=== PATIENT | female | born 1940 | race Caucasian/White ===

== ENCOUNTER 2017-03-09 09:26 | Emergency (ER) | payer OTHER ==
[2017-03-09 09:37] VITALS: BP 131/60; BMI 26.9
--- NOTE | 2017-03-09 09:41 | DR.GENAD ---
HPI - PCP Primary Care Physician: KOREY - Complaint/Symptoms Chief Complaint Doctors Comments: Patient fell on last night, this morning c/o left inner thigh pain. She denies pain at this time. Chief Complaint:: PT C/O LT GROIN PAIN S/P FALL LAST NIGHT. PT'S DAUGHTER STATES SHE FEEL LAST NIGHT AND HAS NOT BEEN ABLE TO WALK VERY WELL WITHOUT PAIN. PT STATES THE PAIN STARTS IN HER LT HIP AND RADIATES TO HER RT GROIN - Source History Provided: Patient - Mode of Arrival Mode of Arrival: Wheelchair - Timing Onset of Chief Complaint: 03/09/17 PMH - PMH Past Medical History: Yes Past Medical History: Diabetes, [place] Past Surgical History: Yes Surgical History: CABG/Valve Surgery - Family History History of Family Medical Conditions: No - Social History Does any household member use tobacco: No Alcohol Use: None Do you use any recreational Drugs:: No Lives With: Family Lives Where: Home - infectious screening In the last 2 months have you had wt loss of >10#?: NO Have you had fever, night sweats or hemotysis?: No Have you traveled outside the country in the last 6 months?: No Isolation: Standard ROS - Review of Systems Eyes: No Symptoms Reported ENTM: No Symptoms Reported Respiratoy: No Symptoms Reported Cardiovascular: No Symptoms Reported Gastrointestinal/Abdominal: No Symptoms Reported Genitourinary: No Symptoms Reported Neurological: No Symptoms Reported Musculoskeletal: No Symptoms Reported Integumentary: No Symptoms Reported Hematologic/Lymphatic: No Symptoms Reported Endocrine: No Symptoms Reported Psychiatric: No Symptoms Reported All Other Systems: Reviewed and Negative PE - Vital Signs Vitals: Temperature 98.2 F Pulse Rate 74 Respiratory Rate 18 Blood Pressure 131/60 O2 Sat by Pulse Oximetry 97 - General General Appearance: Alert - Head Head Exam: Normal Inspection, Atraumatic - Eyes Eye exam: Normal Appearance, PERRL - ENT ENT Exam: Normal Exam External Ear Exam: Normal External Inspection TM/Canal Exam: Bilateral Normal Nose Exam: Normal Nose Exam Mouth Exam: Normal Inspection Throat Exam: Normal Inspection - Neck Neck Exam: Normal Inspection - Chest Chest Inspection: Normal Inspection - Respiratory Respiratory Exam: Normal Lung Sounds Bilat Respiratory Exam: Bilateral Clear to Auscultation - Cardiovascular Cardiovascular Exam: Regular Rate, Normal Rhythm - Abdominal Exam Abdominal Exam: Normal Bowel Sounds Abdominal Tenderness: negative: RUQ, RLQ, LUQ, LLQ, Epigastrium, Suprapubic, Diffuse, Mild, Moderate, Severe, Other - Extremities Extremities Exam: Normal Inspection, Full ROM, Normal Capillary Refill - Back Back Exam: Normal Inspection, Full ROM - Neurologic Neurological Exam: Alert, Oriented X3, CN II-XII Intact - Psychiatric Psychiatric Exam: Normal Affect - Skin Skin Exam: Warm, Dry, Intact ROR - XRAY XRAY Interpreted by: Radiologist (Left Hip: There is no eficence for fracture, dislocation or bone destruction. Joint space narrowing with subchondral cystic changes are present. There is bony proliferation at the acetabular callie, deepining the acetabulum. Extensive vascular calcification is present. Impression: Lef hip osteoarthritis. No acute freatures demonstrated.) - Diagnosis Discharge Problem: Osteoarthritis of left hip Qualifiers: Osteoarthritis type: unspecified Qualified Code(s): M16.12 - Unilateral primary osteoarthritis, left hip - Discharge Plan Condition: Stable - Follow ups/Referrals Follow ups/Referrals: Malcolm Santana [Primary Care Provider] - 3 days - Instructions
--- NOTE | 2017-03-09 10:09 | RAD ---
Examination: Left hip, three views History: Groin pain Findings: There is no evidence for fracture, dislocation or bone destruction. Joint space narrowing w ith subchondral cystic changes are present. There is bony proliferation at the acetabular margin, carlos pening the acetabulum. Extensive vascular calcification is present. Impression: Left hip osteoarthritis. No acute features demonstrated. Reported By:
== END 2017-03-09 10:43 | disposition home or self-care (01) ==
LOC: ER 09:40
DX: M16.12 Unilateral primary osteoarthritis, left hip (principal); W19.XXXA Unspecified fall, initial encounter; Y92.9 Unspecified place or not applicable
CPT/HCPCS: 73501; 99282

== ENCOUNTER 2017-04-13 18:05 | Inpatient (IN) | payer OTHER ==
--- NOTE | 2017-04-13 18:48 | RAD ---
HISTORY: 76-year-old female vomiting and week. Patient feels she has something stuck in her throat. Study: Frontal and lateral views of the soft tissues of the neck Comparison: None. Status post median sternotomy with multiple surgical clips overlying the left hemithorax. The prevertebral soft tissues are unremarkable in their appearance. No evidence for foreign body can be identified. The hypopharynx and distal airway appear unremarkable. The bony cervical spine is g rossly unremarkable. IMPRESSION: 1. No radiographic evidence of foreign body within the imaged airway, oropharynx or nasopharynx. Reported By:
[2017-04-13] MEDS ORDERED: NS 1000 ML 1,000 ML IV ONE (18:49)
--- NOTE | 2017-04-13 18:54 | DR.GENAD ---
HPI - PCP Primary Care Physician: dwayne - Complaint/Symptoms Chief Complaint Doctors Comments: Patient reports that she thinks that she has something in her throat. She has been coughing with nausea. Denies fever. Chief Complaint:: patints family stated she has been vomiting today and very weak. patient states she thinks she has something in her throat. - Source History Provided: Patient - Mode of Arrival Mode of Arrival: Ambulatory - Timing Onset of Chief Complaint: 04/13/17 PMH - PMH Past Medical History: Yes Past Medical History: Diabetes, [place] Past Surgical History: Yes Surgical History: CABG/Valve Surgery - Family History History of Family Medical Conditions: No - Social History Does patient currently use any type of tobacco product: No Have you used tobacco products in the last 12 months: No Type of Tobacco Use: None Does any household member use tobacco: No Alcohol Use: None Do you use any recreational Drugs:: No Lives With: Family Lives Where: Home - infectious screening In the last 2 months have you had wt loss of >10#?: NO Have you had fever, night sweats or hemotysis?: No Have you traveled outside the country in the last 6 months?: No Isolation: Standard ROS - Review of Systems Eyes: No Symptoms Reported ENTM: No Symptoms Reported Respiratoy: Non-Productive Cough Cardiovascular: No Symptoms Reported Gastrointestinal/Abdominal: No Symptoms Reported Genitourinary: No Symptoms Reported Neurological: No Symptoms Reported Musculoskeletal: No Symptoms Reported Integumentary: No Symptoms Reported Hematologic/Lymphatic: No Symptoms Reported Endocrine: No Symptoms Reported Psychiatric: No Symptoms Reported All Other Systems: Reviewed and Negative PE - Vital Signs Vitals: Temperature 97.9 F Pulse Rate 93 Respiratory Rate 16 Blood Pressure 138/80 O2 Sat by Pulse Oximetry 98 - General Limitations: No Limitations General Appearance: Alert, In No Apparent Distress - Head Head Exam: Normal Inspection, Atraumatic - Eyes Eye exam: Normal Appearance, PERRL, EOMI - ENT ENT Exam: Normal Exam External Ear Exam: Normal External Inspection TM/Canal Exam: Bilateral Normal Nose Exam: Normal Nose Exam Mouth Exam: Normal Inspection Throat Exam: Normal Inspection - Neck Neck Exam: Normal Inspection - Chest Chest Inspection: Normal Inspection - Respiratory Respiratory Exam: Normal Lung Sounds Bilat Respiratory Exam: Bilateral Clear to Auscultation - Cardiovascular Cardiovascular Exam: Regular Rate - Abdominal Exam Abdominal Exam: Normal Inspection Abdominal Tenderness: negative: RUQ, RLQ, LUQ, LLQ, Epigastrium, Suprapubic, Diffuse, Mild, Moderate, Severe, Other - Extremities Extremities Exam: Normal Inspection, Full ROM - Back Back Exam: Normal Inspection, Full ROM - Neurologic Neurological Exam: Alert, Oriented X3, CN II-XII Intact - Psychiatric Psychiatric Exam: Normal Affect, Normal Mood - Skin Skin Exam: Warm, Dry Course - Consultation Called: 21:15 (Dr Santana agreet to admit for further management) ROR - Labs Reviewed Result Diagrams: 04/13/17 18:55 04/13/17 18:55 Laboratory: WBC 36.0 X10^3/uL (3.6-10.0) H* 04/13/17 18:55 RBC 3.84 X10^6/uL (3.5-5.4) 04/13/17 18:55 Hgb 11.4 g/dL (12.0-16.0) L 04/13/17 18:55 Hct 35.6 % (36.0-47.0) L 04/13/17 18:55 MCV 92.7 fL (80.0-100.0) 04/13/17 18:55 MCH 29.8 pg (27.0-34.0) 04/13/17 18:55 MCHC 32.1 g/dL (33.0-35.0) L 04/13/17 18:55 RDW 16.3 % (11.6-16.5) 04/13/17 18:55 Plt Count 153 X10^3/uL (150.0-450.0) 04/13/17 18:55 Plt Count Comment Adequate (ADEQUATE) 04/13/17 18:55 MPV 8.7 fL (7.4-11.0) 04/13/17 18:55 Neut % 20.3 % (42.0-75.0) L 04/13/17 18:55 Lymph % 0.2 % (21.0-51.0) L 04/13/17 18:55 [place] % 79.3 % (0.0-13.0) H 04/13/17 18:55 Eos % 0.1 % (0.9-2.9) L 04/13/17 18:55 Baso % 0.1 % (0.2-1.0) L 04/13/17 18:55 Neut # 7.3 x10^3/uL (2.2-4.8) H 04/13/17 18:55 Lymph # 0.1 X10^3/uL (1.3-2.9) L 04/13/17 18:55 [place] # 28.5 x10^3/uL (0.3-0.8) H 04/13/17 18:55 Eos # 0.0 x10^3/uL (0.0-0.2) 04/13/17 18:55 Baso # 0.0 X10^3/uL (0.0-0.1) 04/13/17 18:55 Absolute Nucleated RBC 0.3 /100WBC 04/13/17 18:55 Total Counted 100 04/13/17 18:55 Neutrophils % (Manual) 16 % (39-76) L 04/13/17 18:55 Lymphocytes % (Manual) 35 % (13-43) 04/13/17 18:55 Monocytes % (Manual) 2 % (4-9) L 04/13/17 18:55 Eosinophils % (Manual) 1 % (0-6) 04/13/17 18:55 Atypical Lymphocytes 46 04/13/17 18:55 Plt Morphology Comment Normal (NORMAL) 04/13/17 18:55 RBC Morphology Normal (NORMAL) 04/13/17 18:55 Sodium 139 mmol/L (136-145) 04/13/17 18:55 Corrected Sodium TNP 04/13/17 18:55 Potassium 3.8 mmol/L (3.5-5.1) 04/13/17 18:55 Chloride 104 mmol/L (98-107) 04/13/17 18:55 Carbon Dioxide 26.3 mmol/L (21-32) 04/13/17 18:55 BUN 13 mg/dL (7-18) 04/13/17 18:55 Creatinine 1.07 mg/dL (0.55-1.02) H 04/13/17 18:55 Est GFR (MDRD) Af Amer > 60 (>60) 04/13/17 18:55 Est GFR (MDRD) Non-Af 53 (>60) L 04/13/17 18:55 Glucose 74 mg/dL (65-99) 04/13/17 18:55 Calcium 8.5 mg/dL (8.5-10.1) 04/13/17 18:55 Corrected Calcium Cancelled 04/13/17 18:55 Total Bilirubin Cancelled 04/13/17 18:55 AST Cancelled 04/13/17 18:55 ALT Cancelled 04/13/17 18:55 Alkaline Phosphatase Cancelled 04/13/17 18:55 C-Reactive Protein 15.80 mg/L (0-3.0) H 04/13/17 18:55 Total Protein Cancelled 04/13/17 18:55 Albumin Cancelled 04/13/17 18:55 Globulin Cancelled 04/13/17 18:55 Albumin/Globulin Ratio Cancelled 04/13/17 18:55 - XRAY XRAY Interpreted by: Self (Chest: Left lower lobe infiltrate c/w with pneumonia) - Diagnosis Discharge Problem: LLL pneumonia Qualifiers: Pneumonia type: due to unspecified organism Qualified Code(s): J18.1 - Lobar pneumonia, unspecified organism - Discharge Plan Condition: Stable - Follow ups/Referrals Follow ups/Referrals: Malcolm Santana [Primary Care Provider] - 3 days - Instructions
[2017-04-13 19:10] LABS: BLOOD UREA NITROGEN 13 mg/dL (7-18); CALCIUM 8.5 mg/dL (8.5-10.1); CARBON DIOXIDE 26.3 mmol/L (21-32); CHLORIDE 104 mmol/L (98-107); CREATININE 1.07 mg/dL (0.55-1.02); SODIUM 139 mmol/L (136-145); eGFR BLACK RACES > 60 (>60); eGFR NON BLACK RACES 53 (>60)
[2017-04-13] MEDS ORDERED: NS 1000 ML 1,000 ML ONE (19:11)
[2017-04-13 19:13] LABS: BASOPHILS % (AUTO) 0.1 % (0.2-1.0); EOSINOPHILS % (AUTO) 0.1 % (0.9-2.9); HEMATOCRIT 35.6 % (36.0-47.0); HEMOGLOBIN 11.4 g/dL (12.0-16.0); LYMPHOCYTES # (AUTO) 0.1 X10^3/uL (1.3-2.9); LYMPHOCYTES % (AUTO) 0.2 % (21.0-51.0); MEAN CORPUSCULAR HEMOGLOBIN 29.8 pg (27.0-34.0); MEAN CORPUSCULAR HGB CONC 32.1 g/dL (33.0-35.0); MEAN CORPUSCULAR VOLUME 92.7 fL (80.0-100.0); MEAN PLATELET VOLUME 8.7 fL (7.4-11.0); MONOCYTES # (AUTO) 28.5 x10^3/uL (0.3-0.8); MONOCYTES % (AUTO) 79.3 % (0.0-13.0); NEUTROPHILS # (AUTO) 7.3 x10^3/uL (2.2-4.8); NEUTROPHILS % (AUTO) 20.3 % (42.0-75.0); PLATELET COUNT 153 X10^3/uL (150.0-450.0); RED BLOOD COUNT 3.84 X10^6/uL (3.5-5.4); RED CELL DISTRIBUTION WIDTH 16.3 % (11.6-16.5)
[2017-04-13 19:51] LABS: PLATELET MORPHOLOGY COMMENT NORMAL (NORMAL)
[2017-04-13] MEDS ORDERED: ZOFRAN INJ 4 MG VIAL IVP ONE (19:57)
[2017-04-13] MEDS ORDERED: ZOFRAN INJ 4 MG VIAL ONE (20:05)
[2017-04-13] MEDS ORDERED: TUSSIONEX PENNKINETIC SUSP PO PRN (21:23)
--- NOTE | 2017-04-13 21:30 | RAD ---
HISTORY: 76-year-old female vomiting with shortness of breath and weakness. Study: Frontal view of the chest. Comparison: None. Findings: Status post CABG with multiple surgical clips overlying the left taye thorax. The trachea is midline. The cardiac silhouette is enlarged with moderate pulmonary edema, small bila teral effusions and patchy airspace opacities in the lung bases. Prominent perihilar lung markings. No pneumothorax. Soft tissues are unremarkable. Osseous structures are unremarkable. IMPRESSION: 1. Cardiomegaly with moderate pulmonary edema and small effusions. 2. Patchy airspace opacities in the lung bases, atelectasis versus infection, correlate clinically. Reported By:
[2017-04-13] MEDS: NS IV SCH (21:35)
[2017-04-13] MEDS: ROCEPHIN IV SCH (21:35)
[2017-04-13] MEDS: NS 1/2 1000 ML IV 1,000 ML IV SCH (21:35)
[2017-04-13] MEDS ORDERED: ATIVAN INJ 2 MG VIAL IVP ONE (21:50)
[2017-04-13] MEDS ORDERED: ATIVAN INJ 2 MG VIAL ONE (21:52)
[2017-04-13] MEDS ORDERED: NS 1/2 1000 ML IV 1,000 ML IV SCH (22:00)
[2017-04-13 23:02] VITALS: BMI 20.9
[2017-04-14] MEDS: DUONEB 0.5 MG/3 MG NEB SCH ×5 (06:00→21:39)
[2017-04-14 06:18] LABS: BASOPHILS % (AUTO) 0 % (0.2-1.0); EOSINOPHILS % (AUTO) 0.1 % (0.9-2.9); HEMOGLOBIN 9.7 g/dL (12.0-16.0)
[2017-04-14 06:22] LABS: ALANINE AMINOTRANSFERASE 16 Units/L (12-78); ALBUMIN 2.3 g/dL (3.4-5.0); ALKALINE PHOSPHATASE 143 Units/L (46-116); ASPARTATE AMINO TRANSFERASE 45 Units/L (15-37); BLOOD UREA NITROGEN 12 mg/dL (7-18); CALCIUM 7.9 mg/dL (8.5-10.1); CARBON DIOXIDE 27.9 mmol/L (21-32); CHLORIDE 106 mmol/L (98-107); COR CA(FOR HYPOALB) 9.3 mg/dL (8.5-10.1); CREATININE 1.06 mg/dL (0.55-1.02); SODIUM 141 mmol/L (136-145); TOTAL PROTEIN 5.6 g/dL (6.4-8.2); eGFR BLACK RACES > 60 (>60); eGFR NON BLACK RACES 53 (>60)
[2017-04-14 06:27] LABS: BILIRUBIN,URINE NEGATIVE (NEGATIVE); BLOOD/HEMOGLOBIN,URINE 2+ (NEGATIVE); GLUCOSE, URINE NEGATIVE (NEGATIVE); KETONES,URINE NEGATIVE (NEGATIVE); LEUKOCYTE ESTERASE ,URINE 3+ (NEGATIVE); NITRITES,URINE NEGATIVE (NEGATIVE); PROTEIN,URINE 2+ (NEGATIVE); UROBILINOGEN,URINE NORMAL (NORMAL)
[2017-04-14 06:30] LABS: HEMATOCRIT 30.2 % (36.0-47.0); LYMPHOCYTES # (AUTO) 0.1 X10^3/uL (1.3-2.9); LYMPHOCYTES % (AUTO) 0.2 % (21.0-51.0); MEAN CORPUSCULAR HEMOGLOBIN 29.5 pg (27.0-34.0); MEAN CORPUSCULAR HGB CONC 32.1 g/dL (33.0-35.0); MEAN CORPUSCULAR VOLUME 91.8 fL (80.0-100.0); MEAN PLATELET VOLUME 8.9 fL (7.4-11.0); MONOCYTES # (AUTO) 31.6 x10^3/uL (0.3-0.8); MONOCYTES % (AUTO) 82.1 % (0.0-13.0); NEUTROPHILS # (AUTO) 6.8 x10^3/uL (2.2-4.8); NEUTROPHILS % (AUTO) 17.6 % (42.0-75.0); PLATELET COUNT 145 X10^3/uL (150.0-450.0); RED BLOOD COUNT 3.29 X10^6/uL (3.5-5.4)
[2017-04-14 06:33] LABS: APPEARANCE,URINE SLIGHTLY HAZY (CLEAR); COLOR,URINE YELLOW (YELLOW); SQUAMOUS EPITHELIAL CELL,UR RARE /HPF (NEGATIVE)
[2017-04-14 06:34] LABS: AMORPHOUS SEDIMENT,UR 1+ /HPF (NEGATIVE); BACTERIA,URINE TRACE /HPF (NEGATIVE)
[2017-04-14 06:46] LABS: WHITE BLOOD COUNT 38.5 X10^3/uL (3.6-10.0)
[2017-04-14 06:47] LABS: PLATELET MORPHOLOGY COMMENT NORMAL (NORMAL)
[2017-04-14] MEDS ORDERED: VIBRAMYCIN 100 MG in NS 100 ML IV + SPIKE MINIBAG* 100 ML IV SCH (09:00)
[2017-04-14] MEDS: NS IV SCH (09:22)
[2017-04-14] MEDS: ROCEPHIN IV SCH (09:22)
[2017-04-14] MEDS: ROBITUSSIN DM PO SCH ×4 (09:22→21:41)
[2017-04-14] MEDS ORDERED: NEURONTIN CAP 100 MG PO PRN (09:53)
[2017-04-14] MEDS ORDERED: VITAMIN D (1.25MG) PO SCH (10:00)
[2017-04-14] MEDS ORDERED: PATIENT'S HOME MEDICATION (Ferrous Sulfate [Ferrous Sulfate] 325 MG) PO SCH (10:00)
[2017-04-14] MEDS ORDERED: DOCUSATE SODIUM 250 MG PO SCH (10:00)
[2017-04-14] MEDS: MEGACE PO SCH ×2 (10:54→21:41)
[2017-04-14] MEDS: LOPRESSOR TAB 25 MG PO SCH ×2 (10:54→21:41)
[2017-04-14] MEDS: ASPIRIN EC 81 MG PO SCH (10:54)
[2017-04-14] MEDS: FOLIC ACID TAB 1 MG PO SCH (10:54)
[2017-04-14] MEDS: PROzac PO SCH (10:54)
[2017-04-14] MEDS: SYNTHROID 25 mcg TAB PO SCH (10:54)
[2017-04-14] MEDS ORDERED: NS 1/2 1000 ML IV 1,000 ML IV ONE (10:57)
--- NOTE | 2017-04-14 11:26 | DR.H&P ---
H&P - History & Physical for Day of: H&P Date: 04/13/17 - Chief Complaint Chief Complaint: weakness, N/V, cough - Allergies Allergies/Adverse Reactions: Allergies Allergy/AdvReac Type Severity Reaction Status Date / Time No Known Drug Allergies Allergy Verified 04/13/17 18:06 - History of Present Illness History of Present Illness: is a 76 year old patient of ours who presented to the emergency room with family with complaints of weakness, nausea , and vomiting. Patient reports that she feels like she has something stuck in her throat. Symptoms reportedly started early today and have progressively gotten worse. Pertinent medical history includes CAD, [place], hyperlipidemia, hypertension, CABG, pneumonia, constipation, urinary tract infections, muscle weakness, arthritis, diabetes, hypothyroidism, anemia, skin cancer, anxiety, depression, and CABG/valve surgery. On examination, patient is noted with an intermittent, non-productive cough. Heart is regular in rate and rhythm. Diminished lung sounds are noted bilaterally throughout. Abdomen is round, soft , and non-tender with normal bowel sounds noted in all quadrants. Bilateral lower extremities are noted with 3+ pitting edema. On arrival to the emergency room, vitals were 97.8, 100, 28, 95%RA, 160/87. Labs were obtained. Abnormal Lab values include: WBC 36.0, Hgb 11.4, Hct 35.6, MCHC 32.1, Creatinine 1.07, GFR(non) 53, CRP 15.80. Urinalysis reported WBC TNTC, RBC 10-12, Bacteria Trace , Leukocytes 3+, Protein 2+. A urine culture and sputum culture are pending. Chest xray reported: Cardiomegaly with moderate pulmonary edema and small effusions. Patchy airspace opacities in the lung bases, atelectasis versus infection, correlate clinically. A soft tissue neck CT was obtained to rule out foreign body. It reported Soft tissue neck CT: No radiographic evidence of foreign body within the imaged airway, oropharynx, or nasopharynx. She was given a normal saline bolus in the ER. We admitted patient for further treatment and evaluation for LLL pneumonia and urinary tract infection. She was started on the pneumonia protocol with Rocephin 1500mg IV daily. We plan to follow up with AM labs and chest xray and continue to monitor patient. - Past Medical History Past Medical History: Diabetes, [place] - Past Surgical History Surgical History: CABG/Valve Surgery - Family History Family Medical History: Diabetes Mellitus, Cancer, Coronary Artery Disease, Hypertension - Social History Does patient currently use any type of tobacco product: No Have you used tobacco products in the last 12 months: No Type of Tobacco Use: None Does any household member use tobacco: No Alcohol Use: None Drug Use: None - Medications Home Medications: Alprazolam [Alprazolam] 0.5 mg PO BID 04/13/17 [History Confirmed 04/13/17] Aspirin EC [ASPIRIN EC 81 MG *] 81 mg PO DAILY 04/13/17 [History Confirmed 04/13] Atorvastatin Calcium 40 mg PO DAILYHS 04/13/17 [History Confirmed 04/13/17] Docusate Sodium [Col-Rite] 250 mg PO DAILY 04/13/17 [History Confirmed 04/13/17] Ergocalciferol [Vitamin D (1.25MG)] 50,000 unit PO WEEKLY 04/13/17 [History Confirmed 04/13/17] Ferrous Sulfate 325 mg PO DAILY 04/13/17 [History Confirmed 04/13/17] Fluoxetine HCl [FLUOXETINE 20 MG *] 20 mg PO DAILY 04/13/17 [History Confirmed 04/13/17] Folic Acid [Folic Acid Tab 1 mg] 1 mg PO DAILY 04/13/17 [History Confirmed 04/13] Gabapentin [Gabapentin] 100 mg PO BID PRN 04/13/17 [History Confirmed 04/13/17] Levothyroxine Sodium 25 mcg PO DAILY 04/13/17 [History Confirmed 04/13/17] Megestrol Acetate [Megace] 40 mg PO BID 04/13/17 [History Confirmed 04/13/17] Meloxicam [Meloxicam] 15 mg PO DAILY 04/13/17 [History Confirmed 04/13/17] Metoprolol Tartrate 25 mg PO BID 04/13/17 [History Confirmed 04/13/17] - Review of Systems Constitutional: Weakness Eyes: No Symptoms Reported. denies: See HPI, Pain, Vision Change, Conjunctivae Inflammation, Eyelid Inflammation, Redness, Other ENT: No Symptoms Reported. denies: See HPI, Ear Pain, Ear Discharge, Nose Pain , Nose Discharge, Nose Congestion, Mouth Pain, Mouth Swelling, Throat Pain, Throat Swelling, Other Respiratory: Cough, Shortness of Breath Cardiovascular: No Symptoms Reported, Edema Gastrointestinal: Nausea, Vomiting. denies: Abdominal Pain, Diarrhea, Constipation, Hematochezia Genitourinary: denies: No Symptoms Reported, See HPI, Dysuria, Frequency, Incontinence, Hematuria, Retention, Other Musculoskeletal: No Symptoms Reported. denies: See HPI, Shoulder Pain, Arm Pain , Back Pain, Hand Pain, Leg Pain, Foot Pain, Neck Pain, Other Skin: No Symptoms Reported. denies: See HPI, Rash, Lesions, Jaundice, Bruising , Wound, Ecchymosis, Other Neurological: Weakness - Physical Exam Vital Signs: Temperature 98.6 F Pulse Rate [Left Radial] 107 Pulse Rate 100 Respiratory Rate 20 Blood Pressure [Right Arm] 184/78 Blood Pressure 138/80 O2 Sat by Pulse Oximetry 95 Oriented: Normal Eyes: Normal. negative: Blurred Vision, Diplopia, Discharge, Pain, Redness, Photophobia, Other Ear: Normal. negative: Right, Left, Swelling, Ecchymosis, Hemotypanum, Abrasion , Laceration Nose: Normal. negative: Injected, Discharge, Blood, Other Throat: Normal. negative: Tonsillar Hypertrophy, Red, Exudate, Dry, Other Respiratory: Diminished Throughout Cardiovascular: Edema (3+ pitting edema to bilateral lower extremities ) : Normal. negative: Dysuria, Hematuria, Frequency, Discharge, Testicular Pain , Bleeding, , Other Auscultation: Bowel Sounds: Normal. negative: Bruit, Absent, Increased, Decreased, High Pitched, Other Palpation: Normal. negative: Spleen Enlarged, Liver Enlarged, Mass Pulsatile, Other Tenderness: Normal. negative: Diffuse, RUQ, RLQ, LUQ, LLQ, Epigastric, Periumbilical, Suprapubic, Mild, Moderate, Severe, Rebound, Guarding, Rigidity, Other Skin: Normal. negative: Decreased Turgur, Rash, Papular, Macular, Maculopapular , Vesicular, Pustular, Petechial, Red, Tender, Hot, Diaphoresis, Wound, Bruising , Ecchymosis, Other Musculoskeletal: Normal. negative: Right, Left, Shoulder, Clavicle, Arm, Elbow , Forearm, Wrist, Hand, Hip, Thigh, Knee, Leg, Ankle, Foot, Back:Thoracic, Back: Lumbar, Back:Midline, Back:Paraspinous, Pelvis, Swelling, Tender, Deformity, Pulse Deficit, Motor Deficit, Sensory Deficit, Instability, Crepitance Psychiatric: Normal Mood Description: Calm Affect: Normal Speech Pattern: Clear - Assessment/Plan (1) LLL pneumonia Qualifiers: Pneumonia type: due to unspecified organism Qualified Code(s): J18.1 - Lobar pneumonia, unspecified organism Status: Acute Plan: pneumonia protocol, rocephin 1500mg iv daily, supplemental oxygen, duonebs , continue to monitor (2) Urinary tract infection Qualifiers: Urinary tract infection type: acute cystitis Hematuria presence: with hematuria Qualified Code(s): N30.01 - Acute cystitis with hematuria Status: Acute Plan: rocephin 1500mg iv daily, continue to monitor
[2017-04-14] MEDS: NS 1/2 1000 ML IV 1,000 ML IV SCH (11:43)
[2017-04-14] MEDS: SNACK - Diabetic Appropriate PO SCH ×2 (15:29→22:30)
[2017-04-14] MEDS: LEVAQUIN PREMIX IV 750 MG 750 MG/150 ML BAG IV SCH (15:57)
[2017-04-14] MEDS: ALBUMIN HUMAN 25%- 100ML 100 ML IV SCH (15:57)
[2017-04-14] MEDS: XANAX PO SCH ×2 (16:00→22:31)
[2017-04-14] MEDS: FORTAZ or TAZICEF INJ 1 GM in NS 50 ML IV 50 ML IV SCH ×2 (16:00→22:31)
[2017-04-14] MEDS ORDERED: PHARMACY CONSULT - TPN XX SCH (16:00)
[2017-04-14] MEDS: CLINIMIX 4.25 %/10 % 1,000 ML with MVI INJ (ADULT) 10 ML, TRACE ELEMENTS INJ 10 ML, DRU... IV SCH ×4 (16:01)
[2017-04-14] MEDS: LIPITOR TAB 40 MG PO SCH (21:41)
[2017-04-14] MEDS: COLACE CAP 100 MG PO SCH (21:41)
[2017-04-15] MEDS: DUONEB 0.5 MG/3 MG NEB SCH ×6 (01:47→22:46)
[2017-04-15] MEDS ORDERED: HumuLIN R SUBCUT PRN (03:34)
[2017-04-15] MEDS: NS 1/2 1000 ML IV 1,000 ML IV SCH (05:34)
[2017-04-15] MEDS: FORTAZ or TAZICEF INJ 1 GM in NS 50 ML IV 50 ML IV SCH ×3 (05:34→21:26)
[2017-04-15] MEDS: CLINIMIX 4.25 %/10 % 1,000 ML with MVI INJ (ADULT) 10 ML, TRACE ELEMENTS INJ 10 ML, DRU... IV SCH ×8 (05:34→21:18)
[2017-04-15 06:10] LABS: BASOPHILS % (AUTO) 0 % (0.2-1.0); EOSINOPHILS # (AUTO) 0.1 x10^3/uL (0.0-0.2); EOSINOPHILS % (AUTO) 0.3 % (0.9-2.9); HEMATOCRIT 29.5 % (36.0-47.0); HEMOGLOBIN 9.6 g/dL (12.0-16.0); LYMPHOCYTES # (AUTO) 0 X10^3/uL (1.3-2.9); LYMPHOCYTES % (AUTO) 0 % (21.0-51.0); MEAN CORPUSCULAR HEMOGLOBIN 30.1 pg (27.0-34.0); MEAN CORPUSCULAR HGB CONC 32.5 g/dL (33.0-35.0); MEAN CORPUSCULAR VOLUME 92.6 fL (80.0-100.0); MEAN PLATELET VOLUME 9.1 fL (7.4-11.0); MONOCYTES % (AUTO) 80.6 % (0.0-13.0); NEUTROPHILS # (AUTO) 6.4 x10^3/uL (2.2-4.8); NEUTROPHILS % (AUTO) 19.1 % (42.0-75.0); PLATELET COUNT 133 X10^3/uL (150.0-450.0); RED BLOOD COUNT 3.19 X10^6/uL (3.5-5.4); RED CELL DISTRIBUTION WIDTH 16.3 % (11.6-16.5)
[2017-04-15 06:15] LABS: WHITE BLOOD COUNT 33.6 X10^3/uL (3.6-10.0)
[2017-04-15 06:18] LABS: ALBUMIN 2.4 g/dL (3.4-5.0); COR CA(FOR HYPOALB) 9.3 mg/dL (8.5-10.1); CREATININE 1.19 mg/dL (0.55-1.02); TOTAL PROTEIN 5.2 g/dL (6.4-8.2)
[2017-04-15 07:30] LABS: PLATELET MORPHOLOGY COMMENT NORMAL (NORMAL)
--- NOTE | 2017-04-15 07:46 | RAD ---
HISTORY: Follow-up left lower lobe pneumonia Study: Single-view chest Comparison: April 13, 2017 Findings: Prior sternotomy and aortic atherosclerosis are noted. The trachea is midline. The cardiac silhouett e is enlarged with central vascular congestion and diffuse interstitial thickening some of which is l ikely chronic but with superimposed interstitial edema likely perhaps in the setting of congestive fa ilure. There is overall improved aeration of the left lung base with trace residual fluid and consol idation noted but with interval progressive fluid and consolidation in the right lung base which agai n could reflect edema or pneumonia. There is no pneumothorax. The bony thorax is grossly unremarkab le. IMPRESSION: Radiographic findings favored to represent a background of interstitial edema likely in the setting o f congestive failure with overall improved aeration of the left lower lung but with progressive fluid and consolidation in the right lower lobe for which superimposed pneumonia is not excluded. Reported By:
[2017-04-15] MEDS: ALBUMIN HUMAN 25%- 100ML 100 ML IV SCH (09:20)
[2017-04-15] MEDS: XANAX PO SCH ×2 (09:23→21:31)
[2017-04-15] MEDS: HEMOCYTE-PLUS PO SCH (09:23)
[2017-04-15] MEDS: LOPRESSOR TAB 25 MG PO SCH ×2 (09:23→21:30)
[2017-04-15] MEDS: MEGACE PO SCH ×2 (09:23→21:30)
[2017-04-15] MEDS: FOLIC ACID TAB 1 MG PO SCH (09:23)
[2017-04-15] MEDS: SYNTHROID 25 mcg TAB PO SCH (09:23)
[2017-04-15] MEDS: ASPIRIN EC 81 MG PO SCH (09:23)
[2017-04-15] MEDS: ROBITUSSIN DM PO SCH ×4 (09:23→21:34)
[2017-04-15] MEDS: PROzac PO SCH (09:23)
[2017-04-15] MEDS: LEVAQUIN PREMIX IV 750 MG 750 MG/150 ML BAG IV SCH (09:55)
[2017-04-15] MEDS ORDERED: ZOFRAN INJ 4 MG VIAL IVP PRN (12:25)
[2017-04-15] MEDS: LIPITOR TAB 40 MG PO SCH (21:29)
[2017-04-15] MEDS: COLACE CAP 100 MG PO SCH (21:29)
[2017-04-16] MEDS: DUONEB 0.5 MG/3 MG NEB SCH ×6 (01:20→21:08)
[2017-04-16 05:48] LABS: ALANINE AMINOTRANSFERASE 13 Units/L (12-78); ALBUMIN 2.4 g/dL (3.4-5.0); ALKALINE PHOSPHATASE 106 Units/L (46-116); ASPARTATE AMINO TRANSFERASE 30 Units/L (15-37); BLOOD UREA NITROGEN 17 mg/dL (7-18); CALCIUM 8.2 mg/dL (8.5-10.1); CARBON DIOXIDE 27.6 mmol/L (21-32); CHLORIDE 103 mmol/L (98-107); COR CA(FOR HYPOALB) 9.5 mg/dL (8.5-10.1); COR NA(FOR HYPERGLY) 140 mmol/L (136-145); CREATININE 1.09 mg/dL (0.55-1.02); SODIUM 139 mmol/L (136-145); TOTAL PROTEIN 5.3 g/dL (6.4-8.2); eGFR BLACK RACES > 60 (>60); eGFR NON BLACK RACES 52 (>60)
[2017-04-16] MEDS: FORTAZ or TAZICEF INJ 1 GM in NS 50 ML IV 50 ML IV SCH ×3 (06:00→21:36)
[2017-04-16 06:12] LABS: BASOPHILS % (AUTO) 0 % (0.2-1.0); EOSINOPHILS # (AUTO) 0.2 x10^3/uL (0.0-0.2); EOSINOPHILS % (AUTO) 0.5 % (0.9-2.9); HEMATOCRIT 27.9 % (36.0-47.0); HEMOGLOBIN 9.1 g/dL (12.0-16.0); LYMPHOCYTES # (AUTO) 0.7 X10^3/uL (1.3-2.9); LYMPHOCYTES % (AUTO) 2.1 % (21.0-51.0); MEAN CORPUSCULAR HEMOGLOBIN 29.6 pg (27.0-34.0); MEAN CORPUSCULAR HGB CONC 32.6 g/dL (33.0-35.0); MEAN CORPUSCULAR VOLUME 90.9 fL (80.0-100.0); MEAN PLATELET VOLUME 9.4 fL (7.4-11.0); MONOCYTES # (AUTO) 26.1 x10^3/uL (0.3-0.8); MONOCYTES % (AUTO) 77.4 % (0.0-13.0); NEUTROPHILS # (AUTO) 6.7 x10^3/uL (2.2-4.8); PLATELET COUNT 123 X10^3/uL (150.0-450.0); RED BLOOD COUNT 3.07 X10^6/uL (3.5-5.4); RED CELL DISTRIBUTION WIDTH 16.5 % (11.6-16.5)
[2017-04-16 06:29] LABS: WHITE BLOOD COUNT 33.7 X10^3/uL (3.6-10.0)
[2017-04-16 06:41] LABS: PLATELET MORPHOLOGY COMMENT NORMAL (NORMAL)
--- NOTE | 2017-04-16 08:02 | RAD ---
Findings: Examination: Portable AP chest History: Pneumonia Comparison 04/15/2017 Findings: Continued cardiac enlargement with pulmonary vascular distention and bibasal densities cons istent with airspace disease/edema, and pleural fluid. No complicating pneumothorax is seen. The uppe r lobes remain relatively clear. Impression: No definite change since 1 day earlier. Stable cardiac enlargement and CHF with suspect b maig pneumonia and pleural fluid. Reported By:
[2017-04-16] MEDS: ALBUMIN HUMAN 25%- 100ML 100 ML IV SCH (09:13)
[2017-04-16] MEDS: LEVAQUIN PREMIX IV 750 MG 750 MG/150 ML BAG IV SCH (09:13)
[2017-04-16] MEDS: FOLIC ACID TAB 1 MG PO SCH (09:13)
[2017-04-16] MEDS: SYNTHROID 25 mcg TAB PO SCH (09:13)
[2017-04-16] MEDS: HEMOCYTE-PLUS PO SCH (09:14)
[2017-04-16] MEDS: MEGACE PO SCH ×2 (09:14→21:35)
[2017-04-16] MEDS: PROzac PO SCH (09:14)
[2017-04-16] MEDS: XANAX PO SCH ×2 (09:14→21:36)
[2017-04-16] MEDS: LOPRESSOR TAB 25 MG PO SCH ×2 (09:14→21:34)
[2017-04-16] MEDS: ROBITUSSIN DM PO SCH ×4 (09:15→21:35)
[2017-04-16] MEDS: CLINIMIX 4.25 %/10 % 1,000 ML with MVI INJ (ADULT) 10 ML, TRACE ELEMENTS INJ 10 ML, DRU... IV SCH ×4 (09:15)
[2017-04-16] MEDS: ASPIRIN EC 81 MG PO SCH (09:15)
[2017-04-16] MEDS: COLACE CAP 100 MG PO SCH (21:33)
[2017-04-16] MEDS: LIPITOR TAB 40 MG PO SCH (21:34)
--- NOTE | 2017-04-16 21:57 | PCM.PROG ---
Progress Note - Progress Note for Day of Date: 04/14/17 - Subjective Subjective: WAS ADMITTED FOR LLL PNEUMONIA. TODAY, SHE IS ALERT AND ORIENTED, SITTING UP IN BED ON MORNING ROUNDS. TODAY, SHE CONTINUES WITH COMPLAINTS OF WEAKNESS, PERSISTENT, PRODUCTIVE COUGH, AND SHORTNESS OF BREATH. SHE REPORTS THAT NAUSEA AND VOMITING HAS IMPROVED SINCE ADMISSION. ON EXAMINATION, HEART IS REGULAR IN RATE AND RHYTHM. SHE IS NOTED WITH COURSE WHEEZING AND RHONCHI THROUGOUT. SHE IS CURRENTLY UTILIZING OXYGEN VIA NASAL CANNULA AT 2L/MIN. ABDOMEN IS ROUND, SOFT, AND NOTED WITH DIFFUSE TENDERNESS ON PALPATION. PATIENT REPORTS DARK STOOLS. BILATERAL LOWER EXTREMITIES CONTINUE WITH 1+ PITTING EDEMA. THERE IS NORMAL RANGE OF MOTION NOTED TO ALL EXTREMITIES. HER VITALS THIS MORNING ARE 98.6-107-20-95%-184/78. LABS WERE OBTAINED THIS MORNING. ABNORMAL LAB VALUES INCLUDE THE FOLLOWING: WBC INCREASED FROM 36.0 TO 38.5, RBC 3.29, HGB 9.7, HCT 30.2, PLT COUNT 145, CREATININE 1.06, GLUCOSE 44, CALCIUM 7.9, AST 45, ALK PHOS 143, TOTAL PROTEIN 5.6, ALBUMIN 2.3. WE OBTAINED A URINALYSIS THIS MORNING. IT REPORTED WBC TNTC, RBC 10-12, LEUKOCYTES 3+, BACTERIA TRACE, PROTEIN 2+, OCCULT BLOOD 2+. URINE CULTURE AND SPUTUM CULTURES ARE PENDING. A PERIPHERAL SMEAR IS ALSO PENDING. TODAY, WE WILL DISCONTINUE ROCEPHIN AND START FORTAZ 1GM IV Q8H AND LEVAQUIN 750MG IV DAILY. WE WILL ALSO START ALBUMIN 25% IV DAILY AND TPN AT 50ML/HR. WE WILL HEMOCCULT STOOLS. OTHERWISE, WE WILL CONTINUE CURRENT PLAN OF CARE. WE PLAN TO FOLLOW UP WITH AM LABS AND CHEST XRAY AND CONTINUE TO MONITOR PATIENT. - Past Medical Family Social History Past Med/Fam/Surg Hx: No changes since H&P Allergies: Allergies No Known Drug Allergies Allergy (Verified 04/13/17 18:06) - Review of Systems ROS: No change since H&P - Vital Signs and I&O's Vital Signs: Temperature 99.2 F Pulse Rate [Left Radial] 89 Pulse Rate 94 Respiratory Rate 20 Blood Pressure [Right Arm] 147/76 Blood Pressure 138/80 O2 Sat by Pulse Oximetry 94 Intake and Output: Intake & Output 0104/15/17 04/16/17 04/17/17 11:59 11:59 11:59 11:59 Intake Total 605 2810 800 1410 Output Total 200 600 500 Balance 605 2610 200 910 - Physical Exam Oriented: Normal Eyes: Normal. negative: Blurred Vision, Diplopia, Discharge, Pain, Redness, Photophobia, Other Ear: Normal. negative: Right, Left, Swelling, Ecchymosis, Hemotypanum, Abrasion , Laceration Nose: Normal. negative: Injected, Discharge, Blood, Other Throat: Normal. negative: Tonsillar Hypertrophy, Red, Exudate, Dry, Other Respiratory: Right, Left, Generalized, Wheezes, Rhonchi Cardiovascular: Edema (3+ pitting edema to bilateral lower extremities ) : Normal. negative: Dysuria, Hematuria, Frequency, Discharge, Testicular Pain , Bleeding, , Other Auscultation: Bowel Sounds: Normal. negative: Bruit, Absent, Increased, Decreased, High Pitched, Other Palpation: Normal Tenderness: Normal. negative: Diffuse, RUQ, RLQ, LUQ, LLQ, Epigastric, Periumbilical, Suprapubic, Mild, Moderate, Severe, Rebound, Guarding, Rigidity, Other Skin: Normal. negative: Decreased Turgur, Rash, Papular, Macular, Maculopapular , Vesicular, Pustular, Petechial, Red, Tender, Hot, Diaphoresis, Wound, Bruising , Ecchymosis, Other Musculoskeletal: Normal. negative: Right, Left, Shoulder, Clavicle, Arm, Elbow , Forearm, Wrist, Hand, Hip, Thigh, Knee, Leg, Ankle, Foot, Back:Thoracic, Back: Lumbar, Back:Midline, Back:Paraspinous, Pelvis, Swelling, Tender, Deformity, Pulse Deficit, Motor Deficit, Sensory Deficit, Instability, Crepitance Psychiatric: Normal Mood Description: Calm Affect: Normal Speech Pattern: Clear, Appropriate - Laboratory and Diagnostics Result Diagrams: 04/16/17 04:50 04/16/17 04:50 Labs: 04/14/17 05:33 Urine,Catheterized Urine Culture - Final 04/13/17 23:49 Sputum - Expectorated Sputum Sputum Culture - Final 04/13/17 23:49 Sputum - Expectorated Sputum - Final Laboratory WBC 33.7 X10^3/uL (3.6-10.0) H* 04/16/17 04:50 RBC 3.07 X10^6/uL (3.5-5.4) L 04/16/17 04:50 Hgb 9.1 g/dL (12.0-16.0) L 04/16/17 04:50 Hct 27.9 % (36.0-47.0) L 04/16/17 04:50 MCV 90.9 fL (80.0-100.0) 04/16/17 04:50 MCH 29.6 pg (27.0-34.0) 04/16/17 04:50 MCHC 32.6 g/dL (33.0-35.0) L 04/16/17 04:50 RDW 16.5 % (11.6-16.5) 04/16/17 04:50 Plt Count 123 X10^3/uL (150.0-450.0) L 04/16/17 04:50 Plt Count Comment Adequate (ADEQUATE) 04/16/17 04:50 MPV 9.4 fL (7.4-11.0) 04/16/17 04:50 Neut % 20.0 % (42.0-75.0) L 04/16/17 04:50 Lymph % 2.1 % (21.0-51.0) L 04/16/17 04:50 [place] % 77.4 % (0.0-13.0) H 04/16/17 04:50 Eos % 0.5 % (0.9-2.9) L 04/16/17 04:50 Baso % 0 % (0.2-1.0) L 04/16/17 04:50 Neut # 6.7 x10^3/uL (2.2-4.8) H 04/16/17 04:50 Lymph # 0.7 X10^3/uL (1.3-2.9) L 04/16/17 04:50 [place] # 26.1 x10^3/uL (0.3-0.8) H 04/16/17 04:50 Eos # 0.2 x10^3/uL (0.0-0.2) 04/16/17 04:50 Baso # 0.0 X10^3/uL (0.0-0.1) 04/16/17 04:50 Absolute Nucleated RBC 0.6 /100WBC 04/16/17 04:50 Total Counted 100 04/16/17 04:50 Neutrophils % (Manual) 19 % (39-76) L 04/16/17 04:50 Lymphocytes % (Manual) 23 % (13-43) 04/16/17 04:50 Monocytes % (Manual) 58 % (4-9) H 04/16/17 04:50 Eosinophils % (Manual) 1 % (0-6) 04/13/17 18:55 Atypical Lymphocytes 72 04/14/17 05:50 Plt Morphology Comment Normal (NORMAL) 04/16/17 04:50 RBC Morphology Normal (NORMAL) 04/16/17 04:50 Sodium 139 mmol/L (136-145) 04/16/17 04:50 Corrected Sodium 140 mmol/L (136-145) 04/16/17 04:50 Potassium 3.7 mmol/L (3.5-5.1) 04/16/17 04:50 Chloride 103 mmol/L (98-107) 04/16/17 04:50 Carbon Dioxide 27.6 mmol/L (21-32) 04/16/17 04:50 BUN 17 mg/dL (7-18) 04/16/17 04:50 Creatinine 1.09 mg/dL (0.55-1.02) H 04/16/17 04:50 Est GFR (MDRD) Af Amer > 60 (>60) 04/16/17 04:50 Est GFR (MDRD) Non-Af 52 (>60) L 04/16/17 04:50 Glucose 143 mg/dL (65-99) H 04/16/17 04:50 POC Glucose (mg/dL) 170 mg/dL (65-99) H 04/16/17 11:38 Calcium 8.2 mg/dL (8.5-10.1) L 04/16/17 04:50 Corrected Calcium 9.5 mg/dL (8.5-10.1) 04/16/17 04:50 Total Bilirubin 0.50 mg/dL (0.2-1.0) 04/16/17 04:50 AST 30 Units/L (15-37) 04/16/17 04:50 ALT 13 Units/L (12-78) 04/16/17 04:50 Alkaline Phosphatase 106 Units/L (46-116) 04/16/17 04:50 C-Reactive Protein 15.80 mg/L (0-3.0) H 04/13/17 18:55 Total Protein 5.3 g/dL (6.4-8.2) L 04/16/17 04:50 Albumin 2.4 g/dL (3.4-5.0) L 04/16/17 04:50 Globulin 2.9 g/dL (2.5-4.5) 04/16/17 04:50 Albumin/Globulin Ratio 0.8 Ratio (1.1-2.1) L 04/16/17 04:50 Prealbumin 11.0 mg/dL (18-35.7) L 04/14/17 05:50 Specimen Type Catherized urine 04/14/17 05:33 Urine Color Yellow (YELLOW) 04/14/17 05:33 Urine Appearance Slightly hazy (CLEAR) 04/14/17 05:33 Urine pH 5.0 (5.0 - 8.0) 04/14/17 05:33 Ur Specific [place] 1.020 (1.000-1.030) 04/14/17 05:33 Urine Protein 2+ (NEGATIVE) 04/14/17 05:33 Urine Glucose (UA) Negative (NEGATIVE) 04/14/17 05:33 Urine Ketones Negative (NEGATIVE) 04/14/17 05:33 Urine Occult Blood 2+ (NEGATIVE) 04/14/17 05:33 Urine Nitrite Negative (NEGATIVE) 04/14/17 05:33 Urine Bilirubin Negative (NEGATIVE) 04/14/17 05:33 Urine Urobilinogen Normal (NORMAL) 04/14/17 05:33 Ur Leukocyte Esterase 3+ (NEGATIVE) 04/14/17 05:33 Urine RBC 10-12 /HPF (NEGATIVE) 04/14/17 05:33 Urine WBC Tntc /HPF (NEGATIVE) 04/14/17 05:33 Ur Squamous Epith Cells Rare /HPF (NEGATIVE) 04/14/17 05:33 Amorphous Sediment 1+ /HPF (NEGATIVE) 04/14/17 05:33 Urine Bacteria Trace /HPF (NEGATIVE) 04/14/17 05:33 Ur Culture Indicated? Yes/culture set up 04/14/17 05:33 Stool Description <1g,unformed,green 04/14/17 18:50 Stl Occult Blood (IFOB) Negative (NEGATIVE) 04/14/17 18:50 - Plan (1) LLL pneumonia Status: Acute Qualifiers: Pneumonia type: due to unspecified organism Qualified Code(s): J18.1 - Lobar pneumonia, unspecified organism Plan: pneumonia protocol, fortaz 1gm iv q8h, levaquin 750mg iv daily, supplemental oxygen, duonebs, continue to monitor (2) Urinary tract infection Status: Acute Qualifiers: Urinary tract infection type: acute cystitis Hematuria presence: with hematuria Qualified Code(s): N30.01 - Acute cystitis with hematuria Plan: rocephin 1500mg iv daily, continue to monitor (3) Protein deficiency Status: Acute Plan: albumin 25% iv daily, tpn at 50ml/hr, megace 40mg po bid, continue to monitor
--- NOTE | 2017-04-16 23:34 | PCM.PROG ---
Progress Note - Progress Note for Day of Date: 04/15/17 - Subjective Subjective: WAS ADMITTED FOR LLL PNEUMONIA. TODAY, SHE IS ALERT AND ORIENTED, SITTING UP IN BED ON MORNING ROUNDS. TODAY, SHE CONTINUES WITH COMPLAINTS OF WEAKNESS, PERSISTENT, PRODUCTIVE COUGH, AND SHORTNESS OF BREATH. ON EXAMINATION, HEART IS REGULAR IN RATE AND RHYTHM. BILATERAL LUNGS ARE NOTED WITH COURSE WHEEZING AND RHONCHI THROUGOUT. SHE IS CURRENTLY UTILIZING OXYGEN VIA NASAL CANNULA AT 2L/MIN. ABDOMEN IS ROUND, SOFT, AND CONTINUES WITH DIFFUSE TENDERNESS ON PALPATION. BILATERAL LOWER EXTREMITIES CONTINUE WITH 1+ PITTING EDEMA. THERE IS NORMAL RANGE OF MOTION NOTED TO ALL EXTREMITIES. HER VITALS THIS MORNING ARE 98.0-100-20-91%-186/86. LABS WERE OBTAINED THIS MORNING. ABNORMAL LAB VALUES INCLUDE THE FOLLOWING: WBC DECREASED FROM 38.5 TO 33.6, RBC 3.19, HGB 9.6, HCT 29.5, PLT COUNT 133, CREATININE 1.19, GFR 47, GLUCOSE 164, CALCIUM 8.0, ALK PHOS 117, TOTAL PROTEIN 5.2, ALBUMIN 2.4. WE OBTAINED A URINALYSIS THIS MORNING. IT REPORTED WBC TNTC, RBC 10-12, LEUKOCYTES 3+, BACTERIA TRACE, PROTEIN 2+, OCCULT BLOOD 2+. URINE CULTURE AND SPUTUM CULTURES ARE PENDING. A PERIPHERAL SMEAR IS ALSO PENDING. WE OBTAINED A CHEST XRAY TODAY. IT REPORTED RADIOGRAPHIC FINDINGS FAVORED TO REPRESENT A BACKGROUND OF INTERSTITIAL EDEMA LIKELY IN THE SETTING OF CONGESTIVE HEART FAILURE WITH OVERALL IMPROVED AERATION OF THE LEFT LOWER LUNG BUT WITH PROGRESSIVE FLUID AND CONSOLIDATION IN THE RIGHT LOWER LOBE FOR WHICH SUPERIMPOSED PNEUMONIA IS NOT EXCLUDED. TODAY, WE WILL CONTINUE CURRENT PLAN OF CARE. WE PLAN TO FOLLOW UP WITH AM LABS AND CHEST XRAY AND CONTINUE TO MONITOR PATIENT. - Past Medical Family Social History Past Med/Fam/Surg Hx: No changes since H&P Allergies: Allergies No Known Drug Allergies Allergy (Verified 04/13/17 18:06) - Review of Systems ROS: No change since H&P - Vital Signs and I&O's Vital Signs: Temperature 98.6 F Pulse Rate [Left Radial] 99 Pulse Rate 94 Respiratory Rate 24 Blood Pressure [Right Arm] 163/74 Blood Pressure 138/80 O2 Sat by Pulse Oximetry 94 Intake and Output: Intake & Output 04/14/17 04/15/17 04/16/17 04/17/17 11:59 11:59 11:59 11:59 Intake Total 605 2810 800 1410 Output Total 200 600 500 Balance 605 2610 200 910 - Physical Exam Oriented: Normal Eyes: Normal. negative: Blurred Vision, Diplopia, Discharge, Pain, Redness, Photophobia, Other Ear: Normal. negative: Right, Left, Swelling, Ecchymosis, Hemotypanum, Abrasion , Laceration Nose: Normal. negative: Injected, Discharge, Blood, Other Throat: Normal. negative: Tonsillar Hypertrophy, Red, Exudate, Dry, Other Respiratory: Right, Left, Generalized, Wheezes, Rhonchi Cardiovascular: Edema (3+ pitting edema to bilateral lower extremities ) : Normal. negative: Dysuria, Hematuria, Frequency, Discharge, Testicular Pain , Bleeding, , Other Auscultation: Bowel Sounds: Normal. negative: Bruit, Absent, Increased, Decreased, High Pitched, Other Palpation: Normal Tenderness: Normal. negative: Diffuse, RUQ, RLQ, LUQ, LLQ, Epigastric, Periumbilical, Suprapubic, Mild, Moderate, Severe, Rebound, Guarding, Rigidity, Other Skin: Normal. negative: Decreased Turgur, Rash, Papular, Macular, Maculopapular , Vesicular, Pustular, Petechial, Red, Tender, Hot, Diaphoresis, Wound, Bruising , Ecchymosis, Other Musculoskeletal: Normal. negative: Right, Left, Shoulder, Clavicle, Arm, Elbow , Forearm, Wrist, Hand, Hip, Thigh, Knee, Leg, Ankle, Foot, Back:Thoracic, Back: Lumbar, Back:Midline, Back:Paraspinous, Pelvis, Swelling, Tender, Deformity, Pulse Deficit, Motor Deficit, Sensory Deficit, Instability, Crepitance Psychiatric: Normal Mood Description: Calm Affect: Normal Speech Pattern: Clear, Appropriate - Laboratory and Diagnostics Result Diagrams: 04/16/17 04:50 04/16/17 04:50 Labs: 04/14/17 05:33 Urine,Catheterized Urine Culture - Final 04/13/17 23:49 Sputum - Expectorated Sputum Sputum Culture - Final 04/13/17 23:49 Sputum - Expectorated Sputum - Final Laboratory WBC 33.7 X10^3/uL (3.6-10.0) H* 04/16/17 04:50 RBC 3.07 X10^6/uL (3.5-5.4) L 04/16/17 04:50 Hgb 9.1 g/dL (12.0-16.0) L 04/16/17 04:50 Hct 27.9 % (36.0-47.0) L 04/16/17 04:50 MCV 90.9 fL (80.0-100.0) 04/16/17 04:50 MCH 29.6 pg (27.0-34.0) 04/16/17 04:50 MCHC 32.6 g/dL (33.0-35.0) L 04/16/17 04:50 RDW 16.5 % (11.6-16.5) 04/16/17 04:50 Plt Count 123 X10^3/uL (150.0-450.0) L 04/16/17 04:50 Plt Count Comment Adequate (ADEQUATE) 04/16/17 04:50 MPV 9.4 fL (7.4-11.0) 04/16/17 04:50 Neut % 20.0 % (42.0-75.0) L 04/16/17 04:50 Lymph % 2.1 % (21.0-51.0) L 04/16/17 04:50 [place] % 77.4 % (0.0-13.0) H 04/16/17 04:50 Eos % 0.5 % (0.9-2.9) L 04/16/17 04:50 Baso % 0 % (0.2-1.0) L 04/16/17 04:50 Neut # 6.7 x10^3/uL (2.2-4.8) H 04/16/17 04:50 Lymph # 0.7 X10^3/uL (1.3-2.9) L 04/16/17 04:50 [place] # 26.1 x10^3/uL (0.3-0.8) H 04/16/17 04:50 Eos # 0.2 x10^3/uL (0.0-0.2) 04/16/17 04:50 Baso # 0.0 X10^3/uL (0.0-0.1) 04/16/17 04:50 Absolute Nucleated RBC 0.6 /100WBC 04/16/17 04:50 Total Counted 100 04/16/17 04:50 Neutrophils % (Manual) 19 % (39-76) L 04/16/17 04:50 Lymphocytes % (Manual) 23 % (13-43) 04/16/17 04:50 Monocytes % (Manual) 58 % (4-9) H 04/16/17 04:50 Eosinophils % (Manual) 1 % (0-6) 04/13/17 18:55 Atypical Lymphocytes 72 04/14/17 05:50 Plt Morphology Comment Normal (NORMAL) 04/16/17 04:50 RBC Morphology Normal (NORMAL) 04/16/17 04:50 Sodium 139 mmol/L (136-145) 04/16/17 04:50 Corrected Sodium 140 mmol/L (136-145) 04/16/17 04:50 Potassium 3.7 mmol/L (3.5-5.1) 04/16/17 04:50 Chloride 103 mmol/L (98-107) 04/16/17 04:50 Carbon Dioxide 27.6 mmol/L (21-32) 04/16/17 04:50 BUN 17 mg/dL (7-18) 04/16/17 04:50 Creatinine 1.09 mg/dL (0.55-1.02) H 04/16/17 04:50 Est GFR (MDRD) Af Amer > 60 (>60) 04/16/17 04:50 Est GFR (MDRD) Non-Af 52 (>60) L 04/16/17 04:50 Glucose 143 mg/dL (65-99) H 04/16/17 04:50 POC Glucose (mg/dL) 175 mg/dL (65-99) H 04/16/17 21:31 Calcium 8.2 mg/dL (8.5-10.1) L 04/16/17 04:50 Corrected Calcium 9.5 mg/dL (8.5-10.1) 04/16/17 04:50 Total Bilirubin 0.50 mg/dL (0.2-1.0) 04/16/17 04:50 AST 30 Units/L (15-37) 04/16/17 04:50 ALT 13 Units/L (12-78) 04/16/17 04:50 Alkaline Phosphatase 106 Units/L (46-116) 04/16/17 04:50 C-Reactive Protein 15.80 mg/L (0-3.0) H 04/13/17 18:55 Total Protein 5.3 g/dL (6.4-8.2) L 04/16/17 04:50 Albumin 2.4 g/dL (3.4-5.0) L 04/16/17 04:50 Globulin 2.9 g/dL (2.5-4.5) 04/16/17 04:50 Albumin/Globulin Ratio 0.8 Ratio (1.1-2.1) L 04/16/17 04:50 Prealbumin 11.0 mg/dL (18-35.7) L 04/14/17 05:50 Specimen Type Catherized urine 04/14/17 05:33 Urine Color Yellow (YELLOW) 04/14/17 05:33 Urine Appearance Slightly hazy (CLEAR) 04/14/17 05:33 Urine pH 5.0 (5.0 - 8.0) 04/14/17 05:33 Ur Specific [place] 1.020 (1.000-1.030) 04/14/17 05:33 Urine Protein 2+ (NEGATIVE) 04/14/17 05:33 Urine Glucose (UA) Negative (NEGATIVE) 04/14/17 05:33 Urine Ketones Negative (NEGATIVE) 04/14/17 05:33 Urine Occult Blood 2+ (NEGATIVE) 04/14/17 05:33 Urine Nitrite Negative (NEGATIVE) 04/14/17 05:33 Urine Bilirubin Negative (NEGATIVE) 04/14/17 05:33 Urine Urobilinogen Normal (NORMAL) 04/14/17 05:33 Ur Leukocyte Esterase 3+ (NEGATIVE) 04/14/17 05:33 Urine RBC 10-12 /HPF (NEGATIVE) 04/14/17 05:33 Urine WBC Tntc /HPF (NEGATIVE) 04/14/17 05:33 Ur Squamous Epith Cells Rare /HPF (NEGATIVE) 04/14/17 05:33 Amorphous Sediment 1+ /HPF (NEGATIVE) 04/14/17 05:33 Urine Bacteria Trace /HPF (NEGATIVE) 04/14/17 05:33 Ur Culture Indicated? Yes/culture set up 04/14/17 05:33 Stool Description <1g,unformed,green 01/19/18 18:50 Stl Occult Blood (IFOB) Negative (NEGATIVE) 04/14/17 18:50 - Plan (1) LLL pneumonia Status: Acute Qualifiers: Pneumonia type: due to unspecified organism Qualified Code(s): J18.1 - Lobar pneumonia, unspecified organism Plan: pneumonia protocol, fortaz 1gm iv q8h, levaquin 750mg iv daily, supplemental oxygen, duonebs, continue to monitor (2) Urinary tract infection Status: Acute Qualifiers: Urinary tract infection type: acute cystitis Hematuria presence: with hematuria Qualified Code(s): N30.01 - Acute cystitis with hematuria Plan: rocephin 1500mg iv daily, continue to monitor (3) Protein deficiency Status: Acute Plan: albumin 25% iv daily, tpn at 50ml/hr, megace 40mg po bid, continue to monitor
[2017-04-17] MEDS: DUONEB 0.5 MG/3 MG NEB SCH ×3 (00:54→09:52)
[2017-04-17] MEDS: CLINIMIX 4.25 %/10 % 1,000 ML with MVI INJ (ADULT) 10 ML, TRACE ELEMENTS INJ 10 ML, DRU... IV SCH ×8 (05:18→09:53)
[2017-04-17] MEDS: FORTAZ or TAZICEF INJ 1 GM in NS 50 ML IV 50 ML IV SCH (06:16)
[2017-04-17 06:26] LABS: BASOPHILS # (AUTO) 0.3 X10^3/uL (0.0-0.1); EOSINOPHILS # (AUTO) 0.2 x10^3/uL (0.0-0.2); EOSINOPHILS % (AUTO) 0.7 % (0.9-2.9); HEMATOCRIT 28.6 % (36.0-47.0); HEMOGLOBIN 9.3 g/dL (12.0-16.0); LYMPHOCYTES % (AUTO) 54.7 % (21.0-51.0); MEAN CORPUSCULAR HEMOGLOBIN 29.5 pg (27.0-34.0); MEAN CORPUSCULAR HGB CONC 32.5 g/dL (33.0-35.0); MEAN CORPUSCULAR VOLUME 90.8 fL (80.0-100.0); MEAN PLATELET VOLUME 9.1 fL (7.4-11.0); MONOCYTES # (AUTO) 8.5 x10^3/uL (0.3-0.8); MONOCYTES % (AUTO) 23.3 % (0.0-13.0); NEUTROPHILS # (AUTO) 7.4 x10^3/uL (2.2-4.8); NEUTROPHILS % (AUTO) 20.3 % (42.0-75.0); PLATELET COUNT 120 X10^3/uL (150.0-450.0); RED BLOOD COUNT 3.15 X10^6/uL (3.5-5.4); RED CELL DISTRIBUTION WIDTH 16.7 % (11.6-16.5)
[2017-04-17 06:31] LABS: WHITE BLOOD COUNT 36.6 X10^3/uL (3.6-10.0)
[2017-04-17 06:32] LABS: ALANINE AMINOTRANSFERASE 13 Units/L (12-78); ALBUMIN 2.6 g/dL (3.4-5.0); ALKALINE PHOSPHATASE 112 Units/L (46-116); ASPARTATE AMINO TRANSFERASE 36 Units/L (15-37); BLOOD UREA NITROGEN 16 mg/dL (7-18); CALCIUM 8.4 mg/dL (8.5-10.1); CARBON DIOXIDE 26.1 mmol/L (21-32); CHLORIDE 103 mmol/L (98-107); COR CA(FOR HYPOALB) 9.5 mg/dL (8.5-10.1); COR NA(FOR HYPERGLY) 138 mmol/L (136-145); CREATININE 1.03 mg/dL (0.55-1.02); SODIUM 137 mmol/L (136-145); TOTAL PROTEIN 5.6 g/dL (6.4-8.2); eGFR BLACK RACES > 60 (>60); eGFR NON BLACK RACES 55 (>60)
--- NOTE | 2017-04-17 06:52 | RAD ---
HISTORY: Follow-up pneumonia Study: Chest AP portable Comparison: 04/15/2017, 04/16/2017 Findings: The patient is status post median sternotomy and CABG. The heart remains enlarged. Pulmonary venous c ongestion and interstitial prominence are unchanged suggestive of congestive heart failure. Bibasilar airspace disease is present consistent either with pneumonia or asymmetric alveolar edema. No defini te pleural effusions are identified. The bony thorax is unremarkable. IMPRESSION: Cardiomegaly with congestive heart failure unchanged Bibasilar densities representing either infiltrates or asymmetric edema, unchanged Reported By:
[2017-04-17 08:02] LABS: PLATELET MORPHOLOGY COMMENT NORMAL (NORMAL)
[2017-04-17 08:03] LABS: ANISOCYTOSIS SLIGHT; HYPOCHROMASIA SLIGHT
[2017-04-17] MEDS: ALBUMIN HUMAN 25%- 100ML 100 ML IV SCH (08:47)
[2017-04-17] MEDS: PROzac PO SCH (08:48)
[2017-04-17] MEDS: HEMOCYTE-PLUS PO SCH (08:48)
[2017-04-17] MEDS: XANAX PO SCH (08:48)
[2017-04-17] MEDS: LOPRESSOR TAB 25 MG PO SCH (08:48)
[2017-04-17] MEDS: FOLIC ACID TAB 1 MG PO SCH (08:48)
[2017-04-17] MEDS: ASPIRIN EC 81 MG PO SCH (08:48)
[2017-04-17] MEDS: MEGACE PO SCH (08:48)
[2017-04-17] MEDS: SYNTHROID 25 mcg TAB PO SCH (08:48)
[2017-04-17] MEDS: ROBITUSSIN DM PO SCH (08:49)
[2017-04-17] MEDS: LEVAQUIN PREMIX IV 750 MG 750 MG/150 ML BAG IV SCH (09:54)
[2017-04-17 13:01] VITALS: BP 182/79
== END 2017-04-17 13:05 | disposition home health service (06) | DRG 194 ==
LOC: ER 18:18 → MED/SURG 21:23
PROVIDERS: ADMIT Internal Medicine; ATTEND Internal Medicine
DX: J18.8 Other pneumonia, unspecified organism (principal); N30.01 Acute cystitis with hematuria; R53.1 Weakness; R11.2 Nausea with vomiting, unspecified; I25.10 Atherosclerotic heart disease of native coronary artery without angina pectoris; E78.2 Mixed hyperlipidemia; I10 Essential (primary) hypertension; E11.65 Type 2 diabetes mellitus with hyperglycemia; E03.8 Other specified hypothyroidism; F41.8 Other specified anxiety disorders; F32.89 Other specified depressive episodes; R06.02 Shortness of breath; E46 Unspecified protein-calorie malnutrition; R60.1 Generalized edema
CPT/HCPCS: 36415; 70360; 71045; 80048; 80053; 81001; 82270; 84134; 85025; 85060; 86140; 87070; 87086; 87205; 94640; 94760; 96365; 96374; 96375; 99283; 99284; A4222; B4189; P9047; S0179; J0696; J0713; J1815; J1956; J2060; J2405; J3490; J7620

== ENCOUNTER 2017-04-23 15:28 | Inpatient (IN) | payer OTHER ==
[2017-04-23] MEDS ORDERED: NS 1000 ML 1,000 ML ONE (15:43)
[2017-04-23] MEDS ORDERED: NS 1000 ML 1,000 ML IV ONE (15:57)
[2017-04-23 16:02] LABS: ABG BASE EXCESS 6.4 mmol/L (-2.0-2.0)
[2017-04-23 16:03] LABS: ABG HCO3 33.1 mmol/L (22-26)
[2017-04-23 16:04] LABS: ABG ALLEN TEST POS
[2017-04-23 16:10] LABS: BILIRUBIN,URINE NEGATIVE (NEGATIVE); BLOOD/HEMOGLOBIN,URINE 2+ (NEGATIVE); GLUCOSE, URINE NEGATIVE (NEGATIVE); KETONES,URINE NEGATIVE (NEGATIVE); LEUKOCYTE ESTERASE ,URINE 3+ (NEGATIVE); NITRITES,URINE NEGATIVE (NEGATIVE); PROTEIN,URINE 3+ (NEGATIVE); UROBILINOGEN,URINE NORMAL (NORMAL)
[2017-04-23 16:13] LABS: EOSINOPHILS # (AUTO) 0.1 x10^3/uL (0.0-0.2); EOSINOPHILS % (AUTO) 0.2 % (0.9-2.9); HEMOGLOBIN 9.8 g/dL (12.0-16.0); MEAN CORPUSCULAR VOLUME 93.8 fL (80.0-100.0); RED BLOOD COUNT 3.32 X10^6/uL (3.5-5.4)
[2017-04-23 16:19] LABS: APPEARANCE,URINE HAZY (CLEAR); BACTERIA,URINE 1+ /HPF (NEGATIVE); COLOR,URINE YELLOW (YELLOW); RBC,URINE 0-5 /HPF (NEGATIVE); SQUAMOUS EPITHELIAL CELL,UR NEGATIVE /HPF (NEGATIVE)
[2017-04-23 16:20] LABS: BASOPHILS % (AUTO) 0.1 % (0.2-1.0); HEMATOCRIT 31.1 % (36.0-47.0); LYMPHOCYTES # (AUTO) 1.1 X10^3/uL (1.3-2.9); LYMPHOCYTES % (AUTO) 1.7 % (21.0-51.0); MEAN CORPUSCULAR HEMOGLOBIN 29.5 pg (27.0-34.0); MEAN CORPUSCULAR HGB CONC 31.5 g/dL (33.0-35.0); MEAN PLATELET VOLUME 9.4 fL (7.4-11.0); MONOCYTES # (AUTO) 47.2 x10^3/uL (0.3-0.8); MONOCYTES % (AUTO) 76.4 % (0.0-13.0); NEUTROPHILS # (AUTO) 13.3 x10^3/uL (2.2-4.8); NEUTROPHILS % (AUTO) 21.6 % (42.0-75.0); PLATELET COUNT 185 X10^3/uL (150.0-450.0)
[2017-04-23 16:23] LABS: WHITE BLOOD COUNT 61.7 X10^3/uL (3.6-10.0)
[2017-04-23 16:28] LABS: BLOOD UREA NITROGEN 22 mg/dL (7-18); CALCIUM 9.1 mg/dL (8.5-10.1); CARBON DIOXIDE 33.7 mmol/L (21-32); CHLORIDE 102 mmol/L (98-107); COR NA(FOR HYPERGLY) 142 mmol/L (136-145); CREATININE 0.86 mg/dL (0.55-1.02); SODIUM 139 mmol/L (136-145); TROPONIN I 0.02 ng/mL (0-1.5); eGFR BLACK RACES > 60 (>60); eGFR NON BLACK RACES > 60 (>60)
[2017-04-23 16:32] LABS: ALANINE AMINOTRANSFERASE 21 Units/L (12-78); ALKALINE PHOSPHATASE 165 Units/L (46-116); ASPARTATE AMINO TRANSFERASE 43 Units/L (15-37); COR CA(FOR HYPOALB) 9.9 mg/dL (8.5-10.1); CREATINE KINASE 103 Units/L (26-192); CREATINE KINASE MB < 1.0 ng/mL (0-4.0); TOTAL PROTEIN 6.8 g/dL (6.4-8.2)
--- NOTE | 2017-04-23 16:34 | RAD ---
Examination: Portable AP chest History: SOB, unresponsive Comparison 04/17/2017 Findings: Continued normal heart size with postsurgical findings. Diffuse airspace disease in both lo wer lobes with probable pleural effusions. No pneumothorax seen. Impression: Bilateral lower lobe densities consistent with pneumonia or atelectasis, and pleural effu sions. Follow-up indicated. Reported By:
--- NOTE | 2017-04-23 16:38 | CT ---
HISTORY: Altered mental status Study: CT brain without contrast Comparison: None Technique: Multiple axial images of the brain were obtained from the skull base to the vertex without administra tion of IV contrast. Findings: No acute intraparenchymal hemorrhage or mass can be identified. No extra-axial fluid collections are seen. No alteration in the attenuation of the brain parenchyma can be identified to suggest acute o r subacute ischemic change. The ventricular system is symmetric and nondilated. There is chronic pe riventricular white matter disease observed and age-appropriate generalized atrophy. IMPRESSION: 1. No acute intracranial process can be identified. 2. 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 3. Age-appropriate atrophic changes are seen. Reported By:
[2017-04-23 17:12] LABS: PLATELET MORPHOLOGY COMMENT NORMAL (NORMAL)
[2017-04-23 17:18] LABS: ANISOCYTOSIS 1+; HYPOCHROMASIA SLIGHT; MICROCYTOSIS SLIGHT
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
[2017-04-23] MEDS: NS 1000 ML 1,000 ML IV SCH (19:30)
[2017-04-24 01:17] VITALS: BMI 24.9
[2017-04-24] MEDS: NS 1000 ML 1,000 ML IV SCH ×3 (05:20→21:02)
[2017-04-24 06:51] LABS: ALANINE AMINOTRANSFERASE 23 Units/L (12-78); ALBUMIN 2.5 g/dL (3.4-5.0); ALKALINE PHOSPHATASE 130 Units/L (46-116); ASPARTATE AMINO TRANSFERASE 74 Units/L (15-37); BLOOD UREA NITROGEN 24 mg/dL (7-18); CALCIUM 8.4 mg/dL (8.5-10.1); CHLORIDE 105 mmol/L (98-107); COR CA(FOR HYPOALB) 9.6 mg/dL (8.5-10.1); COR NA(FOR HYPERGLY) 142 mmol/L (136-145); CREATININE 0.88 mg/dL (0.55-1.02); SODIUM 141 mmol/L (136-145); TOTAL PROTEIN 5.7 g/dL (6.4-8.2); eGFR BLACK RACES > 60 (>60); eGFR NON BLACK RACES > 60 (>60)
[2017-04-24 07:08] LABS: BASOPHILS % (AUTO) 0 % (0.2-1.0); EOSINOPHILS # (AUTO) 0.1 x10^3/uL (0.0-0.2); EOSINOPHILS % (AUTO) 0.2 % (0.9-2.9); HEMATOCRIT 26.8 % (36.0-47.0); HEMOGLOBIN 8.5 g/dL (12.0-16.0); LYMPHOCYTES # (AUTO) 2.3 X10^3/uL (1.3-2.9); LYMPHOCYTES % (AUTO) 4.3 % (21.0-51.0); MEAN CORPUSCULAR HEMOGLOBIN 29.6 pg (27.0-34.0); MEAN CORPUSCULAR HGB CONC 31.8 g/dL (33.0-35.0); MEAN CORPUSCULAR VOLUME 93.1 fL (80.0-100.0); MEAN PLATELET VOLUME 9.3 fL (7.4-11.0); MONOCYTES # (AUTO) 41.1 x10^3/uL (0.3-0.8); MONOCYTES % (AUTO) 77.8 % (0.0-13.0); NEUTROPHILS # (AUTO) 9.3 x10^3/uL (2.2-4.8); NEUTROPHILS % (AUTO) 17.7 % (42.0-75.0); PLATELET COUNT 155 X10^3/uL (150.0-450.0); RED BLOOD COUNT 2.88 X10^6/uL (3.5-5.4); RED CELL DISTRIBUTION WIDTH 17.4 % (11.6-16.5)
[2017-04-24 07:31] LABS: BAND NEUTROPHILS % 2 % (0-10)
[2017-04-24 07:32] LABS: PLATELET MORPHOLOGY COMMENT NORMAL (NORMAL)
[2017-04-24 07:36] LABS: WHITE BLOOD COUNT 52.9 X10^3/uL (3.6-10.0)
[2017-04-24] MEDS: DUONEB 0.5 MG/3 MG NEB SCH ×4 (09:00→22:10)
--- NOTE | 2017-04-24 11:40 | RAD ---
HISTORY: Shortness of breath and altered mental status Study: Single view of the chest. Comparison: 04/23/2017 Findings: The cardiomediastinal silhouette is normal. Redemonstration of cardiomegaly and small left pleural ef fusion. Osseous structures demonstrate no acute abnormality. IMPRESSION: 1. Redemonstration of cardiomegaly and small left pleural effusion. Reported By:
[2017-04-24] MEDS: LEVAQUIN PREMIX IV 750 MG 750 MG/150 ML BAG IV SCH (11:58)
[2017-04-24] MEDS: ROBITUSSIN DM PO SCH ×4 (11:58→21:03)
[2017-04-24] MEDS ORDERED: SALINE 3% 15 ML NEB TX ONE (12:01)
[2017-04-24] MEDS: FORTAZ or TAZICEF INJ 1 GM in NS 100 ML IV + SPIKE MINIBAG* 100 ML IV SCH ×3 (13:30→20:59)
[2017-04-24] MEDS ORDERED: DOCUSATE SODIUM 250 MG PO SCH (16:00)
[2017-04-24] MEDS ORDERED: VITAMIN D (1.25MG) PO SCH (16:00)
[2017-04-24] MEDS: HEMOCYTE-PLUS PO SCH (17:35)
[2017-04-24] MEDS: MEGACE PO SCH ×2 (17:35→21:01)
[2017-04-24] MEDS: FOLIC ACID TAB 1 MG PO SCH (17:36)
[2017-04-24] MEDS: PROzac PO SCH (17:36)
[2017-04-24] MEDS: LOPRESSOR TAB 25 MG PO SCH ×2 (17:36→21:01)
[2017-04-24] MEDS: SYNTHROID 25 mcg TAB PO SCH (17:36)
[2017-04-24] MEDS: ASPIRIN EC 81 MG PO SCH (17:36)
[2017-04-24] MEDS: LIPITOR TAB 40 MG PO SCH (21:00)
[2017-04-24] MEDS: XANAX PO SCH (21:00)
[2017-04-24] MEDS: TUSSIONEX PENNKINETIC SUSP PO PRN (21:00)
[2017-04-24] MEDS: NEURONTIN CAP 100 MG PO PRN (21:00)
[2017-04-24] MEDS ORDERED: LANTUS SC SCH (21:00)
[2017-04-25] MEDS: DUONEB 0.5 MG/3 MG NEB SCH ×6 (01:09→21:10)
[2017-04-25] MEDS: FORTAZ or TAZICEF INJ 1 GM in NS 100 ML IV + SPIKE MINIBAG* 100 ML IV SCH ×3 (05:50→21:44)
[2017-04-25 06:42] LABS: ALANINE AMINOTRANSFERASE 23 Units/L (12-78); ALBUMIN 2.2 g/dL (3.4-5.0); ALKALINE PHOSPHATASE 119 Units/L (46-116); ASPARTATE AMINO TRANSFERASE 61 Units/L (15-37); BLOOD UREA NITROGEN 23 mg/dL (7-18); CALCIUM 7.7 mg/dL (8.5-10.1); CARBON DIOXIDE 29.9 mmol/L (21-32); CHLORIDE 105 mmol/L (98-107); COR CA(FOR HYPOALB) 9.1 mg/dL (8.5-10.1); CREATININE 0.95 mg/dL (0.55-1.02); SODIUM 142 mmol/L (136-145); TOTAL PROTEIN 5.2 g/dL (6.4-8.2); eGFR BLACK RACES > 60 (>60); eGFR NON BLACK RACES > 60 (>60)
[2017-04-25 06:46] LABS: BASOPHILS % (AUTO) 0 % (0.2-1.0); EOSINOPHILS # (AUTO) 0.1 x10^3/uL (0.0-0.2); EOSINOPHILS % (AUTO) 0.2 % (0.9-2.9); HEMATOCRIT 26.7 % (36.0-47.0); HEMOGLOBIN 8.6 g/dL (12.0-16.0); LYMPHOCYTES # (AUTO) 1.2 X10^3/uL (1.3-2.9); LYMPHOCYTES % (AUTO) 2.6 % (21.0-51.0); MEAN CORPUSCULAR HEMOGLOBIN 29.8 pg (27.0-34.0); MEAN CORPUSCULAR HGB CONC 32.4 g/dL (33.0-35.0); MEAN CORPUSCULAR VOLUME 92.2 fL (80.0-100.0); MEAN PLATELET VOLUME 9.2 fL (7.4-11.0); MONOCYTES # (AUTO) 37.1 x10^3/uL (0.3-0.8); MONOCYTES % (AUTO) 78.3 % (0.0-13.0); NEUTROPHILS % (AUTO) 18.9 % (42.0-75.0); PLATELET COUNT 143 X10^3/uL (150.0-450.0); RED BLOOD COUNT 2.89 X10^6/uL (3.5-5.4); RED CELL DISTRIBUTION WIDTH 17.2 % (11.6-16.5)
--- NOTE | 2017-04-25 06:53 | RAD ---
HISTORY: Shortness of breath Study: Chest AP portable Comparison: 04/24/2017 Findings: The patient is status post median sternotomy and CABG. The heart is upper limits normal in size. The phani are prominent and indistinct and the interstitium is prominent suggestive of congestive heart fa ilure. Perihilar subsegmental atelectasis is present on the right. Haziness at the lung bases may ind icate bilateral pleural effusions. IMPRESSION: Findings suggestive of congestive heart failure likely with bilateral small pleural effusions Perihilar subsegmental atelectasis on the right Reported By:
[2017-04-25 07:07] LABS: WHITE BLOOD COUNT 47.4 X10^3/uL (3.6-10.0)
[2017-04-25 07:35] LABS: PLATELET MORPHOLOGY COMMENT NORMAL (NORMAL)
[2017-04-25] MEDS: ROBITUSSIN DM PO SCH ×4 (08:57→21:46)
[2017-04-25] MEDS: LEVAQUIN PREMIX IV 750 MG 750 MG/150 ML BAG IV SCH (08:57)
[2017-04-25] MEDS: MEGACE PO SCH ×2 (08:59→21:45)
[2017-04-25] MEDS: LOPRESSOR TAB 25 MG PO SCH ×2 (08:59→21:45)
[2017-04-25] MEDS: ASPIRIN EC 81 MG PO SCH (08:59)
[2017-04-25] MEDS: HEMOCYTE-PLUS PO SCH (08:59)
[2017-04-25] MEDS: PROzac PO SCH (09:00)
[2017-04-25] MEDS: SYNTHROID 25 mcg TAB PO SCH (09:00)
[2017-04-25] MEDS: XANAX PO SCH ×2 (09:00→21:45)
[2017-04-25] MEDS: FOLIC ACID TAB 1 MG PO SCH (09:00)
[2017-04-25] MEDS: NS 1000 ML 1,000 ML IV SCH ×3 (10:38→23:00)
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
[2017-04-25] MEDS: LIPITOR TAB 40 MG PO SCH (21:45)
[2017-04-25] MEDS: NEURONTIN CAP 100 MG PO PRN (21:46)
[2017-04-26] MEDS: COLACE CAP 100 MG PO SCH ×2 (01:00→21:03)
[2017-04-26] MEDS: DUONEB 0.5 MG/3 MG NEB SCH ×6 (01:21→20:18)
[2017-04-26] MEDS: FORTAZ or TAZICEF INJ 1 GM in NS 100 ML IV + SPIKE MINIBAG* 100 ML IV SCH (05:45)
--- NOTE | 2017-04-26 07:12 | RAD ---
HISTORY: Shortness of breath Study: Chest AP portable Comparison: 04/25/2017 Findings: The patient is status post median sternotomy and CABG. The heart is upper limits normal in size. The phani remain prominent and indistinct and the interstitium is prominent suggestive of congestive heart failure. Perihilar subsegmental atelectasis is still present on the right. Bilateral pleural effusio ns are likely present and unchanged. The bony thorax is unremarkable. IMPRESSION: Findings still suggestive of congestive heart failure in the form of interstitial edema Bilateral pleural effusions, stable Reported By:
[2017-04-26 07:20] LABS: ALANINE AMINOTRANSFERASE 19 Units/L (12-78); ALKALINE PHOSPHATASE 115 Units/L (46-116); ASPARTATE AMINO TRANSFERASE 52 Units/L (15-37); BLOOD UREA NITROGEN 21 mg/dL (7-18); CALCIUM 7.7 mg/dL (8.5-10.1); CARBON DIOXIDE 28.6 mmol/L (21-32); CHLORIDE 107 mmol/L (98-107); COR CA(FOR HYPOALB) 9.3 mg/dL (8.5-10.1); CREATININE 0.93 mg/dL (0.55-1.02); SODIUM 141 mmol/L (136-145); eGFR BLACK RACES > 60 (>60); eGFR NON BLACK RACES > 60 (>60)
[2017-04-26 07:22] LABS: BASOPHILS % (AUTO) 0 % (0.2-1.0); EOSINOPHILS # (AUTO) 0.2 x10^3/uL (0.0-0.2); EOSINOPHILS % (AUTO) 0.3 % (0.9-2.9); HEMOGLOBIN 8.6 g/dL (12.0-16.0); LYMPHOCYTES # (AUTO) 0.1 X10^3/uL (1.3-2.9); LYMPHOCYTES % (AUTO) 0.2 % (21.0-51.0); MEAN CORPUSCULAR HEMOGLOBIN 29.6 pg (27.0-34.0); MEAN CORPUSCULAR HGB CONC 31.7 g/dL (33.0-35.0); MEAN CORPUSCULAR VOLUME 93.4 fL (80.0-100.0); MEAN PLATELET VOLUME 9.2 fL (7.4-11.0); MONOCYTES # (AUTO) 37.1 x10^3/uL (0.3-0.8); MONOCYTES % (AUTO) 78.9 % (0.0-13.0); NEUTROPHILS # (AUTO) 9.7 x10^3/uL (2.2-4.8); NEUTROPHILS % (AUTO) 20.6 % (42.0-75.0); PLATELET COUNT 138 X10^3/uL (150.0-450.0); RED BLOOD COUNT 2.89 X10^6/uL (3.5-5.4); RED CELL DISTRIBUTION WIDTH 17.2 % (11.6-16.5)
[2017-04-26] MEDS: NS 1000 ML 1,000 ML IV SCH ×2 (08:44→12:04)
[2017-04-26] MEDS: LEVAQUIN PREMIX IV 750 MG 750 MG/150 ML BAG IV SCH (08:45)
[2017-04-26] MEDS: ROBITUSSIN DM PO SCH ×4 (08:46→21:05)
[2017-04-26] MEDS: ASPIRIN EC 81 MG PO SCH (08:46)
[2017-04-26] MEDS: SYNTHROID 25 mcg TAB PO SCH (08:47)
[2017-04-26] MEDS: MEGACE PO SCH ×2 (08:47→21:03)
[2017-04-26] MEDS: HEMOCYTE-PLUS PO SCH (08:47)
[2017-04-26] MEDS: FOLIC ACID TAB 1 MG PO SCH (08:47)
[2017-04-26] MEDS: PROzac PO SCH (08:47)
[2017-04-26] MEDS: XANAX PO SCH ×2 (08:47→21:03)
[2017-04-26] MEDS: LOPRESSOR TAB 25 MG PO SCH ×2 (08:47→21:03)
[2017-04-26] MEDS: MILK OF MAGNESIA PO SCH (08:49)
[2017-04-26] MEDS ORDERED: ZOFRAN INJ 4 MG VIAL IVP PRN (09:43)
[2017-04-26] MEDS: LASIX IVP SCH ×2 (10:16→21:03)
--- NOTE | 2017-04-26 12:35 | PCM.PROG ---
Progress Note - Progress Note for Day of Date: 04/24/17 - Subjective Subjective: WAS ADMITTED FOR LEUKOCYTOSIS, PNEUMONIA, A URINARY TRACT INFECTION, AND ALTERED MENTAL STATUS. TODAY, SHE IS ALERT AND ORIENTED, LYING IN BED ON MORNING ROUNDS. PATIENTS FAMILY IS AT BEDSIDE. SHE CONTINUES WITH SHORTNESS OF BREATH, PRODUCTIVE COUGH, AND GENERALIZED WEAKNESS. ON EXAMINATION , HEART IS REGULAR IN RATE AND RHYTHM. BILATERAL LUNGS CONTINUE WITH SCATTERED WHEEZING AND RONCHI THROUGHOUT. ABDOMEN IS ROUND, SOFT, AND NOTED WITH MILD SUPRAPUBIC TENDERNESS. SHE CONTINUES WITH TRACE EDEMA TO BILATERAL LOWER EXTREMITIES. THERE IS NORMAL RANGE OF MOTION NOTED. HER VITALS THIS MORNING ARE 98.8-104-32-99%-175/78. LABS WERE OBTAINED. ABNORMAL LAB VALUES INCLUDE THE FOLLOWING: WBC DECREASED FROM 61.7 TO 52.9. RBC 2.88, HGB 8.5, HCT 26.8, BUN 21 , CALCIUM 7.7, AST 52, TOTAL PROTEIN 5.0, ALBUMIN 2.0. WE OBTAINED A CHEST XRAY TODAY. IT REPORTED REDEMONSTRATION OF CARDIOMEGALY AND SMALL LEFT PLEURAL EFFUSION. DUE TO A CHRONIC HIGH WBC, WE WILL CONSULT WITH , ONCOLOGY/ HEMATOLOGY. SHE CONTINUES TO RECEIVE IV ANTIBIOTICS AND RESPIRATORY TREATMENTS FOR UTI AND PNEUMONIA. WE WILL CANCEL THE BRAIN MRI THAT WAS ORDERED FOR TODAY, WE FEEL THAT THE ALTERED MENTAL STATUS WAS RELATED TO INFECTION. OTHERWISE, WE WILL CONTINUE WITH CURRENT PLAN OF CARE. WE PLAN TO FOLLOW UP WITH AM LABS AND CHEST XRAY AND CONTINUE TO MONITOR PATIENT. - Past Medical Family Social History Past Med/Fam/Surg Hx: No changes since H&P Allergies: Allergies No Known Drug Allergies Allergy (Verified 04/13/17 18:06) - Review of Systems ROS: No change since H&P - Vital Signs and I&O's Vital Signs: Temperature 97.9 F Pulse Rate [Apical] 78 Pulse Rate 89 Respiratory Rate 19 Blood Pressure [Left Arm] 132/62 Blood Pressure [Right Arm] 132/63 Blood Pressure 134/93 O2 Sat by Pulse Oximetry 100 Intake and Output: Intake & Output 04/24/17 04/25/17 04/26/17 04/27/17 11:59 11:59 11:59 11:59 Intake Total 1111 2591 2928 Output Total 500 550 400 Balance 611 2041 2528 - Physical Exam Oriented: Normal Eyes: negative: Normal, Blurred Vision, Diplopia, Discharge, Pain, Redness, Photophobia, Other Ear: Normal. negative: Right, Left, Swelling, Ecchymosis, Hemotypanum, Abrasion , Laceration Nose: Normal Throat: Normal. negative: Tonsillar Hypertrophy, Red, Exudate, Dry, Other Respiratory: Right, Left, Generalized, Wheezes, Rhonchi Cardiovascular: Edema (bilateral lower extremity trace edema ) : Normal Auscultation: Bowel Sounds: Normal Palpation: Normal Tenderness: Suprapubic, Mild. negative: Rebound, Guarding, Rigidity Skin: Wound Musculoskeletal: Instability Psychiatric: Normal Mood Description: Calm Affect: Normal Speech Pattern: Clear, Appropriate - Laboratory and Diagnostics Result Diagrams: 04/26/17 05:35 04/26/17 05:35 Labs: 04/23/17 15:40 Blood Blood Culture - Preliminary 04/23/17 15:35 Blood Blood Culture - Preliminary 04/23/17 16:01 Urine,Catheterized Urine Culture - Final 04/23/17 17:00 Sputum - Expectorated Sputum Sputum Culture - Preliminary 04/23/17 17:00 Sputum - Expectorated Sputum - Final Laboratory WBC 47.0 X10^3/uL (3.6-10.0) H* 04/26/17 05:35 RBC 2.89 X10^6/uL (3.5-5.4) L 04/26/17 05:35 Hgb 8.6 g/dL (12.0-16.0) L 04/26/17 05:35 Hct 27.0 % (36.0-47.0) L 04/26/17 05:35 MCV 93.4 fL (80.0-100.0) 04/26/17 05:35 MCH 29.6 pg (27.0-34.0) 04/26/17 05:35 MCHC 31.7 g/dL (33.0-35.0) L 04/26/17 05:35 RDW 17.2 % (11.6-16.5) H 04/26/17 05:35 Plt Count 138 X10^3/uL (150.0-450.0) L 04/26/17 05:35 Plt Count Comment Adequate (ADEQUATE) 04/25/17 05:49 MPV 9.2 fL (7.4-11.0) 04/26/17 05:35 Neut % 20.6 % (42.0-75.0) L 04/26/17 05:35 Lymph % 0.2 % (21.0-51.0) L 04/26/17 05:35 [place] % 78.9 % (0.0-13.0) H 04/26/17 05:35 Eos % 0.3 % (0.9-2.9) L 04/26/17 05:35 Baso % 0 % (0.2-1.0) L 04/26/17 05:35 Neut # 9.7 x10^3/uL (2.2-4.8) H 04/26/17 05:35 Lymph # 0.1 X10^3/uL (1.3-2.9) L 04/26/17 05:35 [place] # 37.1 x10^3/uL (0.3-0.8) H 04/26/17 05:35 Eos # 0.2 x10^3/uL (0.0-0.2) 04/26/17 05:35 Baso # 0.0 X10^3/uL (0.0-0.1) 04/26/17 05:35 Absolute Nucleated RBC 0.7 /100WBC 04/26/17 05:35 Total Counted 100 04/25/17 05:49 Neutrophils % (Manual) 18 % (39-76) L 04/25/17 05:49 Band Neutrophils % 2 % (0-10) 04/24/17 05:45 Lymphocytes % (Manual) 12 % (13-43) L 04/25/17 05:49 Monocytes % (Manual) 4 % (4-9) 04/25/17 05:49 Atypical Lymphocytes 56 04/25/17 05:49 Blast Cells 10 (-1) H 04/25/17 05:49 Plt Morphology Comment Normal (NORMAL) 04/25/17 05:49 RBC Morphology Normal (NORMAL) 04/25/17 05:49 Hypochromasia Slight A 04/23/17 15:35 Anisocytosis 1+ A 04/23/17 15:35 Microcytosis Slight A 04/23/17 15:35 Macrocytosis Slight A 04/23/17 15:35 INR Target Range - 04/23/17 15:35 INR 1.04 (0.8-1.3) 04/23/17 15:35 PTT 30.3 SECONDS (22.9-36.5) 04/23/17 15:35 PTT Comment - 04/23/17 15:35 D-Dimer 843 ng/mL (0-400) H* 04/23/17 15:35 Sample Site Left radial 04/23/17 15:40 ABG pH 7.380 (7.35-7.45) 04/23/17 15:40 ABG pCO2 56.0 mmHg (35.0-45.0) H* 04/23/17 15:40 ABG pO2 86.0 mmHg (80.0-100.0) 04/23/17 15:40 ABG HCO3 33.1 mmol/L (22-26) H* 04/23/17 15:40 ABG O2 Saturation 96.0 % (90-100) 04/23/17 15:40 ABG Base Excess 6.4 mmol/L (-2.0-2.0) H 04/23/17 15:40 Bar Test Pos 04/23/17 15:40 A-a Gradient 72.0 mmHg 04/23/17 15:40 FiO2 32.000 04/23/17 15:40 Blood Gas Comments [place] well mm 04/23/17 15:40 Sodium 141 mmol/L (136-145) 04/26/17 05:35 Corrected Sodium TNP 04/26/17 05:35 Potassium 3.8 mmol/L (3.5-5.1) 04/26/17 05:35 Chloride 107 mmol/L (98-107) 04/26/17 05:35 Carbon Dioxide 28.6 mmol/L (21-32) 04/26/17 05:35 BUN 21 mg/dL (7-18) H 04/26/17 05:35 Creatinine 0.93 mg/dL (0.55-1.02) 04/26/17 05:35 Est GFR (MDRD) Af Amer > 60 (>60) 04/26/17 05:35 Est GFR (MDRD) Non-Af > 60 (>60) 04/26/17 05:35 Glucose 91 mg/dL (65-99) 04/26/17 05:35 POC Glucose (mg/dL) 126 mg/dL (65-99) H 04/26/17 11:08 Lactic Acid 1.2 mmol/L (0.4-2.0) 04/23/17 15:35 Calcium 7.7 mg/dL (8.5-10.1) L 04/26/17 05:35 Corrected Calcium 9.3 mg/dL (8.5-10.1) 04/26/17 05:35 Total Bilirubin 0.40 mg/dL (0.2-1.0) 04/26/17 05:35 AST 52 Units/L (15-37) H 04/26/17 05:35 ALT 19 Units/L (12-78) 04/26/17 05:35 Alkaline Phosphatase 115 Units/L (46-116) 04/26/17 05:35 Creatine Kinase 103 Units/L (26-192) 04/23/17 15:35 CK-MB (CK-2) < 1.0 ng/mL (0-4.0) 04/23/17 15:35 CK/CKMB % Calc 1.0 % (<4) 04/23/17 15:35 Troponin I 0.02 ng/mL (0-1.5) 04/23/17 15:35 B-Natriuretic Peptide 1620 pg/mL (0-79) H* 04/23/17 15:35 Total Protein 5.0 g/dL (6.4-8.2) L 04/26/17 05:35 Albumin 2.0 g/dL (3.4-5.0) L 04/26/17 05:35 Globulin 3.0 g/dL (2.5-4.5) 04/26/17 05:35 Albumin/Globulin Ratio 0.7 Ratio (1.1-2.1) L 04/26/17 05:35 Specimen Type Catherized urine 04/23/17 16:01 Urine Color Yellow (YELLOW) 04/23/17 16:01 Urine Appearance Hazy (CLEAR) 04/23/17 16:01 Urine pH 5.0 (5.0 - 8.0) 04/23/17 16:01 Ur Specific [place] 1.025 (1.000-1.030) 04/23/17 16:01 Urine Protein 3+ (NEGATIVE) 04/23/17 16:01 Urine Glucose (UA) Negative (NEGATIVE) 04/23/17 16:01 Urine Ketones Negative (NEGATIVE) 04/23/17 16:01 Urine Occult Blood 2+ (NEGATIVE) 04/23/17 16:01 Urine Nitrite Negative (NEGATIVE) 04/23/17 16:01 Urine Bilirubin Negative (NEGATIVE) 04/23/17 16:01 Urine Urobilinogen Normal (NORMAL) 04/23/17 16:01 Ur Leukocyte Esterase 3+ (NEGATIVE) 04/23/17 16:01 Urine RBC 0-5 /HPF (NEGATIVE) 04/23/17 16:01 Urine WBC 6-10 /HPF (NEGATIVE) 04/23/17 16:01 Ur Squamous Epith Cells Negative /HPF (NEGATIVE) 04/23/17 16:01 Urine Bacteria 1+ /HPF (NEGATIVE) 04/23/17 16:01 Ur Culture Indicated? Yes/culture set up 04/23/17 16:01 - Plan (1) Pneumonia Status: Acute Qualifiers: Laterality: bilateral Lung location: lower lobe of lung Plan: pneumonia protocol, levaquin 750mg iv daily, fortaz 1gm iv q8h, respiratory tx, supplemental oxygen, continue to monitor (2) Altered mental state Status: Acute Qualifiers: Altered mental status type: transient alteration of awareness Qualified Code(s): R40.4 - Transient alteration of awareness Plan: treat uti, continue to monitor (3) Leukemoid reaction Status: Acute Plan: IV abx, consult , continue to monitor (4) Urinary tract infection Status: Acute Qualifiers: Urinary tract infection type: acute cystitis Hematuria presence: with hematuria Qualified Code(s): N30.01 - Acute cystitis with hematuria Plan: fortaz 1gm iv q8h, levaquin 750mg iv daily, continue to monitor
[2017-04-26] MEDS: FORTAZ or TAZICEF INJ 1 GM in NS 50 ML IV 50 ML IV SCH ×2 (14:26→22:10)
--- NOTE | 2017-04-26 20:54 | PCM.PROG ---
Progress Note - Progress Note for Day of Date: 04/25/17 - Subjective Subjective: WAS ADMITTED FOR LEUKOCYTOSIS, PNEUMONIA, A URINARY TRACT INFECTION, AND ALTERED MENTAL STATUS. TODAY, SHE IS ALERT AND ORIENTED, LYING IN BED ON MORNING ROUNDS. PATIENTS FAMILY IS AT BEDSIDE. SHE CONTINUES WITH COMPLAINTS OF SHORTNESS OF BREATH, PRODUCTIVE COUGH, AND GENERALIZED WEAKNESS. SPUTUM AT BEDSIDE IS NOTED TO BE THICK AND YELLOW IN COLOR. ON EXAMINATION, HEART IS REGULAR IN RATE AND RHYTHM. BILATERAL LUNGS CONTINUE WITH SCATTERED WHEEZING AND RONCHI THROUGHOUT. SHE IS CURRENTLY UTILIZING OXYGEN VIA NASAL CANNULA AT 2L/MIN. ABDOMEN IS ROUND, SOFT, AND NOTED WITH MILD SUPRAPUBIC TENDERNESS. SHE CONTINUES WITH TRACE EDEMA TO BILATERAL LOWER EXTREMITIES. THERE IS NORMAL RANGE OF MOTION NOTED. HER VITALS THIS MORNING ARE 97.6-83-20- 100%-170/79. LABS WERE OBTAINED. ABNORMAL LAB VALUES INCLUDE THE FOLLOWING: WBC DECREASED FROM 52.9 TO 47.4, RBC 2.89, HGB 8.6, HCT 26.7, PLT COUNT 143, BUN 23 , GLUCOSE 103, CALCIUM 7.7, AST 61, ALK PHOS 119, TOTAL PROTEIN 5.2, ALBUMIN 2.2. SPUTUM, BLOOD, AND URINE CULTURES ARE PENDING. WE OBTAINED A CHEST XRAY TODAY. IT REPORTS FINDINGS SUGGESTIVE OF CONGESTIVE HEART FAILURE LIKELY WITH BILATERAL SMALL PLEURAL EFFUSIONS. PERIHILAR SUBSEGMENTAL ATELECTASIS ON THE RIGHT. CONSULTED WITH PATIENT YESTERDAY AND HAS ORDERED ADDITIONAL LABS. HE WILL REVIEW THE PERIPHERAL SMEAR. SHE CONTINUES TO RECEIVE IV ANTIBIOTICS AND RESPIRATORY TREATMENTS FOR UTI AND PNEUMONIA. WE WILL CONTINUE WITH CURRENT PLAN OF CARE TODAY. WE PLAN TO FOLLOW UP WITH AM LABS AND CHEST XRAY AND CONTINUE TO MONITOR PATIENT. - Past Medical Family Social History Past Med/Fam/Surg Hx: No changes since H&P Allergies: Allergies No Known Drug Allergies Allergy (Verified 04/13/17 18:06) - Review of Systems ROS: No change since H&P - Vital Signs and I&O's Vital Signs: Temperature 98.3 F Pulse Rate [Apical] 79 Pulse Rate 88 Respiratory Rate 20 Blood Pressure [Left Arm] 139/63 Blood Pressure [Right Arm] 132/63 Blood Pressure 134/93 O2 Sat by Pulse Oximetry 99 Intake and Output: Intake & Output 04/24/17 04/25/17 04/26/17 04/27/17 11:59 11:59 11:59 11:59 Intake Total 1111 2597 2928 1013 Output Total 500 550 400 225 Balance 611 2041 4103 788 - Physical Exam Oriented: Normal Eyes: negative: Normal, Blurred Vision, Diplopia, Discharge, Pain, Redness, Photophobia, Other Ear: Normal. negative: Right, Left, Swelling, Ecchymosis, Hemotypanum, Abrasion , Laceration Nose: Normal Throat: Normal. negative: Tonsillar Hypertrophy, Red, Exudate, Dry, Other Respiratory: Right, Left, Generalized, Wheezes, Rhonchi Cardiovascular: Edema (bilateral lower extremity trace edema ) : Normal Auscultation: Bowel Sounds: Normal Palpation: Normal Tenderness: Suprapubic, Mild. negative: Rebound, Guarding, Rigidity Skin: Wound Musculoskeletal: Instability Psychiatric: Normal Mood Description: Calm Affect: Normal Speech Pattern: Clear, Appropriate - Laboratory and Diagnostics Result Diagrams: 04/26/17 05:35 04/26/17 05:35 Labs: 04/23/17 17:00 Sputum - Expectorated Sputum Sputum Culture - Preliminary Methicillin Resis Staph Aureus 04/23/17 17:00 Sputum - Expectorated Sputum - Final 04/23/17 15:40 Blood Blood Culture - Preliminary 04/23/17 15:35 Blood Blood Culture - Preliminary 04/23/17 16:01 Urine,Catheterized Urine Culture - Final Laboratory WBC 47.0 X10^3/uL (3.6-10.0) H* 04/26/17 05:35 RBC 2.89 X10^6/uL (3.5-5.4) L 04/26/17 05:35 Hgb 8.6 g/dL (12.0-16.0) L 04/26/17 05:35 Hct 27.0 % (36.0-47.0) L 04/26/17 05:35 MCV 93.4 fL (80.0-100.0) 04/26/17 05:35 MCH 29.6 pg (27.0-34.0) 04/26/17 05:35 MCHC 31.7 g/dL (33.0-35.0) L 04/26/17 05:35 RDW 17.2 % (11.6-16.5) H 04/26/17 05:35 Plt Count 138 X10^3/uL (150.0-450.0) L 04/26/17 05:35 Plt Count Comment Adequate (ADEQUATE) 04/25/17 05:49 MPV 9.2 fL (7.4-11.0) 04/26/17 05:35 Neut % 20.6 % (42.0-75.0) L 04/26/17 05:35 Lymph % 0.2 % (21.0-51.0) L 04/26/17 05:35 [place] % 78.9 % (0.0-13.0) H 04/26/17 05:35 Eos % 0.3 % (0.9-2.9) L 04/26/17 05:35 Baso % 0 % (0.2-1.0) L 04/26/17 05:35 Neut # 9.7 x10^3/uL (2.2-4.8) H 04/26/17 05:35 Lymph # 0.1 X10^3/uL (1.3-2.9) L 04/26/17 05:35 [place] # 37.1 x10^3/uL (0.3-0.8) H 04/26/17 05:35 Eos # 0.2 x10^3/uL (0.0-0.2) 04/26/17 05:35 Baso # 0.0 X10^3/uL (0.0-0.1) 04/26/17 05:35 Absolute Nucleated RBC 0.7 /100WBC 04/26/17 05:35 Total Counted 100 04/25/17 05:49 Neutrophils % (Manual) 18 % (39-76) L 04/25/17 05:49 Band Neutrophils % 2 % (0-10) 04/24/17 05:45 Lymphocytes % (Manual) 12 % (13-43) L 04/25/17 05:49 Monocytes % (Manual) 4 % (4-9) 04/25/17 05:49 Atypical Lymphocytes 56 04/25/17 05:49 Blast Cells 10 (-1) H 04/25/17 05:49 Plt Morphology Comment Normal (NORMAL) 04/25/17 05:49 RBC Morphology Normal (NORMAL) 04/25/17 05:49 Hypochromasia Slight A 04/23/17 15:35 Anisocytosis 1+ A 04/23/17 15:35 Microcytosis Slight A 04/23/17 15:35 Macrocytosis Slight A 04/23/17 15:35 INR Target Range - 04/23/17 15:35 INR 1.04 (0.8-1.3) 04/23/17 15:35 PTT 30.3 SECONDS (22.9-36.5) 04/23/17 15:35 PTT Comment - 04/23/17 15:35 D-Dimer 843 ng/mL (0-400) H* 04/23/17 15:35 Sample Site Left radial 04/23/17 15:40 ABG pH 7.380 (7.35-7.45) 04/23/17 15:40 ABG pCO2 56.0 mmHg (35.0-45.0) H* 04/23/17 15:40 ABG pO2 86.0 mmHg (80.0-100.0) 04/23/17 15:40 ABG HCO3 33.1 mmol/L (22-26) H* 04/23/17 15:40 ABG O2 Saturation 96.0 % (90-100) 04/23/17 15:40 ABG Base Excess 6.4 mmol/L (-2.0-2.0) H 04/23/17 15:40 Bar Test Pos 04/23/17 15:40 A-a Gradient 72.0 mmHg 04/23/17 15:40 FiO2 32.000 04/23/17 15:40 Blood Gas Comments [place] well mm 04/23/17 15:40 Sodium 141 mmol/L (136-145) 04/26/17 05:35 Corrected Sodium TNP 04/26/17 05:35 Potassium 3.8 mmol/L (3.5-5.1) 04/26/17 05:35 Chloride 107 mmol/L (98-107) 04/26/17 05:35 Carbon Dioxide 28.6 mmol/L (21-32) 04/26/17 05:35 BUN 21 mg/dL (7-18) H 04/26/17 05:35 Creatinine 0.93 mg/dL (0.55-1.02) 04/26/17 05:35 Est GFR (MDRD) Af Amer > 60 (>60) 04/26/17 05:35 Est GFR (MDRD) Non-Af > 60 (>60) 04/26/17 05:35 Glucose 91 mg/dL (65-99) 04/26/17 05:35 POC Glucose (mg/dL) 117 mg/dL (65-99) H 04/26/17 16:17 Lactic Acid 1.2 mmol/L (0.4-2.0) 04/23/17 15:35 Calcium 7.7 mg/dL (8.5-10.1) L 04/26/17 05:35 Corrected Calcium 9.3 mg/dL (8.5-10.1) 04/26/17 05:35 Total Bilirubin 0.40 mg/dL (0.2-1.0) 04/26/17 05:35 AST 52 Units/L (15-37) H 04/26/17 05:35 ALT 19 Units/L (12-78) 04/26/17 05:35 Alkaline Phosphatase 115 Units/L (46-116) 04/26/17 05:35 Creatine Kinase 103 Units/L (26-192) 04/23/17 15:35 CK-MB (CK-2) < 1.0 ng/mL (0-4.0) 04/23/17 15:35 CK/CKMB % Calc 1.0 % (<4) 04/23/17 15:35 Troponin I 0.02 ng/mL (0-1.5) 04/23/17 15:35 B-Natriuretic Peptide 1620 pg/mL (0-79) H* 04/23/17 15:35 Total Protein 5.0 g/dL (6.4-8.2) L 04/26/17 05:35 Albumin 2.0 g/dL (3.4-5.0) L 04/26/17 05:35 Globulin 3.0 g/dL (2.5-4.5) 04/26/17 05:35 Albumin/Globulin Ratio 0.7 Ratio (1.1-2.1) L 04/26/17 05:35 Specimen Type Catherized urine 04/23/17 16:01 Urine Color Yellow (YELLOW) 04/23/17 16:01 Urine Appearance Hazy (CLEAR) 04/23/17 16:01 Urine pH 5.0 (5.0 - 8.0) 04/23/17 16:01 Ur Specific [place] 1.025 (1.000-1.030) 04/23/17 16:01 Urine Protein 3+ (NEGATIVE) 04/23/17 16:01 Urine Glucose (UA) Negative (NEGATIVE) 04/23/17 16:01 Urine Ketones Negative (NEGATIVE) 04/23/17 16:01 Urine Occult Blood 2+ (NEGATIVE) 04/23/17 16:01 Urine Nitrite Negative (NEGATIVE) 04/23/17 16:01 Urine Bilirubin Negative (NEGATIVE) 04/23/17 16:01 Urine Urobilinogen Normal (NORMAL) 04/23/17 16:01 Ur Leukocyte Esterase 3+ (NEGATIVE) 04/23/17 16:01 Urine RBC 0-5 /HPF (NEGATIVE) 04/23/17 16:01 Urine WBC 6-10 /HPF (NEGATIVE) 04/23/17 16:01 Ur Squamous Epith Cells Negative /HPF (NEGATIVE) 04/23/17 16:01 Urine Bacteria 1+ /HPF (NEGATIVE) 04/23/17 16:01 Ur Culture Indicated? Yes/culture set up 04/23/17 16:01 - Plan (1) Pneumonia Status: Acute Qualifiers: Laterality: bilateral Lung location: lower lobe of lung Plan: pneumonia protocol, levaquin 750mg iv daily, fortaz 1gm iv q8h, respiratory tx, supplemental oxygen, continue to monitor (2) Altered mental state Status: Acute Qualifiers: Altered mental status type: transient alteration of awareness Qualified Code(s): R40.4 - Transient alteration of awareness Plan: treat uti, continue to monitor (3) Leukemoid reaction Status: Acute Plan: IV abx, consult , continue to monitor (4) Urinary tract infection Status: Acute Qualifiers: Urinary tract infection type: acute cystitis Hematuria presence: with hematuria Qualified Code(s): N30.01 - Acute cystitis with hematuria Plan: fortaz 1gm iv q8h, levaquin 750mg iv daily, continue to monitor
[2017-04-26] MEDS: NEURONTIN CAP 100 MG PO PRN (21:03)
[2017-04-26] MEDS: LIPITOR TAB 40 MG PO SCH (21:03)
[2017-04-27] MEDS: DUONEB 0.5 MG/3 MG NEB SCH ×6 (01:11→21:14)
[2017-04-27] MEDS: NS 1000 ML 1,000 ML IV SCH ×3 (03:02→21:29)
[2017-04-27 05:42] LABS: ALANINE AMINOTRANSFERASE 15 Units/L (12-78); ALBUMIN 1.9 g/dL (3.4-5.0); ALKALINE PHOSPHATASE 120 Units/L (46-116); ASPARTATE AMINO TRANSFERASE 45 Units/L (15-37); BLOOD UREA NITROGEN 22 mg/dL (7-18); CALCIUM 7.7 mg/dL (8.5-10.1); CARBON DIOXIDE 28.3 mmol/L (21-32); CHLORIDE 108 mmol/L (98-107); COR CA(FOR HYPOALB) 9.4 mg/dL (8.5-10.1); CREATININE 1.08 mg/dL (0.55-1.02); SODIUM 140 mmol/L (136-145); TOTAL PROTEIN 4.8 g/dL (6.4-8.2); eGFR BLACK RACES > 60 (>60); eGFR NON BLACK RACES 52 (>60)
[2017-04-27] MEDS: FORTAZ or TAZICEF INJ 1 GM in NS 50 ML IV 50 ML IV SCH ×3 (05:52→21:32)
[2017-04-27 06:05] LABS: BASOPHILS % (AUTO) 0 % (0.2-1.0); EOSINOPHILS # (AUTO) 0.2 x10^3/uL (0.0-0.2); EOSINOPHILS % (AUTO) 0.4 % (0.9-2.9); HEMATOCRIT 24.4 % (36.0-47.0); HEMOGLOBIN 7.7 g/dL (12.0-16.0); LYMPHOCYTES # (AUTO) 1.2 X10^3/uL (1.3-2.9); LYMPHOCYTES % (AUTO) 2.2 % (21.0-51.0); MEAN CORPUSCULAR HEMOGLOBIN 29.8 pg (27.0-34.0); MEAN CORPUSCULAR HGB CONC 31.7 g/dL (33.0-35.0); MEAN CORPUSCULAR VOLUME 94.2 fL (80.0-100.0); MEAN PLATELET VOLUME 9.2 fL (7.4-11.0); MONOCYTES # (AUTO) 42.5 x10^3/uL (0.3-0.8); MONOCYTES % (AUTO) 77.9 % (0.0-13.0); NEUTROPHILS # (AUTO) 10.6 x10^3/uL (2.2-4.8); NEUTROPHILS % (AUTO) 19.5 % (42.0-75.0); PLATELET COUNT 135 X10^3/uL (150.0-450.0); RED BLOOD COUNT 2.59 X10^6/uL (3.5-5.4); RED CELL DISTRIBUTION WIDTH 16.9 % (11.6-16.5)
[2017-04-27 06:21] LABS: WHITE BLOOD COUNT 54.5 X10^3/uL (3.6-10.0)
--- NOTE | 2017-04-27 07:32 | RAD ---
HISTORY: Shortness of breath Study: Chest AP portable Comparison: 04/26/2017 Findings: The patient is status post median sternotomy and CABG. The heart is upper limits normal in size. Pulm onary venous congestion is present. The phani are prominent and indistinct suggestive of continued int erstitial edema. Perihilar subsegmental atelectasis is present on the right. Bilateral pleural effusi ons are likely present and unchanged. The bony thorax is unremarkable. IMPRESSION: Congestive heart failure unchanged from the prior examination Likely bilateral small pleural effusions, stable Reported By:
[2017-04-27] MEDS: HEMOCYTE-PLUS PO SCH (09:54)
[2017-04-27] MEDS: ROBITUSSIN DM PO SCH ×4 (09:54→21:33)
[2017-04-27] MEDS: PROzac PO SCH (09:54)
[2017-04-27] MEDS: ASPIRIN EC 81 MG PO SCH (09:54)
[2017-04-27] MEDS: MILK OF MAGNESIA PO SCH (09:54)
[2017-04-27] MEDS: LEVAQUIN PREMIX IV 750 MG 750 MG/150 ML BAG IV SCH (09:54)
[2017-04-27] MEDS: SYNTHROID 25 mcg TAB PO SCH (09:54)
[2017-04-27] MEDS: LOPRESSOR TAB 25 MG PO SCH ×2 (09:55→21:30)
[2017-04-27] MEDS: SNACK - Diabetic Appropriate PO SCH ×2 (09:55→21:34)
[2017-04-27] MEDS: MEGACE PO SCH ×2 (09:55→21:31)
[2017-04-27] MEDS: FOLIC ACID TAB 1 MG PO SCH (09:55)
[2017-04-27] MEDS: XANAX PO SCH ×2 (09:55→21:30)
[2017-04-27] MEDS ORDERED: PHARMACY CONSULT - VANCOMYCIN XX SCH (11:00)
[2017-04-27] MEDS: VANCOMYCIN HCL 1 GM VIAL 1 GM in NS 250 ML IV 250 ML IV SCH ×2 (12:00→21:32)
[2017-04-27] MEDS ORDERED: FORTAZ or TAZICEF INJ ONE (13:42)
--- NOTE | 2017-04-27 20:08 | PCM.PROG ---
Progress Note - Progress Note for Day of Date: 04/26/17 - Subjective Subjective: WAS ADMITTED FOR LEUKOCYTOSIS, PNEUMONIA, A URINARY TRACT INFECTION, AND ALTERED MENTAL STATUS. TODAY, SHE IS ALERT AND ORIENTED, LYING IN BED ON MORNING ROUNDS. PATIENTS FAMILY IS AT BEDSIDE. SHE CONTINUES WITH COMPLAINTS OF SHORTNESS OF BREATH, PRODUCTIVE COUGH, AND GENERALIZED WEAKNESS. SHE REPORTS SLIGHT IMPROVEMENT IN SYMTOMS SINCE YESTERDAY. ON EXAMINATION, HEART IS REGULAR IN RATE AND RHYTHM. BILATERAL LUNGS CONTINUE WITH SCATTERED WHEEZING AND RONCHI THROUGHOUT. SHE IS CURRENTLY UTILIZING OXYGEN VIA NASAL CANNULA AT 2L/MIN. ABDOMEN IS ROUND, SOFT, AND NOTED WITH MILD SUPRAPUBIC TENDERNESS. SHE CONTINUES WITH TRACE EDEMA TO BILATERAL LOWER EXTREMITIES. THERE IS NORMAL RANGE OF MOTION NOTED. HER VITALS THIS MORNING ARE 97.5-88-20-99 %-138/63. LABS WERE OBTAINED. ABNORMAL LAB VALUES INCLUDE THE FOLLOWING: WBC 47.0, RBC 2.89, HGB 8.6, HCT 27.0, BUN 21, CALCIUM 7.7, AST 52, TOTAL PROTEIN 5.0, ALBUMIN 2.0. SPUTUM, BLOOD, AND URINE CULTURES ARE PENDING. WE OBTAINED A CHEST XRAY TODAY. IT REPORTS FINDINGS STILL SUGGESTIVE OF CONGESTIVE HEART FAILURE IN THE FOR OF INTERSTITIAL EDEMA. BILATERAL PLEURAL EFFUSIONS, STABLE. SHE CONTINUES TO RECEIVE IV ANTIBIOTICS AND RESPIRATORY TREATMENTS FOR UTI AND PNEUMONIA. WE WILL GIVE LASIX 40MG IV X 2 DOSES. OTHERWISE, WE WILL CONTINUE WITH CURRENT PLAN OF CARE TODAY. WE PLAN TO FOLLOW UP WITH AM LABS AND CHEST XRAY AND CONTINUE TO MONITOR PATIENT. - Past Medical Family Social History Past Med/Fam/Surg Hx: No changes since H&P Allergies: Allergies No Known Drug Allergies Allergy (Verified 04/13/17 18:06) - Review of Systems ROS: No change since H&P - Vital Signs and I&O's Vital Signs: Temperature 97.7 F Pulse Rate [Apical] 74 Pulse Rate 77 Respiratory Rate 24 Blood Pressure [Left Arm] 127/59 Blood Pressure [Right Arm] 132/63 Blood Pressure 134/93 O2 Sat by Pulse Oximetry 100 Intake and Output: Intake & Output 04/25/17 04/26/17 04/27/17 04/28/17 11:59 11:59 11:59 11:59 Intake Total 2591 2928 2547 1372 Output Total 550 400 725 100 Balance 2041 2528 1822 1272 - Physical Exam Oriented: Normal Eyes: negative: Normal, Blurred Vision, Diplopia, Discharge, Pain, Redness, Photophobia, Other Ear: Normal. negative: Right, Left, Swelling, Ecchymosis, Hemotypanum, Abrasion , Laceration Nose: Normal Throat: Normal. negative: Tonsillar Hypertrophy, Red, Exudate, Dry, Other Respiratory: Right, Left, Generalized, Wheezes, Rhonchi Cardiovascular: Edema (bilateral lower extremity trace edema ) : Normal Auscultation: Bowel Sounds: Normal Palpation: Normal Tenderness: Suprapubic, Mild. negative: Rebound, Guarding, Rigidity Skin: Wound Musculoskeletal: Instability Psychiatric: Normal Mood Description: Calm Affect: Normal Speech Pattern: Clear, Appropriate - Laboratory and Diagnostics Result Diagrams: 04/27/17 05:02 04/27/17 05:02 Labs: 04/23/17 17:00 Sputum - Expectorated Sputum Sputum Culture - Preliminary Methicillin Resis Staph Aureus 04/23/17 17:00 Sputum - Expectorated Sputum - Final 04/23/17 15:40 Blood Blood Culture - Preliminary 04/23/17 15:35 Blood Blood Culture - Preliminary 04/23/17 16:01 Urine,Catheterized Urine Culture - Final Laboratory WBC 54.5 X10^3/uL (3.6-10.0) H* 04/27/17 05:02 RBC 2.59 X10^6/uL (3.5-5.4) L 04/27/17 05:02 Hgb 7.7 g/dL (12.0-16.0) L 04/27/17 05:02 Hct 24.4 % (36.0-47.0) L 04/27/17 05:02 MCV 94.2 fL (80.0-100.0) 04/27/17 05:02 MCH 29.8 pg (27.0-34.0) 04/27/17 05:02 MCHC 31.7 g/dL (33.0-35.0) L 04/27/17 05:02 RDW 16.9 % (11.6-16.5) H 04/27/17 05:02 Plt Count 135 X10^3/uL (150.0-450.0) L 04/27/17 05:02 Plt Count Comment Adequate (ADEQUATE) 04/25/17 05:49 MPV 9.2 fL (7.4-11.0) 04/27/17 05:02 Neut % 19.5 % (42.0-75.0) L 04/27/17 05:02 Lymph % 2.2 % (21.0-51.0) L 04/27/17 05:02 [place] % 77.9 % (0.0-13.0) H 04/27/17 05:02 Eos % 0.4 % (0.9-2.9) L 04/27/17 05:02 Baso % 0 % (0.2-1.0) L 04/27/17 05:02 Neut # 10.6 x10^3/uL (2.2-4.8) H 04/27/17 05:02 Lymph # 1.2 X10^3/uL (1.3-2.9) L 04/27/17 05:02 [place] # 42.5 x10^3/uL (0.3-0.8) H 04/27/17 05:02 Eos # 0.2 x10^3/uL (0.0-0.2) 04/27/17 05:02 Baso # 0.0 X10^3/uL (0.0-0.1) 04/27/17 05:02 Absolute Nucleated RBC 0.9 /100WBC 04/27/17 05:02 Total Counted 100 04/25/17 05:49 Neutrophils % (Manual) 18 % (39-76) L 04/25/17 05:49 Band Neutrophils % 2 % (0-10) 04/24/17 05:45 Lymphocytes % (Manual) 12 % (13-43) L 04/25/17 05:49 Monocytes % (Manual) 4 % (4-9) 04/25/17 05:49 Atypical Lymphocytes 56 04/25/17 05:49 Blast Cells 10 (-1) H 04/25/17 05:49 Plt Morphology Comment Normal (NORMAL) 04/25/17 05:49 RBC Morphology Normal (NORMAL) 04/25/17 05:49 Hypochromasia Slight A 04/23/17 15:35 Anisocytosis 1+ A 04/23/17 15:35 Microcytosis Slight A 04/23/17 15:35 Macrocytosis Slight A 04/23/17 15:35 INR Target Range - 04/23/17 15:35 INR 1.04 (0.8-1.3) 04/23/17 15:35 PTT 30.3 SECONDS (22.9-36.5) 04/23/17 15:35 PTT Comment - 04/23/17 15:35 D-Dimer 843 ng/mL (0-400) H* 04/23/17 15:35 Sample Site Left radial 04/23/17 15:40 ABG pH 7.380 (7.35-7.45) 04/23/17 15:40 ABG pCO2 56.0 mmHg (35.0-45.0) H* 04/23/17 15:40 ABG pO2 86.0 mmHg (80.0-100.0) 04/23/17 15:40 ABG HCO3 33.1 mmol/L (22-26) H* 04/23/17 15:40 ABG O2 Saturation 96.0 % (90-100) 04/23/17 15:40 ABG Base Excess 6.4 mmol/L (-2.0-2.0) H 04/23/17 15:40 Bar Test Pos 04/23/17 15:40 A-a Gradient 72.0 mmHg 04/23/17 15:40 FiO2 32.000 04/23/17 15:40 Blood Gas Comments Mukund well mm 04/23/17 15:40 Sodium 140 mmol/L (136-145) 04/27/17 05:02 Corrected Sodium TNP 04/27/17 05:02 Potassium 3.8 mmol/L (3.5-5.1) 04/27/17 05:02 Chloride 108 mmol/L (98-107) H 04/27/17 05:02 Carbon Dioxide 28.3 mmol/L (21-32) 04/27/17 05:02 BUN 22 mg/dL (7-18) H 04/27/17 05:02 Creatinine 1.08 mg/dL (0.55-1.02) H 04/27/17 05:02 Est GFR (MDRD) Af Amer > 60 (>60) 04/27/17 05:02 Est GFR (MDRD) Non-Af 52 (>60) L 04/27/17 05:02 Glucose 95 mg/dL (65-99) 04/27/17 05:02 POC Glucose (mg/dL) 94 mg/dL (65-99) 04/27/17 16:22 Lactic Acid 1.2 mmol/L (0.4-2.0) 04/23/17 15:35 Calcium 7.7 mg/dL (8.5-10.1) L 04/27/17 05:02 Corrected Calcium 9.4 mg/dL (8.5-10.1) 04/27/17 05:02 Total Bilirubin 0.30 mg/dL (0.2-1.0) 04/27/17 05:02 AST 45 Units/L (15-37) H 04/27/17 05:02 ALT 15 Units/L (12-78) 04/27/17 05:02 Alkaline Phosphatase 120 Units/L (46-116) H 04/27/17 05:02 Creatine Kinase 103 Units/L (26-192) 04/23/17 15:35 CK-MB (CK-2) < 1.0 ng/mL (0-4.0) 04/23/17 15:35 CK/CKMB % Calc 1.0 % (<4) 04/23/17 15:35 Troponin I 0.02 ng/mL (0-1.5) 04/23/17 15:35 B-Natriuretic Peptide 1620 pg/mL (0-79) H* 04/23/17 15:35 Total Protein 4.8 g/dL (6.4-8.2) L 04/27/17 05:02 Albumin 1.9 g/dL (3.4-5.0) L 04/27/17 05:02 Globulin 2.9 g/dL (2.5-4.5) 04/27/17 05:02 Albumin/Globulin Ratio 0.7 Ratio (1.1-2.1) L 04/27/17 05:02 Specimen Type Catherized urine 04/23/17 16:01 Urine Color Yellow (YELLOW) 04/23/17 16:01 Urine Appearance Hazy (CLEAR) 04/23/17 16:01 Urine pH 5.0 (5.0 - 8.0) 04/23/17 16:01 Ur Specific [place] 1.025 (1.000-1.030) 04/23/17 16:01 Urine Protein 3+ (NEGATIVE) 04/23/17 16:01 Urine Glucose (UA) Negative (NEGATIVE) 04/23/17 16:01 Urine Ketones Negative (NEGATIVE) 04/23/17 16:01 Urine Occult Blood 2+ (NEGATIVE) 04/23/17 16:01 Urine Nitrite Negative (NEGATIVE) 04/23/17 16:01 Urine Bilirubin Negative (NEGATIVE) 04/23/17 16:01 Urine Urobilinogen Normal (NORMAL) 04/23/17 16:01 Ur Leukocyte Esterase 3+ (NEGATIVE) 04/23/17 16:01 Urine RBC 0-5 /HPF (NEGATIVE) 04/23/17 16:01 Urine WBC 6-10 /HPF (NEGATIVE) 04/23/17 16:01 Ur Squamous Epith Cells Negative /HPF (NEGATIVE) 04/23/17 16:01 Urine Bacteria 1+ /HPF (NEGATIVE) 04/23/17 16:01 Ur Culture Indicated? Yes/culture set up 04/23/17 16:01 - Plan (1) Pneumonia Status: Acute Qualifiers: Laterality: bilateral Lung location: lower lobe of lung Plan: pneumonia protocol, levaquin 750mg iv daily, fortaz 1gm iv q8h, respiratory tx, supplemental oxygen, continue to monitor (2) Altered mental state Status: Acute Qualifiers: Altered mental status type: transient alteration of awareness Qualified Code(s): R40.4 - Transient alteration of awareness Plan: treat uti, continue to monitor (3) Leukemoid reaction Status: Acute Plan: IV abx, consult , continue to monitor (4) Urinary tract infection Status: Acute Qualifiers: Urinary tract infection type: acute cystitis Hematuria presence: with hematuria Qualified Code(s): N30.01 - Acute cystitis with hematuria Plan: fortaz 1gm iv q8h, levaquin 750mg iv daily, continue to monitor (5) Congestive heart failure Status: Acute Qualifiers: Congestive heart failure type: unspecified Congestive heart failure chronicity: acute on chronic Qualified Code(s): I50.9 - Heart failure, unspecified Plan: LASIX 40MG IV BID X 2 DOSES, CONTINUE HEART FAILURE MEDS, CONTINUE RESPIRATORY TX AND SUPPLEMENTAL OXYGEN, CONTINUE TO MONITOR
[2017-04-27] MEDS: COLACE CAP 100 MG PO SCH (21:30)
[2017-04-27] MEDS: LIPITOR TAB 40 MG PO SCH (21:30)
[2017-04-28] MEDS: DUONEB 0.5 MG/3 MG NEB SCH ×6 (01:35→21:17)
[2017-04-28] MEDS: FORTAZ or TAZICEF INJ 1 GM in NS 50 ML IV 50 ML IV SCH ×3 (05:00→22:55)
[2017-04-28] MEDS: NS 1000 ML 1,000 ML IV SCH ×2 (05:00→15:37)
[2017-04-28 05:36] LABS: BASOPHILS % (AUTO) 0 % (0.2-1.0); EOSINOPHILS # (AUTO) 0.2 x10^3/uL (0.0-0.2); EOSINOPHILS % (AUTO) 0.3 % (0.9-2.9); HEMATOCRIT 26.2 % (36.0-47.0); HEMOGLOBIN 8.3 g/dL (12.0-16.0); LYMPHOCYTES # (AUTO) 0.1 X10^3/uL (1.3-2.9); LYMPHOCYTES % (AUTO) 0.1 % (21.0-51.0); MEAN CORPUSCULAR HEMOGLOBIN 30.1 pg (27.0-34.0); MEAN CORPUSCULAR HGB CONC 31.6 g/dL (33.0-35.0); MEAN CORPUSCULAR VOLUME 95.2 fL (80.0-100.0); MEAN PLATELET VOLUME 8.9 fL (7.4-11.0); MONOCYTES # (AUTO) 48.5 x10^3/uL (0.3-0.8); MONOCYTES % (AUTO) 78.1 % (0.0-13.0); NEUTROPHILS # (AUTO) 13.3 x10^3/uL (2.2-4.8); NEUTROPHILS % (AUTO) 21.5 % (42.0-75.0); PLATELET COUNT 147 X10^3/uL (150.0-450.0); RED BLOOD COUNT 2.75 X10^6/uL (3.5-5.4); RED CELL DISTRIBUTION WIDTH 16.9 % (11.6-16.5)
[2017-04-28 05:47] LABS: ALANINE AMINOTRANSFERASE 14 Units/L (12-78); ALBUMIN 1.9 g/dL (3.4-5.0); ALKALINE PHOSPHATASE 146 Units/L (46-116); ASPARTATE AMINO TRANSFERASE 51 Units/L (15-37); BLOOD UREA NITROGEN 23 mg/dL (7-18); CALCIUM 7.9 mg/dL (8.5-10.1); CARBON DIOXIDE 27.3 mmol/L (21-32); CHLORIDE 106 mmol/L (98-107); COR CA(FOR HYPOALB) 9.6 mg/dL (8.5-10.1); CREATININE 1.16 mg/dL (0.55-1.02); SODIUM 140 mmol/L (136-145); TOTAL PROTEIN 5.1 g/dL (6.4-8.2); eGFR BLACK RACES 58 (>60); eGFR NON BLACK RACES 48 (>60)
[2017-04-28 06:09] LABS: WHITE BLOOD COUNT 62.1 X10^3/uL (3.6-10.0)
--- NOTE | 2017-04-28 07:25 | RAD ---
HISTORY: Shortness of breath Study: Single-view chest Comparison: 04/27/2017. Technique: Patient is rotated toward the left. Findings: There again changes of CABG. Cardiac monitoring electrodes are noted on the chest. Trachea is midline . There is cardiomegaly with aortic uncoiling. Bilateral foci of perihilar edema are again seen. Ther e are bilateral pleural effusions, the right-sided pleural effusion has increased compared to prior s tudies. Increased edema is also noted in the right lung base osseous structures are intact. IMPRESSION: Cardiomegaly with signs of CHF. Bilateral perihilar edema is present with increasing edema in the rig ht lower lobe. Right pleural effusion has increased. Left pleural effusion is likely unchanged. Reported By:
[2017-04-28] MEDS: VANCOMYCIN HCL 1 GM VIAL 1 GM in NS 250 ML IV 250 ML IV SCH ×2 (09:18→22:59)
[2017-04-28] MEDS: MILK OF MAGNESIA PO SCH (09:20)
[2017-04-28] MEDS: XANAX PO SCH ×2 (09:20→22:57)
[2017-04-28] MEDS: HEMOCYTE-PLUS PO SCH (09:20)
[2017-04-28] MEDS: LOPRESSOR TAB 25 MG PO SCH ×2 (09:20→22:57)
[2017-04-28] MEDS: ASPIRIN EC 81 MG PO SCH (09:20)
[2017-04-28] MEDS: ROBITUSSIN DM PO SCH ×4 (09:20→22:57)
[2017-04-28] MEDS: PROzac PO SCH (09:20)
[2017-04-28] MEDS: MEGACE PO SCH ×2 (09:21→22:57)
[2017-04-28] MEDS: SYNTHROID 25 mcg TAB PO SCH (09:21)
[2017-04-28] MEDS: FOLIC ACID TAB 1 MG PO SCH (09:21)
[2017-04-28] MEDS: LASIX IVP SCH ×2 (11:33→22:56)
[2017-04-28] MEDS: BACTRIM DS TAB PO SCH ×2 (11:34→22:57)
[2017-04-28] MEDS ORDERED: PHARMACY COMMENT IV ONE (20:30)
[2017-04-28 21:53] LABS: CREATININE 1.19 mg/dL (0.55-1.02)
[2017-04-28 22:13] LABS: VANCOMYCIN,TROUGH 21.5 ug/mL (15-20)
[2017-04-28] MEDS: COLACE CAP 100 MG PO SCH (22:57)
[2017-04-28] MEDS: LIPITOR TAB 40 MG PO SCH (22:57)
[2017-04-28] MEDS: SNACK - Diabetic Appropriate PO SCH (22:58)
[2017-04-29] MEDS: DUONEB 0.5 MG/3 MG NEB SCH ×5 (01:30→16:14)
[2017-04-29] MEDS: NS 1000 ML 1,000 ML IV SCH ×2 (05:30→19:01)
[2017-04-29] MEDS: FORTAZ or TAZICEF INJ 1 GM in NS 50 ML IV 50 ML IV SCH ×3 (06:37→23:10)
[2017-04-29] MEDS ORDERED: PHARMACY CONSULT - VANCOMYCIN XX SCH (07:00)
[2017-04-29 07:08] LABS: CARBON DIOXIDE 27.2 mmol/L (21-32); COR CA(FOR HYPOALB) 9.6 mg/dL (8.5-10.1); CREATININE 1.25 mg/dL (0.55-1.02); TOTAL PROTEIN 5.5 g/dL (6.4-8.2)
[2017-04-29 07:16] LABS: BASOPHILS % (AUTO) 0 % (0.2-1.0); EOSINOPHILS # (AUTO) 0.2 x10^3/uL (0.0-0.2); EOSINOPHILS % (AUTO) 0.4 % (0.9-2.9); HEMATOCRIT 29.3 % (36.0-47.0); HEMOGLOBIN 9.1 g/dL (12.0-16.0); LYMPHOCYTES # (AUTO) 0.1 X10^3/uL (1.3-2.9); LYMPHOCYTES % (AUTO) 0.2 % (21.0-51.0); MEAN CORPUSCULAR HEMOGLOBIN 29.6 pg (27.0-34.0); MEAN CORPUSCULAR VOLUME 95.3 fL (80.0-100.0); MEAN PLATELET VOLUME 9.2 fL (7.4-11.0); MONOCYTES # (AUTO) 47.2 x10^3/uL (0.3-0.8); MONOCYTES % (AUTO) 73.3 % (0.0-13.0); NEUTROPHILS # (AUTO) 16.8 x10^3/uL (2.2-4.8); NEUTROPHILS % (AUTO) 26.1 % (42.0-75.0); PLATELET COUNT 166 X10^3/uL (150.0-450.0); RED BLOOD COUNT 3.08 X10^6/uL (3.5-5.4); RED CELL DISTRIBUTION WIDTH 17.7 % (11.6-16.5)
[2017-04-29 07:22] LABS: WHITE BLOOD COUNT 64.4 X10^3/uL (3.6-10.0)
[2017-04-29] MEDS: VANCOMYCIN HCL 500 MG VIAL 750 MG in D5W 250 ML IV 250 ML IV SCH ×2 (09:04→21:50)
[2017-04-29] MEDS: ALBUMIN HUMAN 25%- 100ML 200 ML IV SCH (09:06)
[2017-04-29] MEDS: MILK OF MAGNESIA PO SCH (09:07)
[2017-04-29] MEDS: LOPRESSOR TAB 25 MG PO SCH ×2 (09:07→21:50)
[2017-04-29] MEDS: ASPIRIN EC 81 MG PO SCH (09:07)
[2017-04-29] MEDS: ROBITUSSIN DM PO SCH ×4 (09:07→21:50)
[2017-04-29] MEDS: FOLIC ACID TAB 1 MG PO SCH (09:07)
[2017-04-29] MEDS: PROzac PO SCH (09:07)
[2017-04-29] MEDS: MEGACE PO SCH ×2 (09:08→21:50)
[2017-04-29] MEDS: NEURONTIN CAP 100 MG PO PRN (09:08)
[2017-04-29] MEDS: HEMOCYTE-PLUS PO SCH (09:08)
[2017-04-29] MEDS: BACTRIM DS TAB PO SCH ×2 (09:08→21:50)
[2017-04-29] MEDS: XANAX PO SCH ×2 (09:08→21:50)
[2017-04-29] MEDS: LASIX IVP SCH ×2 (09:08→21:50)
[2017-04-29] MEDS: SYNTHROID 25 mcg TAB PO SCH (09:08)
--- NOTE | 2017-04-29 12:21 | RAD ---
The Examination: Portable AP chest History: SOB Comparison 04/28/2017 Findings:Stable cardiac size, partly obscured by extensive pleural-parenchymal opacities bilaterally. There is no evidence for complicating pneumothorax. Pulmonary volumes are reduced. Impression: No significant change since 1 day prior. Findings remain consistent with congestive failu re and pulmonary edema although associated pneumonia may be present. Reported By:
[2017-04-29 15:51] LABS: ABG BASE EXCESS 3.3 mmol/L (-2.0-2.0)
[2017-04-29 15:52] LABS: ABG ALLEN TEST POS; ABG HCO3 30.6 mmol/L (22-26)
--- NOTE | 2017-04-29 16:33 | CT ---
CT HEAD WITHOUT CONTRAST CLINICAL HISTORY: 76-year-old female with altered mental status. COMPARISON: CT head 04/15/2017. TECHNIQUE: Multiple, non-contrasted axial CT images were obtained from the skull base to the cranial vertex. Coronal and sagittal reformats were performed. FINDINGS: There are no abnormal intra- or extra-axial fluid collections, midline shift, or mass effec t. Mcallister-white differentiation is normal. Global cortical involutional changes are present that are ad vanced for the patient's stated age. The ventricular system is mildly enlarged but commensurate with the degree of sulcal prominence. Chronic infarction left middle frontal gyrus with associated encepha lomalacia. Chronic bilateral lacunar infarctions basal ganglia. Periventricular and supraventricular white matter hypodensity is present that is nonspecific in appearance, but most likely to represent m icrovascular ischemic changes. Atherosclerotic vascular calcification is present within the carotid s iphons and distal vertebral arteries. The imaged paranasal sinuses, mastoid air cells, and tympanic spaces are clear. Hyperostosis frontali s interna. IMPRESSION: 1. No definite evidence of an acute intracranial process. If clinical concern persists for acute str moira, consider MRI/MRA brain. 2. 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 Chronic lacunar infarctions bilateral basal ganglia. 3. Moderate microvascular white matter ischemic changes, with associated volume loss. Reported By:
[2017-04-29] MEDS: SNACK - Diabetic Appropriate PO SCH (20:00)
[2017-04-29] MEDS: COLACE CAP 100 MG PO SCH (21:50)
[2017-04-29] MEDS: TUSSIONEX PENNKINETIC SUSP PO PRN (21:50)
[2017-04-29] MEDS: LIPITOR TAB 40 MG PO SCH (21:50)
[2017-04-30] MEDS: DUONEB 0.5 MG/3 MG NEB SCH ×7 (01:27→20:35)
[2017-04-30] MEDS: NS 1000 ML 1,000 ML IV SCH ×4 (02:21→23:53)
--- NOTE | 2017-04-30 06:01 | RAD ---
Chest AP portable Indication: Altered mental status and vomiting. Dyspnea. Decreasing O2 saturations. Findings: Comparison made to the previous day's radiograph There is cardiomegaly with sternotomy change. Diffuse increased interstitial markings noted. Right ef fusion suspected. Underlying pneumonia possible. Impression: Congestive heart failure suggested with underlying infiltrates and effusions possible. Fo llow-up to resolution. Reported By:
--- NOTE | 2017-04-30 06:18 | RAD ---
Chest AP portable Indication: Respiratory failure Comparison: Radiograph from earlier the same day Findings: Endotracheal tube projects at the lower border of the clavicles. NG tube is directed toward s the stomach. Heart size is enlarged. There is bilateral increased interstitial markings, worse on t he right with possible right effusion. Underlying infiltrate not excluded. Impression: Cardiomegaly and edema, worse on the right. Effusion may be present on the right. Underly ing infiltrate not excluded. Follow-up to resolution. Reported By:
[2017-04-30] MEDS: FORTAZ or TAZICEF INJ 1 GM in NS 50 ML IV 50 ML IV SCH ×3 (06:52→21:00)
[2017-04-30 06:54] LABS: BASOPHILS % (AUTO) 0 % (0.2-1.0); EOSINOPHILS # (AUTO) 0.1 x10^3/uL (0.0-0.2); EOSINOPHILS % (AUTO) 0.2 % (0.9-2.9); HEMATOCRIT 20.4 % (36.0-47.0); LYMPHOCYTES # (AUTO) 0.2 X10^3/uL (1.3-2.9); LYMPHOCYTES % (AUTO) 0.3 % (21.0-51.0); MEAN CORPUSCULAR HEMOGLOBIN 29.6 pg (27.0-34.0); MEAN CORPUSCULAR HGB CONC 29.9 g/dL (33.0-35.0); MEAN CORPUSCULAR VOLUME 99.1 fL (80.0-100.0); MEAN PLATELET VOLUME 9.4 fL (7.4-11.0); MONOCYTES # (AUTO) 50.8 x10^3/uL (0.3-0.8); MONOCYTES % (AUTO) 72.4 % (0.0-13.0); NEUTROPHILS % (AUTO) 27.1 % (42.0-75.0); PLATELET COUNT 153 X10^3/uL (150.0-450.0); RED BLOOD COUNT 2.06 X10^6/uL (3.5-5.4); RED CELL DISTRIBUTION WIDTH 18.6 % (11.6-16.5)
[2017-04-30 07:05] LABS: ALBUMIN 2.2 g/dL (3.4-5.0); CALCIUM 7.6 mg/dL (8.5-10.1); CARBON DIOXIDE 23.9 mmol/L (21-32); CREATININE 1.79 mg/dL (0.55-1.02); TOTAL PROTEIN 4.7 g/dL (6.4-8.2)
[2017-04-30 07:14] LABS: ABG BASE EXCESS -6.5 mmol/L (-2.0-2.0); ABG HCO3 20.2 mmol/L (22-26)
[2017-04-30 07:15] LABS: ABG ALLEN TEST POS
[2017-04-30 07:18] LABS: HEMOGLOBIN 6.1 g/dL (12.0-16.0); WHITE BLOOD COUNT 70.1 X10^3/uL (3.6-10.0)
[2017-04-30] MEDS: BACTRIM DS TAB PO SCH ×2 (08:17→20:01)
[2017-04-30] MEDS: ASPIRIN EC 81 MG PO SCH (08:17)
[2017-04-30] MEDS: MILK OF MAGNESIA PO SCH (08:18)
[2017-04-30] MEDS: PROzac PO SCH (08:18)
[2017-04-30] MEDS: HEMOCYTE-PLUS PO SCH (08:18)
[2017-04-30] MEDS: LOPRESSOR TAB 25 MG PO SCH (08:18)
[2017-04-30] MEDS: MEGACE PO SCH ×2 (08:18→20:02)
[2017-04-30] MEDS: FOLIC ACID TAB 1 MG PO SCH (08:18)
[2017-04-30] MEDS: XANAX PO SCH ×2 (08:19→20:01)
[2017-04-30] MEDS: SYNTHROID 25 mcg TAB PO SCH (08:19)
[2017-04-30] MEDS: ROBITUSSIN DM PO SCH ×4 (08:19→20:02)
[2017-04-30] MEDS: DOPAMINE IV PREMIX 400 MG/250 ML 400 MG/250 ML BAG IV PRN (08:39)
[2017-04-30] MEDS ORDERED: LOPRESSOR INJ 5 MG AMP IVP SCH (10:00)
[2017-04-30] MEDS: LOPRESSOR INJ 5 MG AMP IVP SCH ×2 (11:00→18:19)
--- NOTE | 2017-04-30 11:20 | RAD ---
History: Central venous line placement. Exam: Single-view chest. Comparison: 04/30/2017. Findings: The trachea is midline. The cardiomediastinal silhouette is enlarged status post median sternotomy on this exam. There is an endotracheal tube seen in place whose tip terminates at the aortic knob. Ther e is a nasogastric tube which extends beyond the GE junction. The cardiac silhouette is enlarged. The re has been insertion of right-sided subclavian CVL is tip overlies the right atrium or IVC. This nohemi l need retraction by 5 cm for improved positioning in the SVC. Airspace disease throughout the right lung and in the left mid lung zone and left lower lobe is unchanged with background COPD/interstitial lung disease. Small volume effusions are also seen in the lung bases. These findings probably reflec t a component of CHF/edema with pneumonia not completely excluded. This would need clinical context. No other cardiopulmonary changes are observed. The bones stable. Impression: Right-sided subclavian CVL observed whose tip terminates overlying the right atrium and which would b enefit from retraction approximately 5 cm for improved positioning in the SVC, as above. No pneumotho rax observed. ET and NG tubes are in good positions. Cardiomegaly with unchanged right lung zone airspace disease, left mid lung zone and left lower lobe airspace disease, small volume effusions, and background interstitial disease. Reported By:
[2017-04-30] MEDS ORDERED: NS 250 ML IV 250 ML IV ONE (11:23)
[2017-04-30] MEDS: LASIX IVP SCH ×2 (11:31→20:25)
[2017-04-30] MEDS: VANCOMYCIN HCL 500 MG VIAL 750 MG in D5W 250 ML IV 250 ML IV SCH ×2 (11:31→22:28)
[2017-04-30] MEDS: ALBUMIN HUMAN 25%- 100ML 200 ML IV SCH (11:31)
[2017-04-30] MEDS: LACRI-LUBE S.O.P. AFFEYE SCH ×2 (12:30→23:08)
[2017-04-30] MEDS ORDERED: TYLENOL SUPP 650 MG PR ONE ×2 (14:00→22:32)
[2017-04-30] MEDS ORDERED: STERILE WATER IRRIGATION IR ONE (18:24)
[2017-04-30] MEDS: NS 500 ML IV 500 ML IV ONE ×2 (19:58→23:52)
[2017-04-30] MEDS: SNACK - Diabetic Appropriate PO SCH (20:00)
[2017-04-30] MEDS: COLACE CAP 100 MG PO SCH (20:01)
[2017-04-30] MEDS: LIPITOR TAB 40 MG PO SCH (20:02)
--- NOTE | 2017-04-30 20:44 | PCM.PROG ---
Progress Note - Progress Note for Day of Date: 04/27/17 - Subjective Subjective: WAS ADMITTED FOR LEUKOCYTOSIS, PNEUMONIA, A URINARY TRACT INFECTION, AND ALTERED MENTAL STATUS. TODAY, SHE IS ALERT AND ORIENTED, LYING IN BED ON MORNING ROUNDS. PATIENTS FAMILY IS AT BEDSIDE. SHE CONTINUES WITH COMPLAINTS OF SHORTNESS OF BREATH, PRODUCTIVE COUGH, AND GENERALIZED WEAKNESS. SHE DENIES IMPROVEMENT IN SYMPTOMS SINCE YESTERDAY. ON EXAMINATION, HEART IS REGULAR IN RATE AND RHYTHM. BILATERAL LUNGS CONTINUE WITH SCATTERED WHEEZING AND RONCHI THROUGHOUT. SHE IS CURRENTLY UTILIZING OXYGEN VIA NASAL CANNULA AT 2L /MIN. ABDOMEN IS ROUND, SOFT, AND NOTED WITH MILD SUPRAPUBIC TENDERNESS. SHE CONTINUES WITH TRACE EDEMA TO BILATERAL LOWER EXTREMITIES. THERE IS NORMAL RANGE OF MOTION NOTED. HER VITALS THIS MORNING ARE 98.7-80-20-100%-123/58. LABS WERE OBTAINED. ABNORMAL LAB VALUES INCLUDE THE FOLLOWING: WBC INCREASED FROM 47.0 TO 54.5, RBC 2.59, HGB 7.7, HCT 24.4, PLT COUNT 135, CHLORIDE 108, BUN 22, CREATININE 1.08, CALCIUM 7.7, AST 45, ALK PHOS 120, TOTAL PROTEIN 4.8, ALBUMIN 1.9. SPUTUM CULTURE REPORTS GROWTH OF MRSA. IT IS RESISTANT TO THE LEVAQUIN THAT SHE IS CURRENTLY ON. WE WILL DISCONTINUE THIS AND START VANCOMYCIN 1GM IV Q12H. BLOOD AND URINE CULTURES REPORT NO GROWTH. WE OBTAINED A CHEST XRAY TODAY. IT REPORTED CONGESTIVE HEART FAILURE UNCHANGED FROM THE PRIOR EXAMINATION. LIKELY BILATERAL SMALL PLEURAL EFFUSIONS, STABLE. WE ARE AWAITING BLOOD SMEAR PATHOLOGY REPORT. OTHERWISE, WE WILL CONTINUE WITH CURRENT PLAN OF CARE TODAY. WE PLAN TO FOLLOW UP WITH AM LABS AND CHEST XRAY AND CONTINUE TO MONITOR PATIENT. - Past Medical Family Social History Past Med/Fam/Surg Hx: No changes since H&P Allergies: Allergies No Known Drug Allergies Allergy (Verified 04/13/17 18:06) - Review of Systems ROS: No change since H&P - Vital Signs and I&O's Vital Signs: Temperature 101.8 F Pulse Rate [Apical] 158 Pulse Rate 109 Respiratory Rate 25 Blood Pressure [Left Arm] 138/61 Blood Pressure [Right Arm] 132/63 Blood Pressure 146/67 O2 Sat by Pulse Oximetry 100 Intake and Output: Intake & Output 04/28/17 04/29/17 04/30/17 05/01/17 11:59 11:59 11:59 11:59 Intake Total 3102 0719 4805 1580 Output Total 375 1175 1350 420 Balance 2727 1264 3455 1160 - Physical Exam Oriented: Normal Eyes: negative: Normal, Blurred Vision, Diplopia, Discharge, Pain, Redness, Photophobia, Other Ear: Normal. negative: Right, Left, Swelling, Ecchymosis, Hemotypanum, Abrasion , Laceration Nose: Normal Throat: Normal. negative: Tonsillar Hypertrophy, Red, Exudate, Dry, Other Respiratory: Right, Left, Generalized, Wheezes, Rhonchi Cardiovascular: Edema (bilateral lower extremity trace edema ) : Normal Auscultation: Bowel Sounds: Normal Palpation: Normal Tenderness: Suprapubic, Mild. negative: Rebound, Guarding, Rigidity Skin: Wound Musculoskeletal: Instability Psychiatric: Normal Mood Description: Calm Affect: Normal Speech Pattern: Clear, Appropriate - Laboratory and Diagnostics Result Diagrams: 04/30/17 06:20 04/30/17 06:20 Labs: 04/30/17 07:19 Sputum - Endotracheal Wash - Final 04/23/17 15:40 Blood Blood Culture - Final 04/23/17 15:35 Blood Blood Culture - Final 04/23/17 17:00 Sputum - Expectorated Sputum Sputum Culture - Final Methicillin Resis Staph Aureus Stenotrophomonas Maltophilia 04/23/17 17:00 Sputum - Expectorated Sputum - Final 04/23/17 16:01 Urine,Catheterized Urine Culture - Final Laboratory WBC 70.1 X10^3/uL (3.6-10.0) H* 04/30/17 06:20 RBC 2.06 X10^6/uL (3.5-5.4) L 04/30/17 06:20 Hgb 6.1 g/dL (12.0-16.0) L* D 04/30/17 06:20 Hct 20.4 % (36.0-47.0) L 04/30/17 06:20 MCV 99.1 fL (80.0-100.0) 04/30/17 06:20 MCH 29.6 pg (27.0-34.0) 04/30/17 06:20 MCHC 29.9 g/dL (33.0-35.0) L 04/30/17 06:20 RDW 18.6 % (11.6-16.5) H 04/30/17 06:20 Plt Count 153 X10^3/uL (150.0-450.0) 04/30/17 06:20 Plt Count Comment Adequate (ADEQUATE) 04/25/17 05:49 MPV 9.4 fL (7.4-11.0) 04/30/17 06:20 Neut % 27.1 % (42.0-75.0) L 04/30/17 06:20 Lymph % 0.3 % (21.0-51.0) L 04/30/17 06:20 [place] % 72.4 % (0.0-13.0) H 04/30/17 06:20 Eos % 0.2 % (0.9-2.9) L 04/30/17 06:20 Baso % 0 % (0.2-1.0) L 04/30/17 06:20 Neut # 19.0 x10^3/uL (2.2-4.8) H 04/30/17 06:20 Lymph # 0.2 X10^3/uL (1.3-2.9) L 04/30/17 06:20 [place] # 50.8 x10^3/uL (0.3-0.8) H 04/30/17 06:20 Eos # 0.1 x10^3/uL (0.0-0.2) 04/30/17 06:20 Baso # 0.0 X10^3/uL (0.0-0.1) 04/30/17 06:20 Absolute Nucleated RBC 1.2 /100WBC 04/30/17 06:20 Total Counted 100 04/25/17 05:49 Neutrophils % (Manual) 18 % (39-76) L 04/25/17 05:49 Band Neutrophils % 2 % (0-10) 04/24/17 05:45 Lymphocytes % (Manual) 12 % (13-43) L 04/25/17 05:49 Monocytes % (Manual) 4 % (4-9) 04/25/17 05:49 Eosinophils % (Manual) Cancelled 04/30/17 06:20 Basophils % (Manual) Cancelled 04/30/17 06:20 Metamyelocytes % Cancelled 04/30/17 06:20 Myelocytes % Cancelled 04/30/17 06:20 Promyelocytes % Cancelled 04/30/17 06:20 Nucleated RBCs Cancelled 04/30/17 06:20 Atypical Lymphocytes 56 04/25/17 05:49 Blast Cells 10 (-1) H 04/25/17 05:49 Smudge Cells Cancelled 04/30/17 06:20 Toxic Granulation Cancelled 04/30/17 06:20 Dohle Bodies Cancelled 04/30/17 06:20 Donaldo Rods Cancelled 04/30/17 06:20 Plt Clumps, EDTA Cancelled 04/30/17 06:20 Giant Platelets Cancelled 04/30/17 06:20 Plt Morphology Comment Normal (NORMAL) 04/25/17 05:49 RBC Morphology Normal (NORMAL) 04/25/17 05:49 Dimorphic RBCs Cancelled 04/30/17 06:20 Polychromasia Cancelled 04/30/17 06:20 Hypochromasia Slight A 04/23/17 15:35 Poikilocytosis Cancelled 04/30/17 06:20 Basophilic Stippling Cancelled 04/30/17 06:20 Anisocytosis 1+ A 04/23/17 15:35 Microcytosis Slight A 04/23/17 15:35 Macrocytosis Slight A 04/23/17 15:35 Spherocytes Cancelled 04/30/17 06:20 Pappenheimer Bodies Cancelled 04/30/17 06:20 Sickle Cells Cancelled 04/30/17 06:20 Target Cells Cancelled 04/30/17 06:20 Tear Drop Cells Cancelled 04/30/17 06:20 Ovalocytes Cancelled 04/30/17 06:20 Stomatocytes Cancelled 04/30/17 06:20 Helmet Cells Cancelled 04/30/17 06:20 [place] Bodies Cancelled 04/30/17 06:20 [place] Rings Cancelled 04/30/17 06:20 [place] Cells Cancelled 04/30/17 06:20 Crenated Cell Cancelled 04/30/17 06:20 Acanthocytes (Spur) Cancelled 04/30/17 06:20 Rouleaux Cancelled 04/30/17 06:20 Schistocytes Cancelled 04/30/17 06:20 Smear Path Review See note 04/23/17 15:35 INR Target Range - 04/23/17 15:35 INR 1.04 (0.8-1.3) 04/23/17 15:35 PTT 30.3 SECONDS (22.9-36.5) 04/23/17 15:35 PTT Comment - 04/23/17 15:35 D-Dimer 843 ng/mL (0-400) H* 04/23/17 15:35 Sample Site Lr 04/30/17 07:10 ABG pH 7.270 (7.35-7.45) L 04/30/17 07:10 ABG pCO2 44.0 mmHg (35.0-45.0) 04/30/17 07:10 ABG pO2 287.0 mmHg (80.0-100.0) H 04/30/17 07:10 ABG HCO3 20.2 mmol/L (22-26) L 04/30/17 07:10 ABG O2 Saturation 100.0 % (90-100) 04/30/17 07:10 ABG Base Excess -6.5 mmol/L (-2.0-2.0) L 04/30/17 07:10 Bar Test Pos 04/30/17 07:10 A-a Gradient 371.0 mmHg 04/30/17 07:10 FiO2 100.000 04/30/17 07:10 Blood Gas Comments Pt cesar well. cdn 04/30/17 07:10 Sodium 144 mmol/L (136-145) 04/30/17 06:20 Corrected Sodium 147 mmol/L (136-145) H 04/30/17 06:20 Potassium 5.0 mmol/L (3.5-5.1) 04/30/17 06:20 Chloride 108 mmol/L (98-107) H 04/30/17 06:20 Carbon Dioxide 23.9 mmol/L (21-32) 04/30/17 06:20 BUN 31 mg/dL (7-18) H 04/30/17 06:20 Creatinine 1.79 mg/dL (0.55-1.02) H 04/30/17 06:20 Est GFR (MDRD) Af Amer 35 (>60) L 04/30/17 06:20 Est GFR (MDRD) Non-Af 29 (>60) L 04/30/17 06:20 Glucose 230 mg/dL (65-99) H 04/30/17 06:20 POC Glucose (mg/dL) 178 mg/dL (65-99) H 04/30/17 20:23 Lactic Acid 1.2 mmol/L (0.4-2.0) 04/23/17 15:35 Calcium 7.6 mg/dL (8.5-10.1) L 04/30/17 06:20 Corrected Calcium 9.0 mg/dL (8.5-10.1) 04/30/17 06:20 Total Bilirubin 0.30 mg/dL (0.2-1.0) 04/30/17 06:20 AST 113 Units/L (15-37) H 04/30/17 06:20 ALT 43 Units/L (12-78) 04/30/17 06:20 Alkaline Phosphatase 101 Units/L (46-116) 04/30/17 06:20 Creatine Kinase 103 Units/L (26-192) 04/23/17 15:35 CK-MB (CK-2) < 1.0 ng/mL (0-4.0) 04/23/17 15:35 CK/CKMB % Calc 1.0 % (<4) 04/23/17 15:35 Troponin I 0.02 ng/mL (0-1.5) 04/23/17 15:35 B-Natriuretic Peptide 1620 pg/mL (0-79) H* 04/23/17 15:35 Total Protein 4.7 g/dL (6.4-8.2) L 04/30/17 06:20 Albumin 2.2 g/dL (3.4-5.0) L 04/30/17 06:20 Globulin 2.5 g/dL (2.5-4.5) 04/30/17 06:20 Albumin/Globulin Ratio 0.9 Ratio (1.1-2.1) L 04/30/17 06:20 Specimen Type Catherized urine 04/23/17 16:01 Urine Color Yellow (YELLOW) 04/23/17 16:01 Urine Appearance Hazy (CLEAR) 04/23/17 16:01 Urine pH 5.0 (5.0 - 8.0) 04/23/17 16:01 Ur Specific [place] 1.025 (1.000-1.030) 04/23/17 16:01 Urine Protein 3+ (NEGATIVE) 04/23/17 16:01 Urine Glucose (UA) Negative (NEGATIVE) 04/23/17 16:01 Urine Ketones Negative (NEGATIVE) 04/23/17 16:01 Urine Occult Blood 2+ (NEGATIVE) 04/23/17 16:01 Urine Nitrite Negative (NEGATIVE) 04/23/17 16:01 Urine Bilirubin Negative (NEGATIVE) 04/23/17 16:01 Urine Urobilinogen Normal (NORMAL) 04/23/17 16:01 Ur Leukocyte Esterase 3+ (NEGATIVE) 04/23/17 16:01 Urine RBC 0-5 /HPF (NEGATIVE) 04/23/17 16:01 Urine WBC 6-10 /HPF (NEGATIVE) 04/23/17 16:01 Ur Squamous Epith Cells Negative /HPF (NEGATIVE) 04/23/17 16:01 Urine Bacteria 1+ /HPF (NEGATIVE) 04/23/17 16:01 Ur Culture Indicated? Yes/culture set up 04/23/17 16:01 Vancomycin Trough 21.5 ug/mL (15-20) H* 04/28/17 21:15 Miscellaneous Test Leukemia panel flow 04/25/17 11:10 Blood Type O POSITIVE 04/30/17 06:50 Antibody Screen Negative 04/30/17 06:50 Crossmatch See Detail 04/30/17 06:50 - Plan (1) Pneumonia Status: Acute Qualifiers: Pneumonia type: due to methicillin-resistant Staphylococcus aureus (MRSA) Laterality: bilateral Lung location: lower lobe of lung Qualified Code(s): J15.212 - Pneumonia due to Methicillin resistant Staphylococcus aureus Plan: pneumonia protocol, levaquin 750mg iv daily, fortaz 1gm iv q8h, respiratory tx, supplemental oxygen, continue to monitor (2) Altered mental state Status: Acute Qualifiers: Altered mental status type: transient alteration of awareness Qualified Code(s): R40.4 - Transient alteration of awareness Plan: treat uti, continue to monitor (3) Leukemoid reaction Status: Acute Plan: IV abx, consult , continue to monitor (4) Urinary tract infection Status: Acute Qualifiers: Urinary tract infection type: acute cystitis Hematuria presence: with hematuria Qualified Code(s): N30.01 - Acute cystitis with hematuria Plan: fortaz 1gm iv q8h, levaquin 750mg iv daily, continue to monitor (5) Congestive heart failure Status: Acute Qualifiers: Congestive heart failure type: unspecified Congestive heart failure chronicity: acute on chronic Qualified Code(s): I50.9 - Heart failure, unspecified Plan: LASIX 40MG IV BID X 2 DOSES, CONTINUE HEART FAILURE MEDS, CONTINUE RESPIRATORY TX AND SUPPLEMENTAL OXYGEN, CONTINUE TO MONITOR
[2017-04-30] MEDS ORDERED: PHARMACY COMMENT IV SCH (20:45)
--- NOTE | 2017-04-30 21:40 | PCM.PROG ---
Progress Note - Progress Note for Day of Date: 04/28/17 - Subjective Subjective: WAS ADMITTED FOR LEUKOCYTOSIS, PNEUMONIA, A URINARY TRACT INFECTION, AND ALTERED MENTAL STATUS. TODAY, SHE IS ALERT AND ORIENTED, LYING IN BED ON MORNING ROUNDS. PATIENTS FAMILY IS AT BEDSIDE. SHE REPORTS INCREASED SHORTNESS OF BREATH THIS MORNING, PRODUCTIVE COUGH, AND GENERALIZED WEAKNESS. SHE DENIES IMPROVEMENT IN SYMPTOMS SINCE YESTERDAY. ON EXAMINATION, HEART IS REGULAR IN RATE AND RHYTHM. BILATERAL LUNGS CONTINUE WITH SCATTERED WHEEZING AND RONCHI THROUGHOUT. SHE IS CURRENTLY UTILIZING OXYGEN VIA NASAL CANNULA AT 2L /MIN. ABDOMEN IS ROUND, SOFT, AND NOTED WITH MILD SUPRAPUBIC TENDERNESS. SHE CONTINUES WITH TRACE EDEMA TO BILATERAL LOWER EXTREMITIES. THERE IS NORMAL RANGE OF MOTION NOTED. HER VITALS THIS MORNING ARE 98.6-77-26-100%-135/64. LABS WERE OBTAINED. ABNORMAL LAB VALUES INCLUDE THE FOLLOWING: WBC 62.1, RBC 2.75, HGB 8.3, HCT 26.2, BUN 23, CREATININE 1.16, GLUCOSE 106, CALCIUM 7.9, AST 51, ALK PHOS 146, TOTAL PROTEIN 5.1, ALBUMIN 1.9. TODAY, SPUTUM CULTURE ALSO REPORTED GROWTH OF STENOTROPHOMONAS MALTOPHILIA. IT IS NOT SENSITIVE TO THE ANTIBIOTICS THAT SHE IS CURRENTLY ON FOR THE MRSA, SO WE WILL START BACTRIM TODAY. CHEST XRAY REPORTS CARDIOMEGALY WITH SIGNS OF CHF. BILATERAL PERIHILAR EDEMA IS PRESENT WITH INCREASING EDEMA IN THE RIGHT LOWER LOBE. RIGHT PLEURAL EFFUSION HAS INCREASED. LEFT PLEURAL EFFUSION IS LIKELY UNCHANGED. PERIPHERAL SMEAR SUGGESTS TO CONSIDER PERIPHERAL BLOOD INVOLVEMENT BY NON-HODGKIN LYMPHOMA. WE WILL DISCUSS FINDINGS WITH . TODAY, WE WILL ADMINISTER LASIX 40MG IV X 2 DOSES AND START BACTRIM DS 1 TAB PO BID. OTHERWISE, WE WILL CONTINUE WITH CURRENT PLAN OF CARE TODAY. WE PLAN TO FOLLOW UP WITH AM LABS AND CHEST XRAY AND CONTINUE TO MONITOR PATIENT. - Past Medical Family Social History Past Med/Fam/Surg Hx: No changes since H&P Allergies: Allergies No Known Drug Allergies Allergy (Verified 04/13/17 18:06) - Review of Systems ROS: No change since H&P - Vital Signs and I&O's Vital Signs: Temperature 101.8 F Pulse Rate [Apical] 158 Pulse Rate 137 Respiratory Rate 25 Blood Pressure [Left Arm] 138/61 Blood Pressure [Right Arm] 132/63 Blood Pressure 146/67 O2 Sat by Pulse Oximetry 100 Intake and Output: Intake & Output 04/28/17 04/29/17 04/30/17 05/01/17 11:59 11:59 11:59 11:59 Intake Total 3102 2439 4805 1580 Output Total 375 1175 1350 420 Balance 2727 1264 3455 1160 - Physical Exam Oriented: Normal Eyes: negative: Normal, Blurred Vision, Diplopia, Discharge, Pain, Redness, Photophobia, Other Ear: Normal. negative: Right, Left, Swelling, Ecchymosis, Hemotypanum, Abrasion , Laceration Nose: Normal Throat: Normal. negative: Tonsillar Hypertrophy, Red, Exudate, Dry, Other Respiratory: Right, Left, Generalized, Wheezes, Rhonchi Cardiovascular: Edema (bilateral lower extremity trace edema ) : Normal Auscultation: Bowel Sounds: Normal Palpation: Normal Tenderness: Suprapubic, Mild. negative: Rebound, Guarding, Rigidity Skin: Wound Musculoskeletal: Instability Psychiatric: Normal Mood Description: Calm Affect: Normal Speech Pattern: Clear, Appropriate - Laboratory and Diagnostics Result Diagrams: 04/30/17 06:20 04/30/17 06:20 Labs: 04/30/17 07:19 Sputum - Endotracheal Wash - Final 04/23/17 15:40 Blood Blood Culture - Final 04/23/17 15:35 Blood Blood Culture - Final 04/23/17 17:00 Sputum - Expectorated Sputum Sputum Culture - Final Methicillin Resis Staph Aureus Stenotrophomonas Maltophilia 04/23/17 17:00 Sputum - Expectorated Sputum - Final 04/23/17 16:01 Urine,Catheterized Urine Culture - Final Laboratory WBC 70.1 X10^3/uL (3.6-10.0) H* 04/30/17 06:20 RBC 2.06 X10^6/uL (3.5-5.4) L 04/30/17 06:20 Hgb 6.1 g/dL (12.0-16.0) L* D 04/30/17 06:20 Hct 20.4 % (36.0-47.0) L 04/30/17 06:20 MCV 99.1 fL (80.0-100.0) 04/30/17 06:20 MCH 29.6 pg (27.0-34.0) 04/30/17 06:20 MCHC 29.9 g/dL (33.0-35.0) L 04/30/17 06:20 RDW 18.6 % (11.6-16.5) H 04/30/17 06:20 Plt Count 153 X10^3/uL (150.0-450.0) 04/30/17 06:20 Plt Count Comment Adequate (ADEQUATE) 04/25/17 05:49 MPV 9.4 fL (7.4-11.0) 04/30/17 06:20 Neut % 27.1 % (42.0-75.0) L 04/30/17 06:20 Lymph % 0.3 % (21.0-51.0) L 04/30/17 06:20 [place] % 72.4 % (0.0-13.0) H 04/30/17 06:20 Eos % 0.2 % (0.9-2.9) L 04/30/17 06:20 Baso % 0 % (0.2-1.0) L 04/30/17 06:20 Neut # 19.0 x10^3/uL (2.2-4.8) H 04/30/17 06:20 Lymph # 0.2 X10^3/uL (1.3-2.9) L 04/30/17 06:20 [place] # 50.8 x10^3/uL (0.3-0.8) H 04/30/17 06:20 Eos # 0.1 x10^3/uL (0.0-0.2) 04/30/17 06:20 Baso # 0.0 X10^3/uL (0.0-0.1) 04/30/17 06:20 Absolute Nucleated RBC 1.2 /100WBC 04/30/17 06:20 Total Counted 100 04/25/17 05:49 Neutrophils % (Manual) 18 % (39-76) L 04/25/17 05:49 Band Neutrophils % 2 % (0-10) 04/24/17 05:45 Lymphocytes % (Manual) 12 % (13-43) L 04/25/17 05:49 Monocytes % (Manual) 4 % (4-9) 04/25/17 05:49 Eosinophils % (Manual) Cancelled 04/30/17 06:20 Basophils % (Manual) Cancelled 04/30/17 06:20 Metamyelocytes % Cancelled 04/30/17 06:20 Myelocytes % Cancelled 04/30/17 06:20 Promyelocytes % Cancelled 04/30/17 06:20 Nucleated RBCs Cancelled 04/30/17 06:20 Atypical Lymphocytes 56 04/25/17 05:49 Blast Cells 10 (-1) H 04/25/17 05:49 Smudge Cells Cancelled 04/30/17 06:20 Toxic Granulation Cancelled 04/30/17 06:20 Dohle Bodies Cancelled 04/30/17 06:20 Donaldo Rods Cancelled 04/30/17 06:20 Plt Clumps, EDTA Cancelled 04/30/17 06:20 Giant Platelets Cancelled 04/30/17 06:20 Plt Morphology Comment Normal (NORMAL) 04/25/17 05:49 RBC Morphology Normal (NORMAL) 04/25/17 05:49 Dimorphic RBCs Cancelled 04/30/17 06:20 Polychromasia Cancelled 04/30/17 06:20 Hypochromasia Slight A 04/23/17 15:35 Poikilocytosis Cancelled 04/30/17 06:20 Basophilic Stippling Cancelled 04/30/17 06:20 Anisocytosis 1+ A 04/23/17 15:35 Microcytosis Slight A 04/23/17 15:35 Macrocytosis Slight A 04/23/17 15:35 Spherocytes Cancelled 04/30/17 06:20 Pappenheimer Bodies Cancelled 04/30/17 06:20 Sickle Cells Cancelled 04/30/17 06:20 Target Cells Cancelled 04/30/17 06:20 Tear Drop Cells Cancelled 04/30/17 06:20 Ovalocytes Cancelled 04/30/17 06:20 Stomatocytes Cancelled 04/30/17 06:20 Helmet Cells Cancelled 04/30/17 06:20 [place] Bodies Cancelled 04/30/17 06:20 [place] Rings Cancelled 04/30/17 06:20 [place] Cells Cancelled 04/30/17 06:20 Crenated Cell Cancelled 04/30/17 06:20 Acanthocytes (Spur) Cancelled 04/30/17 06:20 Rouleaux Cancelled 04/30/17 06:20 Schistocytes Cancelled 04/30/17 06:20 Smear Path Review See note 04/23/17 15:35 INR Target Range - 04/23/17 15:35 INR 1.04 (0.8-1.3) 04/23/17 15:35 PTT 30.3 SECONDS (22.9-36.5) 04/23/17 15:35 PTT Comment - 04/23/17 15:35 D-Dimer 843 ng/mL (0-400) H* 04/23/17 15:35 Sample Site Lr 04/30/17 07:10 ABG pH 7.270 (7.35-7.45) L 04/30/17 07:10 ABG pCO2 44.0 mmHg (35.0-45.0) 04/30/17 07:10 ABG pO2 287.0 mmHg (80.0-100.0) H 04/30/17 07:10 ABG HCO3 20.2 mmol/L (22-26) L 04/30/17 07:10 ABG O2 Saturation 100.0 % (90-100) 04/30/17 07:10 ABG Base Excess -6.5 mmol/L (-2.0-2.0) L 04/30/17 07:10 Bar Test Pos 04/30/17 07:10 A-a Gradient 371.0 mmHg 04/30/17 07:10 FiO2 100.000 04/30/17 07:10 Blood Gas Comments Pt cesar well. cdn 04/30/17 07:10 Sodium 144 mmol/L (136-145) 04/30/17 06:20 Corrected Sodium 147 mmol/L (136-145) H 04/30/17 06:20 Potassium 5.0 mmol/L (3.5-5.1) 04/30/17 06:20 Chloride 108 mmol/L (98-107) H 04/30/17 06:20 Carbon Dioxide 23.9 mmol/L (21-32) 04/30/17 06:20 BUN 31 mg/dL (7-18) H 04/30/17 06:20 Creatinine 1.79 mg/dL (0.55-1.02) H 04/30/17 06:20 Est GFR (MDRD) Af Amer 35 (>60) L 04/30/17 06:20 Est GFR (MDRD) Non-Af 29 (>60) L 04/30/17 06:20 Glucose 230 mg/dL (65-99) H 04/30/17 06:20 POC Glucose (mg/dL) 178 mg/dL (65-99) H 04/30/17 20:23 Lactic Acid 1.2 mmol/L (0.4-2.0) 04/23/17 15:35 Calcium 7.6 mg/dL (8.5-10.1) L 04/30/17 06:20 Corrected Calcium 9.0 mg/dL (8.5-10.1) 04/30/17 06:20 Total Bilirubin 0.30 mg/dL (0.2-1.0) 04/30/17 06:20 AST 113 Units/L (15-37) H 04/30/17 06:20 ALT 43 Units/L (12-78) 04/30/17 06:20 Alkaline Phosphatase 101 Units/L (46-116) 04/30/17 06:20 Creatine Kinase 103 Units/L (26-192) 04/23/17 15:35 CK-MB (CK-2) < 1.0 ng/mL (0-4.0) 04/23/17 15:35 CK/CKMB % Calc 1.0 % (<4) 04/23/17 15:35 Troponin I 0.02 ng/mL (0-1.5) 04/23/17 15:35 B-Natriuretic Peptide 1620 pg/mL (0-79) H* 04/23/17 15:35 Total Protein 4.7 g/dL (6.4-8.2) L 04/30/17 06:20 Albumin 2.2 g/dL (3.4-5.0) L 04/30/17 06:20 Globulin 2.5 g/dL (2.5-4.5) 04/30/17 06:20 Albumin/Globulin Ratio 0.9 Ratio (1.1-2.1) L 04/30/17 06:20 Specimen Type Catherized urine 04/23/17 16:01 Urine Color Yellow (YELLOW) 04/23/17 16:01 Urine Appearance Hazy (CLEAR) 04/23/17 16:01 Urine pH 5.0 (5.0 - 8.0) 04/23/17 16:01 Ur Specific [place] 1.025 (1.000-1.030) 04/23/17 16:01 Urine Protein 3+ (NEGATIVE) 04/23/17 16:01 Urine Glucose (UA) Negative (NEGATIVE) 04/23/17 16:01 Urine Ketones Negative (NEGATIVE) 04/23/17 16:01 Urine Occult Blood 2+ (NEGATIVE) 04/23/17 16:01 Urine Nitrite Negative (NEGATIVE) 04/23/17 16:01 Urine Bilirubin Negative (NEGATIVE) 04/23/17 16:01 Urine Urobilinogen Normal (NORMAL) 04/23/17 16:01 Ur Leukocyte Esterase 3+ (NEGATIVE) 04/23/17 16:01 Urine RBC 0-5 /HPF (NEGATIVE) 04/23/17 16:01 Urine WBC 6-10 /HPF (NEGATIVE) 04/23/17 16:01 Ur Squamous Epith Cells Negative /HPF (NEGATIVE) 04/23/17 16:01 Urine Bacteria 1+ /HPF (NEGATIVE) 04/23/17 16:01 Ur Culture Indicated? Yes/culture set up 04/23/17 16:01 Vancomycin Trough 21.5 ug/mL (15-20) H* 04/28/17 21:15 Miscellaneous Test Leukemia panel flow 04/25/17 11:10 Blood Type O POSITIVE 04/30/17 06:50 Antibody Screen Negative 04/30/17 06:50 Crossmatch See Detail 04/30/17 06:50 - Plan (1) Pneumonia Status: Acute Qualifiers: Pneumonia type: due to methicillin-resistant Staphylococcus aureus (MRSA) Laterality: bilateral Lung location: lower lobe of lung Qualified Code(s): J15.212 - Pneumonia due to Methicillin resistant Staphylococcus aureus Plan: pneumonia protocol, levaquin 750mg iv daily, fortaz 1gm iv q8h, respiratory tx, supplemental oxygen, continue to monitor (2) Infection with Stenotrophomonas maltophilia resistant to multiple drugs Status: Acute Plan: BACTRIM DS 1 TAB PO BID, CONTINUE TO MONITOR (3) Altered mental state Status: Acute Qualifiers: Altered mental status type: transient alteration of awareness Qualified Code(s): R40.4 - Transient alteration of awareness Plan: treat uti, continue to monitor (4) Leukemoid reaction Status: Acute Plan: IV abx, consult , continue to monitor (5) Urinary tract infection Status: Acute Qualifiers: Urinary tract infection type: acute cystitis Hematuria presence: with hematuria Qualified Code(s): N30.01 - Acute cystitis with hematuria Plan: fortaz 1gm iv q8h, levaquin 750mg iv daily, continue to monitor (6) Congestive heart failure Status: Acute Qualifiers: Congestive heart failure type: unspecified Congestive heart failure chronicity: acute on chronic Qualified Code(s): I50.9 - Heart failure, unspecified Plan: LASIX 40MG IV BID X 2 DOSES, CONTINUE HEART FAILURE MEDS, CONTINUE RESPIRATORY TX AND SUPPLEMENTAL OXYGEN, CONTINUE TO MONITOR
[2017-04-30 22:00] LABS: CREATININE 2.14 mg/dL (0.55-1.02)
[2017-04-30 22:14] LABS: VANCOMYCIN,TROUGH 39.9 ug/mL (15-20)
[2017-04-30] MEDS: BENADRYL INJ 50 MG VIAL IVP PRN (22:55)
[2017-05-01] MEDS: DUONEB 0.5 MG/3 MG NEB SCH ×7 (00:45→20:19)
[2017-05-01] MEDS: DOPAMINE IV PREMIX 400 MG/250 ML 400 MG/250 ML BAG IV PRN (04:18)
[2017-05-01] MEDS: FORTAZ or TAZICEF INJ 1 GM in NS 50 ML IV 50 ML IV SCH ×3 (05:17→21:00)
[2017-05-01 06:17] LABS: ABG BASE EXCESS -1.7 mmol/L (-2.0-2.0); ABG HCO3 21.5 mmol/L (22-26)
[2017-05-01 06:18] LABS: ABG ALLEN TEST POS
[2017-05-01 06:33] LABS: BASOPHILS # (AUTO) 0.2 X10^3/uL (0.0-0.1); BASOPHILS % (AUTO) 0.3 % (0.2-1.0); HEMATOCRIT 23.2 % (36.0-47.0); HEMOGLOBIN 7.4 g/dL (12.0-16.0); LYMPHOCYTES # (AUTO) 3.2 X10^3/uL (1.3-2.9); LYMPHOCYTES % (AUTO) 4.5 % (21.0-51.0); MEAN CORPUSCULAR HEMOGLOBIN 29.4 pg (27.0-34.0); MEAN CORPUSCULAR VOLUME 91.7 fL (80.0-100.0); MEAN PLATELET VOLUME 9.8 fL (7.4-11.0); MONOCYTES # (AUTO) 42.7 x10^3/uL (0.3-0.8); MONOCYTES % (AUTO) 61.1 % (0.0-13.0); NEUTROPHILS # (AUTO) 23.9 x10^3/uL (2.2-4.8); NEUTROPHILS % (AUTO) 34.1 % (42.0-75.0); PLATELET COUNT 100 X10^3/uL (150.0-450.0); RED BLOOD COUNT 2.53 X10^6/uL (3.5-5.4)
[2017-05-01 06:41] LABS: ALBUMIN 2.7 g/dL (3.4-5.0); CALCIUM 7.8 mg/dL (8.5-10.1); CARBON DIOXIDE 22.7 mmol/L (21-32); COR CA(FOR HYPOALB) 8.8 mg/dL (8.5-10.1); CREATININE 2.47 mg/dL (0.55-1.02); WHITE BLOOD COUNT 69.9 X10^3/uL (3.6-10.0)
--- NOTE | 2017-05-01 07:28 | RAD ---
History: Respiratory failure, ventilator protocol Study: Portable chest, comparison 04/30/2017 Findings: Portable AP erect chest labeled 707 hours shows the endotracheal tube to lie 2.4 cm above t he david. An NG tube remains in place as does a right subclavian catheter the tip of which overlies the right atrium. The cardiac silhouette is enlarged. Postop changes of CABG are noted. There is opacity again seen in the right lung, left perihilar region and left base. No large pleural effusions are seen. Impression: 1. Tube and line position remains unchanged. 2. Bilateral consolidation suggestive of pneumonia. Reported By:
[2017-05-01] MEDS: ALBUMIN HUMAN 25%- 100ML 200 ML IV SCH (09:10)
[2017-05-01] MEDS: LASIX IVP SCH ×2 (09:10→20:57)
[2017-05-01] MEDS: BACTRIM DS TAB PO SCH ×2 (10:19→20:57)
[2017-05-01] MEDS: HEMOCYTE-PLUS PO SCH (10:19)
[2017-05-01] MEDS: FOLIC ACID TAB 1 MG PO SCH (10:19)
[2017-05-01] MEDS: MILK OF MAGNESIA PO SCH (10:20)
[2017-05-01] MEDS: LACRI-LUBE S.O.P. AFFEYE SCH ×2 (10:20→20:58)
[2017-05-01] MEDS: MEGACE PO SCH ×2 (10:20→20:57)
[2017-05-01] MEDS: NS 1000 ML 1,000 ML IV SCH (10:20)
[2017-05-01] MEDS: XANAX PO SCH ×2 (10:21→20:58)
[2017-05-01] MEDS: SYNTHROID 25 mcg TAB PO SCH (10:21)
[2017-05-01] MEDS: ROBITUSSIN DM PO SCH ×4 (10:21→20:57)
[2017-05-01] MEDS: PROzac PO SCH (10:21)
[2017-05-01] MEDS: TYLENOL 325 MG TAB PO PRN ×3 (10:40→21:45)
[2017-05-01] MEDS: ASPIRIN 81 MG CHEWTAB PO SCH (10:41)
[2017-05-01] MEDS: LOPRESSOR INJ 5 MG AMP IVP SCH ×2 (11:05→18:35)
[2017-05-01] MEDS: BENADRYL INJ 50 MG VIAL IVP PRN (17:15)
[2017-05-01] MEDS ORDERED: NS 500 ML IV 500 ML IV ONE (17:51)
[2017-05-01] MEDS: SNACK - Diabetic Appropriate PO SCH (19:44)
--- NOTE | 2017-05-01 19:44 | PCM.PROG ---
Progress Note - Progress Note for Day of Date: 04/29/17 - Subjective Subjective: WAS ADMITTED FOR LEUKOCYTOSIS, PNEUMONIA, A URINARY TRACT INFECTION, AND ALTERED MENTAL STATUS. TODAY, SHE IS LYING IN BED WITH EYES CLOSED ON MORNING ROUNDS. SHE AWAKENS AND RESPONDS TO VERBAL STIMULI. SHE CONTINUES TO REPORT MODERATE, GENERALIZED WEAKNESS, SHORTNESS OF BREATH, AND A COUGH. SHE DENIES IMPROVEMENT IN SYMPTOMS SINCE YESTERDAY. ON EXAMINATION, SHE IS NOTED TO BE TACHYCARDIC WITH HR IN THE 120S. BILATERAL LUNGS CONTINUE WITH SCATTERED WHEEZING AND RONCHI THROUGHOUT. SHE IS CURRENTLY UTILIZING OXYGEN VIA NASAL CANNULA AT 2L/MIN. ABDOMEN IS ROUND, SOFT, AND NOTED WITH MILD SUPRAPUBIC TENDERNESS. SHE CONTINUES WITH TRACE EDEMA TO BILATERAL LOWER EXTREMITIES. THERE IS NORMAL RANGE OF MOTION NOTED. HER VITALS THIS MORNING ARE 97.3-125-22- 99%-101/55. LABS WERE OBTAINED. ABNORMAL LAB VALUES INCLUDE THE FOLLOWING: WBC INCREASED FROM 62.1 TO 64.4, RBC 3.08, HGB 9.1, HCT 29.3, BUN 23, CREATININE 1.25, GFR 44, GLUCOSE 139, CALCIUM 8.0, AST 50, ALK PHOS 155, TOTAL PROTEIN 5.5 , ALBUMIN 2.0. CHEST XRAY REPORTS FINDINGS THAT REMAIN CONSISTENT WITH CONGESTIVE HEART FAILURE AND PULMONARY EDEMA ALTHOUGH ASSOCIATED PNEUMONIA MAY BE PRESENT. PERIPHERAL SMEAR SUGGESTS TO CONSIDER PERIPHERAL BLOOD INVOLVEMENT BY NON-HODGKIN LYMPHOMA. WE DISCUSSED FINDINGS WITH AND HIS IS IN AGREEMENT WITH DIAGNOSIS. WE DISCUSSED THIS WITH FAMILY AND DISCUSSED PATIENTS CONDITION. TODAY, WE WILL ADMINISTER TWO BAGS OF ALBUMIN. VANCOMYCIN WILL BE HELD THIS MORNING DUE TO ELEVATED VANCOMYCIN TROUGH. OTHERWISE, WE WILL CONTINUE WITH CURRENT PLAN OF CARE TODAY. WE PLAN TO FOLLOW UP WITH AM LABS AND CHEST XRAY AND CONTINUE TO MONITOR PATIENT. - Past Medical Family Social History Past Med/Fam/Surg Hx: No changes since H&P Allergies: Allergies No Known Drug Allergies Allergy (Verified 04/13/17 18:06) - Review of Systems ROS: No change since H&P - Vital Signs and I&O's Vital Signs: Temperature 99.5 F Pulse Rate [Apical] 158 Pulse Rate 137 Respiratory Rate 20 Blood Pressure [Left Arm] 106/63 Blood Pressure [Right Arm] 132/63 Blood Pressure 134/96 O2 Sat by Pulse Oximetry 99 Intake and Output: Intake & Output 02/0304/30/17 05/01/17 05/02/17 11:59 11:59 11:59 11:59 Intake Total 5533 0758 8682 476 Output Total 1175 1350 635 200 Balance 1264 3455 2692 276 - Physical Exam Oriented: Normal Eyes: negative: Normal, Blurred Vision, Diplopia, Discharge, Pain, Redness, Photophobia, Other Ear: Normal. negative: Right, Left, Swelling, Ecchymosis, Hemotypanum, Abrasion , Laceration Nose: Normal Throat: Normal. negative: Tonsillar Hypertrophy, Red, Exudate, Dry, Other Respiratory: Right, Left, Generalized, Wheezes, Rhonchi Cardiovascular: Edema (bilateral lower extremity trace edema ) : Normal Auscultation: Bowel Sounds: Normal Palpation: Normal Tenderness: Suprapubic, Mild. negative: Rebound, Guarding, Rigidity Skin: Wound Musculoskeletal: Instability Psychiatric: Normal Mood Description: Calm Affect: Normal Speech Pattern: Artificially Ventilated - Laboratory and Diagnostics Result Diagrams: 05/01/17 05:50 05/01/17 05:50 Labs: 04/30/17 07:19 Sputum - Endotracheal Wash Sputum Culture - Preliminary 04/30/17 07:19 Sputum - Endotracheal Wash - Final 04/23/17 15:40 Blood Blood Culture - Final 04/23/17 15:35 Blood Blood Culture - Final 04/23/17 17:00 Sputum - Expectorated Sputum Sputum Culture - Final Methicillin Resis Staph Aureus Stenotrophomonas Maltophilia 04/23/17 17:00 Sputum - Expectorated Sputum - Final 04/23/17 16:01 Urine,Catheterized Urine Culture - Final Laboratory WBC 69.9 X10^3/uL (3.6-10.0) H* 05/01/17 05:50 RBC 2.53 X10^6/uL (3.5-5.4) L 05/01/17 05:50 Hgb 7.4 g/dL (12.0-16.0) L 05/01/17 05:50 Hct 23.2 % (36.0-47.0) L 05/01/17 05:50 MCV 91.7 fL (80.0-100.0) 05/01/17 05:50 MCH 29.4 pg (27.0-34.0) 05/01/17 05:50 MCHC 32.0 g/dL (33.0-35.0) L 05/01/17 05:50 RDW 17.0 % (11.6-16.5) H 05/01/17 05:50 Plt Count 100 X10^3/uL (150.0-450.0) L 05/01/17 05:50 Plt Count Comment Adequate (ADEQUATE) 04/25/17 05:49 MPV 9.8 fL (7.4-11.0) 05/01/17 05:50 Neut % 34.1 % (42.0-75.0) L 05/01/17 05:50 Lymph % 4.5 % (21.0-51.0) L 05/01/17 05:50 [place] % 61.1 % (0.0-13.0) H 05/01/17 05:50 Eos % 0.0 % (0.9-2.9) L 05/01/17 05:50 Baso % 0.3 % (0.2-1.0) 05/01/17 05:50 Neut # 23.9 x10^3/uL (2.2-4.8) H 05/01/17 05:50 Lymph # 3.2 X10^3/uL (1.3-2.9) H 05/01/17 05:50 [place] # 42.7 x10^3/uL (0.3-0.8) H 05/01/17 05:50 Eos # 0.0 x10^3/uL (0.0-0.2) 05/01/17 05:50 Baso # 0.2 X10^3/uL (0.0-0.1) H 05/01/17 05:50 Absolute Nucleated RBC 0.4 /100WBC 05/01/17 05:50 Total Counted 100 04/25/17 05:49 Neutrophils % (Manual) 18 % (39-76) L 04/25/17 05:49 Band Neutrophils % 2 % (0-10) 04/24/17 05:45 Lymphocytes % (Manual) 12 % (13-43) L 04/25/17 05:49 Monocytes % (Manual) 4 % (4-9) 04/25/17 05:49 Eosinophils % (Manual) Cancelled 04/30/17 06:20 Basophils % (Manual) Cancelled 04/30/17 06:20 Metamyelocytes % Cancelled 04/30/17 06:20 Myelocytes % Cancelled 04/30/17 06:20 Promyelocytes % Cancelled 04/30/17 06:20 Nucleated RBCs Cancelled 04/30/17 06:20 Atypical Lymphocytes 56 04/25/17 05:49 Blast Cells 10 (-1) H 04/25/17 05:49 Smudge Cells Cancelled 04/30/17 06:20 Toxic Granulation Cancelled 04/30/17 06:20 Dohle Bodies Cancelled 04/30/17 06:20 Donaldo Rods Cancelled 04/30/17 06:20 Plt Clumps, EDTA Cancelled 04/30/17 06:20 Giant Platelets Cancelled 04/30/17 06:20 Plt Morphology Comment Normal (NORMAL) 04/25/17 05:49 RBC Morphology Normal (NORMAL) 04/25/17 05:49 Dimorphic RBCs Cancelled 04/30/17 06:20 Polychromasia Cancelled 04/30/17 06:20 Hypochromasia Slight A 04/23/17 15:35 Poikilocytosis Cancelled 04/30/17 06:20 Basophilic Stippling Cancelled 04/30/17 06:20 Anisocytosis 1+ A 04/23/17 15:35 Microcytosis Slight A 04/23/17 15:35 Macrocytosis Slight A 04/23/17 15:35 Spherocytes Cancelled 04/30/17 06:20 Pappenheimer Bodies Cancelled 04/30/17 06:20 Sickle Cells Cancelled 04/30/17 06:20 Target Cells Cancelled 04/30/17 06:20 Tear Drop Cells Cancelled 04/30/17 06:20 Ovalocytes Cancelled 04/30/17 06:20 Stomatocytes Cancelled 04/30/17 06:20 Helmet Cells Cancelled 04/30/17 06:20 [place] Bodies Cancelled 04/30/17 06:20 [place] Rings Cancelled 04/30/17 06:20 Jef Cells Cancelled 04/30/17 06:20 Crenated Cell Cancelled 04/30/17 06:20 Acanthocytes (Spur) Cancelled 04/30/17 06:20 Rouleaux Cancelled 04/30/17 06:20 Schistocytes Cancelled 04/30/17 06:20 Smear Path Review See note 04/23/17 15:35 INR Target Range - 04/23/17 15:35 INR 1.04 (0.8-1.3) 04/23/17 15:35 PTT 30.3 SECONDS (22.9-36.5) 04/23/17 15:35 PTT Comment - 04/23/17 15:35 D-Dimer 843 ng/mL (0-400) H* 04/23/17 15:35 Sample Site Rrad 05/01/17 06:00 ABG pH 7.450 (7.35-7.45) 05/01/17 06:00 ABG pCO2 31.0 mmHg (35.0-45.0) L 05/01/17 06:00 ABG pO2 74.0 mmHg (80.0-100.0) L 05/01/17 06:00 ABG HCO3 21.5 mmol/L (22-26) L 05/01/17 06:00 ABG O2 Saturation 95.0 % (90-100) 05/01/17 06:00 ABG Base Excess -1.7 mmol/L (-2.0-2.0) 05/01/17 06:00 Bar Test Pos 05/01/17 06:00 A-a Gradient 137.0 mmHg 05/01/17 06:00 FiO2 35.000 05/01/17 06:00 Blood Gas Comments Mukund abg well-mtf 05/01/17 06:00 Sodium 145 mmol/L (136-145) 05/01/17 05:50 Corrected Sodium 147 mmol/L (136-145) H 05/01/17 05:50 Potassium 3.7 mmol/L (3.5-5.1) 05/01/17 05:50 Chloride 107 mmol/L (98-107) 05/01/17 05:50 Carbon Dioxide 22.7 mmol/L (21-32) 05/01/17 05:50 BUN 50 mg/dL (7-18) H 05/01/17 05:50 Creatinine 2.47 mg/dL (0.55-1.02) H 05/01/17 05:50 Est GFR (MDRD) Af Amer 24 (>60) L 05/01/17 05:50 Est GFR (MDRD) Non-Af 20 (>60) L 05/01/17 05:50 Glucose 192 mg/dL (65-99) H 05/01/17 05:50 POC Glucose (mg/dL) 156 mg/dL (65-99) H 05/01/17 16:36 Lactic Acid 1.2 mmol/L (0.4-2.0) 04/23/17 15:35 Calcium 7.8 mg/dL (8.5-10.1) L 05/01/17 05:50 Corrected Calcium 8.8 mg/dL (8.5-10.1) 05/01/17 05:50 Total Bilirubin 0.80 mg/dL (0.2-1.0) 05/01/17 05:50 AST 645 Units/L (15-37) H 05/01/17 05:50 ALT 330 Units/L (12-78) H 05/01/17 05:50 Alkaline Phosphatase 83 Units/L (46-116) 05/01/17 05:50 Creatine Kinase 103 Units/L (26-192) 04/23/17 15:35 CK-MB (CK-2) < 1.0 ng/mL (0-4.0) 04/23/17 15:35 CK/CKMB % Calc 1.0 % (<4) 04/23/17 15:35 Troponin I 0.02 ng/mL (0-1.5) 04/23/17 15:35 B-Natriuretic Peptide 1620 pg/mL (0-79) H* 04/23/17 15:35 Total Protein 5.0 g/dL (6.4-8.2) L 05/01/17 05:50 Albumin 2.7 g/dL (3.4-5.0) L 05/01/17 05:50 Globulin 2.3 g/dL (2.5-4.5) L 05/01/17 05:50 Albumin/Globulin Ratio 1.2 Ratio (1.1-2.1) 05/01/17 05:50 Specimen Type Catherized urine 04/23/17 16:01 Urine Color Yellow (YELLOW) 04/23/17 16:01 Urine Appearance Hazy (CLEAR) 04/23/17 16:01 Urine pH 5.0 (5.0 - 8.0) 04/23/17 16:01 Ur Specific [place] 1.025 (1.000-1.030) 04/23/17 16:01 Urine Protein 3+ (NEGATIVE) 04/23/17 16:01 Urine Glucose (UA) Negative (NEGATIVE) 04/23/17 16:01 Urine Ketones Negative (NEGATIVE) 04/23/17 16:01 Urine Occult Blood 2+ (NEGATIVE) 04/23/17 16:01 Urine Nitrite Negative (NEGATIVE) 04/23/17 16:01 Urine Bilirubin Negative (NEGATIVE) 04/23/17 16:01 Urine Urobilinogen Normal (NORMAL) 04/23/17 16:01 Ur Leukocyte Esterase 3+ (NEGATIVE) 04/23/17 16:01 Urine RBC 0-5 /HPF (NEGATIVE) 04/23/17 16:01 Urine WBC 6-10 /HPF (NEGATIVE) 04/23/17 16:01 Ur Squamous Epith Cells Negative /HPF (NEGATIVE) 04/23/17 16:01 Urine Bacteria 1+ /HPF (NEGATIVE) 04/23/17 16:01 Ur Culture Indicated? Yes/culture set up 04/23/17 16:01 Vancomycin Trough 39.9 ug/mL (15-20) H* 04/30/17 21:10 Random Vancomycin 36.5 ug/mL 05/01/17 11:07 Influenza Type A (PCR) Negative (NEGATIVE) 05/01/17 09:45 Influenza Type B (PCR) Negative (NEGATIVE) 05/01/17 09:45 Miscellaneous Test Leukemia panel flow 04/25/17 11:10 Blood Type O POSITIVE 04/30/17 06:50 Antibody Screen Negative 04/30/17 06:50 Crossmatch See Detail 04/30/17 06:50 - Plan (1) Pneumonia Status: Acute Qualifiers: Pneumonia type: due to methicillin-resistant Staphylococcus aureus (MRSA) Laterality: bilateral Lung location: lower lobe of lung Qualified Code(s): J15.212 - Pneumonia due to Methicillin resistant Staphylococcus aureus Plan: pneumonia protocol, levaquin 750mg iv daily, fortaz 1gm iv q8h, respiratory tx, supplemental oxygen, continue to monitor (2) Infection with Stenotrophomonas maltophilia resistant to multiple drugs Status: Acute Plan: BACTRIM DS 1 TAB PO BID, CONTINUE TO MONITOR (3) Altered mental state Status: Acute Qualifiers: Altered mental status type: transient alteration of awareness Qualified Code(s): R40.4 - Transient alteration of awareness Plan: treat uti, continue to monitor (4) Leukemoid reaction Status: Acute Plan: IV abx, consult , continue to monitor (5) Urinary tract infection Status: Acute Qualifiers: Urinary tract infection type: acute cystitis Hematuria presence: with hematuria Qualified Code(s): N30.01 - Acute cystitis with hematuria Plan: fortaz 1gm iv q8h, levaquin 750mg iv daily, continue to monitor (6) Congestive heart failure Status: Acute Qualifiers: Congestive heart failure type: unspecified Congestive heart failure chronicity: acute on chronic Qualified Code(s): I50.9 - Heart failure, unspecified Plan: LASIX 40MG IV BID X 2 DOSES, CONTINUE HEART FAILURE MEDS, CONTINUE RESPIRATORY TX AND SUPPLEMENTAL OXYGEN, CONTINUE TO MONITOR (7) Hypoalbuminemia Status: Acute Plan: ALBUMIN 25% 2 BAGS DAILY, CONTINUE TO MONITOR
[2017-05-01] MEDS: NYSTATIN POWDER TOP SCH ×2 (20:56→20:59)
[2017-05-01] MEDS: COLACE CAP 100 MG PO SCH (20:58)
[2017-05-01] MEDS: LIPITOR TAB 40 MG PO SCH (20:58)
[2017-05-02] MEDS: NS 1000 ML 1,000 ML IV SCH ×2 (00:07→14:46)
[2017-05-02] MEDS: NS 100 ML IV 100 ML IV SCH ×2 (00:08→05:51)
[2017-05-02] MEDS: DUONEB 0.5 MG/3 MG NEB SCH ×6 (00:57→21:03)
[2017-05-02] MEDS: LOPRESSOR INJ 5 MG AMP IVP SCH ×3 (03:10→19:49)
[2017-05-02] MEDS: FORTAZ or TAZICEF INJ 1 GM in NS 50 ML IV 50 ML IV SCH ×3 (05:00→21:30)
[2017-05-02 06:00] LABS: ABG BASE EXCESS -0.7 mmol/L (-2.0-2.0); ABG HCO3 23.4 mmol/L (22-26)
[2017-05-02 06:18] LABS: BASOPHILS % (AUTO) 0 % (0.2-1.0); HEMATOCRIT 25.7 % (36.0-47.0); HEMOGLOBIN 8.3 g/dL (12.0-16.0); LYMPHOCYTES # (AUTO) 1.9 X10^3/uL (1.3-2.9); LYMPHOCYTES % (AUTO) 3.2 % (21.0-51.0); MEAN CORPUSCULAR HEMOGLOBIN 29.6 pg (27.0-34.0); MEAN CORPUSCULAR HGB CONC 32.4 g/dL (33.0-35.0); MEAN CORPUSCULAR VOLUME 91.5 fL (80.0-100.0); MEAN PLATELET VOLUME 10.7 fL (7.4-11.0); MONOCYTES # (AUTO) 35.4 x10^3/uL (0.3-0.8); MONOCYTES % (AUTO) 60.5 % (0.0-13.0); NEUTROPHILS # (AUTO) 21.3 x10^3/uL (2.2-4.8); NEUTROPHILS % (AUTO) 36.3 % (42.0-75.0); PLATELET COUNT 70 X10^3/uL (150.0-450.0); RED BLOOD COUNT 2.81 X10^6/uL (3.5-5.4); RED CELL DISTRIBUTION WIDTH 16.8 % (11.6-16.5)
[2017-05-02 06:33] LABS: WHITE BLOOD COUNT 58.7 X10^3/uL (3.6-10.0)
[2017-05-02 06:41] LABS: ALBUMIN 2.8 g/dL (3.4-5.0); CALCIUM 7.6 mg/dL (8.5-10.1); CARBON DIOXIDE 22.8 mmol/L (21-32); COR CA(FOR HYPOALB) 8.6 mg/dL (8.5-10.1); CREATININE 3.13 mg/dL (0.55-1.02); MAGNESIUM 2.8 mg/dL (1.7-2.9)
--- NOTE | 2017-05-02 07:21 | RAD ---
History: Follow-up infiltrates, ventilator protocol Study: Portable chest Findings: Portable AP erect chest labeled 2 6, 6:40 a.m. is compared to the prior study of 05/01/2017 . The endotracheal tube, NG tube and right subclavian catheter are unchanged in position. The cardiac silhouette remains enlarged. Persistent infiltration in both lungs is seen, right greater than left. There is a suggestion of bilateral pleural fluid which appears to have increased minimall y. Impression: 1. Persistent bilateral lung infiltrates suggesting pneumonia. 2. There appear to be increasing bilateral pleural effusions. Reported By:
[2017-05-02] MEDS: ALBUMIN HUMAN 25%- 100ML 200 ML IV SCH (09:49)
[2017-05-02] MEDS: FOLIC ACID TAB 1 MG PO SCH (09:55)
[2017-05-02] MEDS: BACTRIM DS TAB PO SCH ×2 (09:55→21:28)
[2017-05-02] MEDS: HEMOCYTE-PLUS PO SCH (09:55)
[2017-05-02] MEDS: ASPIRIN 81 MG CHEWTAB PO SCH (09:55)
[2017-05-02] MEDS: MEGACE PO SCH ×2 (09:56→21:28)
[2017-05-02] MEDS: LACRI-LUBE S.O.P. AFFEYE SCH ×2 (09:56→21:29)
[2017-05-02] MEDS: LASIX IVP SCH ×2 (09:56→21:29)
[2017-05-02] MEDS: MILK OF MAGNESIA PO SCH (09:57)
[2017-05-02] MEDS: NYSTATIN POWDER TOP SCH ×2 (09:57→21:29)
[2017-05-02] MEDS: PROzac PO SCH (09:57)
[2017-05-02] MEDS: ROBITUSSIN DM PO SCH ×4 (09:58→21:29)
[2017-05-02] MEDS: XANAX PO SCH ×2 (09:58→21:30)
[2017-05-02] MEDS: SYNTHROID 25 mcg TAB PO SCH (09:58)
--- NOTE | 2017-05-02 11:31 | RAD ---
HISTORY: Constipation. Study: KUB. Image quality is degraded secondary to patient body habitus. Comparison: None Findings: On the image submitted, there is scattered large and small bowel gas. There appears to most likely b e moderate redundancy of the sigmoid colon. A moderate amount of stool is noted in the region of the splenic flexure. There appears to most likely be [id number] stool noted in the region of the rectum. Bibc-re-[id number] lumbar spondylosis is present. IMPRESSION: 1. No evidence of bowel obstruction or pneumoperitoneum. 2. Probably moderately redundant sigmoid colon. 3. Small to moderate amount of stool in the region of the splenic flexure and probably within the rec carmen. Reported By:
--- NOTE | 2017-05-02 14:02 | PCM.PROG ---
Progress Note - Progress Note for Day of Date: 04/30/17 - Subjective Subjective: WAS ADMITTED FOR LEUKOCYTOSIS, PNEUMONIA, A URINARY TRACT INFECTION, AND ALTERED MENTAL STATUS. YESTERDAY AFTERNOON, PATIENT BEGAN WITH DECREASED RESPONSIVENESS. SHE ONLY RESPONDED WITH GRUNTING AND EYE MOVEMENT TO STERNAL RUB AND PAIN. VITALS AND BLOOD GLUCOSE WERE STABLE AT THAT TIME. AT APPROXIMATELY 0500 TODAY, PATIENT BEGAN VOMITING DARK BROWN EMESIS. OXYGEN SATURATIONS WERE NOTED TO BE 89% AT THAT TIME. BLOOD GLUCOSE WAS NOTED TO BE 205. SHE CONTINUED TO BE UNRESPONSIVE TO VERBAL STIMULI. STERNAL RUB WAS ATTEMPTED WITH NO RESULTS. CHARGE NURSE DISCUSSED CODE STATUS WITH PATIENT. THEY REPORT THAT PATIENT WAS TO BE A FULL CODE AT THE TIME. ER DOCTOR WAS NOTIFIED OF PATIENTS DETERIORATING CONDITION. AT APPROXIMATELY 0515, CPR WAS STARTED. NO PALPABLE PULSE WAS NOTED, BLOOD PRESSURE WAS NOTED TO BE 53/38, OXYGEN SATURATIONS WERE 85% WITH OXYGEN VIA AMBU BAG. PATIENT WAS INTUBATED BY RESPIRATORY THERAPY WITH 7.0 ET TUBE. AN NG TUBE WAS PLACED TO THE RIGHT NARE AND ATTACHED TO INTERMITTENT SUCTION. COFFEE GROUND EMESIS WAS NOTED ON RETURN IN DRAINAGE CANISTER. PLACEMENT OF ET TUBE AND NG TUBE WAS CONFIRMED BY CHEST XRAY. SHE WAS PLACED ON THE MECHANICAL VENTILLATOR ON A/C MODE, TIDAL VOLUME 400 , RATE 16, 100%. ON MORNING ROUNDS, PATIENT CONTINUES TO BE ON THE MECHANICAL VENTILATOR AT THE SAME SETTINGS. SHE IS NOT ON ANY SEDATION MEDICATIONS AND NO RESPONSE TO VERBAL OR PAINFUL STIMULI IS NOTED AT THIS TIME. HER VITALS THIS MORNING ARE 97.2-215-45-100%-82/51. LABS WERE OBTAINED. ABNORMAL LAB VALUES INCLUDE THE FOLLOWING: RBC 70.1, RBC 2.06, HGB 6.1, HCT 20.4, CHLORIDE 108, BUN 31, CREATININE 1.79, GLUCOSE 230, CALCIUM 7.6, AST 113, TOTAL PROTEIN 4.7, ALBUMIN 2.2. ARTERIAL BLOOD GAS REVEALED PH 7.270, PC02 44, P02 287, HC03 20.2, BASE EXCESS -6.5. A NEW SPUTUM CULTURE WAS OBTAINED. CHEST XRAY REPORTED CARDIOMEGALY AND EDEMA, WORSE ON THE RIGHT. EFFUSION MAY BE PRESENT ON THE RIGHT. UNDERLYING INFILTRATE NOT EXCLUDED. WE DISCUSSED PATIENTS CONDITION WITH FAMILY. THEY WISH FOR PATIENT TO REMAIN ON VENTILLATOR AT THIS TIME. TODAY , WE WILL TRANSFUSE TWO UNITS OF PACKED RED BLOOD CELLS TODAY. OTHERWISE, WE WILL CONTINUE WITH IV ANTIBIOTICS FOR UTI AND PNEUMONIA. WE WILL FOLLOW UP WITH AM LABS AND CHEST XRAY AND CONTINUE TO MONITOR PATIENT. - Past Medical Family Social History Past Med/Fam/Surg Hx: No changes since H&P Allergies: Allergies No Known Drug Allergies Allergy (Verified 04/13/17 18:06) - Review of Systems ROS: No change since H&P - Vital Signs and I&O's Vital Signs: Temperature 98 F Pulse Rate [Apical] 147 Pulse Rate 151 Respiratory Rate 19 Blood Pressure [Left Arm] 113/56 Blood Pressure [Right Arm] 132/63 Blood Pressure 113/56 O2 Sat by Pulse Oximetry 100 Intake and Output: Intake & Output 04/30/17 05/01/17 05/02/17 05/03/17 11:59 11:59 11:59 11:59 Intake Total 4805 3327 1608 Output Total 1350 635 400 Balance 3455 2692 1208 - Physical Exam Oriented: Unable to test Eyes: negative: Normal, Blurred Vision, Diplopia, Discharge, Pain, Redness, Photophobia, Other Ear: Normal. negative: Right, Left, Swelling, Ecchymosis, Hemotypanum, Abrasion , Laceration Nose: Normal Throat: Normal. negative: Tonsillar Hypertrophy, Red, Exudate, Dry, Other Respiratory: Right, Left, Generalized, Wheezes, Rhonchi Cardiovascular: Edema (bilateral lower extremity trace edema ) : Normal Auscultation: Bowel Sounds: Normal Palpation: Normal Skin: Wound Musculoskeletal: Instability Psychiatric: Other (unresponsive, on mechanical vent ) Speech Pattern: Artificially Ventilated - Laboratory and Diagnostics Result Diagrams: 05/02/17 15:05 05/02/17 05:15 Labs: 04/30/17 07:19 Sputum - Endotracheal Wash Sputum Culture - Final 04/30/17 07:19 Sputum - Endotracheal Wash - Final 04/23/17 15:40 Blood Blood Culture - Final 04/23/17 15:35 Blood Blood Culture - Final 04/23/17 17:00 Sputum - Expectorated Sputum Sputum Culture - Final Methicillin Resis Staph Aureus Stenotrophomonas Maltophilia 04/23/17 17:00 Sputum - Expectorated Sputum - Final 04/23/17 16:01 Urine,Catheterized Urine Culture - Final Laboratory WBC 58.7 X10^3/uL (3.6-10.0) H* D 05/02/17 05:15 RBC 2.81 X10^6/uL (3.5-5.4) L 05/02/17 05:15 Hgb 8.3 g/dL (12.0-16.0) L 05/02/17 05:15 Hct 25.7 % (36.0-47.0) L 05/02/17 05:15 MCV 91.5 fL (80.0-100.0) 05/02/17 05:15 MCH 29.6 pg (27.0-34.0) 05/02/17 05:15 MCHC 32.4 g/dL (33.0-35.0) L 05/02/17 05:15 RDW 16.8 % (11.6-16.5) H 05/02/17 05:15 Plt Count 70 X10^3/uL (150.0-450.0) L 05/02/17 05:15 Plt Count Comment Adequate (ADEQUATE) 04/25/17 05:49 MPV 10.7 fL (7.4-11.0) 05/02/17 05:15 Neut % 36.3 % (42.0-75.0) L 05/02/17 05:15 Lymph % 3.2 % (21.0-51.0) L 05/02/17 05:15 Bonner % 60.5 % (0.0-13.0) H 05/02/17 05:15 Eos % 0.0 % (0.9-2.9) L 05/02/17 05:15 Baso % 0 % (0.2-1.0) L 05/02/17 05:15 Neut # 21.3 x10^3/uL (2.2-4.8) H 05/02/17 05:15 Lymph # 1.9 X10^3/uL (1.3-2.9) 05/02/17 05:15 Bonner # 35.4 x10^3/uL (0.3-0.8) H 05/02/17 05:15 Eos # 0.0 x10^3/uL (0.0-0.2) 05/02/17 05:15 Baso # 0.0 X10^3/uL (0.0-0.1) 05/02/17 05:15 Absolute Nucleated RBC 0.1 /100WBC 05/02/17 05:15 Total Counted 100 04/25/17 05:49 Neutrophils % (Manual) 18 % (39-76) L 04/25/17 05:49 Band Neutrophils % 2 % (0-10) 04/24/17 05:45 Lymphocytes % (Manual) 12 % (13-43) L 04/25/17 05:49 Monocytes % (Manual) 4 % (4-9) 04/25/17 05:49 Eosinophils % (Manual) Cancelled 04/30/17 06:20 Basophils % (Manual) Cancelled 04/30/17 06:20 Metamyelocytes % Cancelled 04/30/17 06:20 Myelocytes % Cancelled 04/30/17 06:20 Promyelocytes % Cancelled 04/30/17 06:20 Nucleated RBCs Cancelled 04/30/17 06:20 Atypical Lymphocytes 56 04/25/17 05:49 Blast Cells 10 (-1) H 04/25/17 05:49 Smudge Cells Cancelled 04/30/17 06:20 Toxic Granulation Cancelled 04/30/17 06:20 Dohle Bodies Cancelled 04/30/17 06:20 Donaldo Rods Cancelled 04/30/17 06:20 Plt Clumps, EDTA Cancelled 04/30/17 06:20 Giant Platelets Cancelled 04/30/17 06:20 Plt Morphology Comment Normal (NORMAL) 04/25/17 05:49 RBC Morphology Normal (NORMAL) 04/25/17 05:49 Dimorphic RBCs Cancelled 04/30/17 06:20 Polychromasia Cancelled 04/30/17 06:20 Hypochromasia Slight A 04/23/17 15:35 Poikilocytosis Cancelled 04/30/17 06:20 Basophilic Stippling Cancelled 04/30/17 06:20 Anisocytosis 1+ A 04/23/17 15:35 Microcytosis Slight A 04/23/17 15:35 Macrocytosis Slight A 04/23/17 15:35 Spherocytes Cancelled 04/30/17 06:20 Pappenheimer Bodies Cancelled 04/30/17 06:20 Sickle Cells Cancelled 04/30/17 06:20 Target Cells Cancelled 04/30/17 06:20 Tear Drop Cells Cancelled 04/30/17 06:20 Ovalocytes Cancelled 04/30/17 06:20 Stomatocytes Cancelled 04/30/17 06:20 Helmet Cells Cancelled 04/30/17 06:20 Mcknight-[place] Bodies Cancelled 04/30/17 06:20 [place] Rings Cancelled 04/30/17 06:20 Garita Cells Cancelled 04/30/17 06:20 Crenated Cell Cancelled 04/30/17 06:20 Acanthocytes (Spur) Cancelled 04/30/17 06:20 Rouleaux Cancelled 04/30/17 06:20 Schistocytes Cancelled 04/30/17 06:20 Smear Path Review See note 04/23/17 15:35 INR Target Range - 04/23/17 15:35 INR 1.04 (0.8-1.3) 04/23/17 15:35 PTT 30.3 SECONDS (22.9-36.5) 04/23/17 15:35 PTT Comment - 04/23/17 15:35 D-Dimer 843 ng/mL (0-400) H* 04/23/17 15:35 Sample Site Rrad 05/02/17 05:22 ABG pH 7.420 (7.35-7.45) 05/02/17 05:22 ABG pCO2 36.0 mmHg (35.0-45.0) 05/02/17 05:22 ABG pO2 71.0 mmHg (80.0-100.0) L 05/02/17 05:22 ABG HCO3 23.4 mmol/L (22-26) 05/02/17 05:22 ABG O2 Saturation 94.0 % (90-100) 05/02/17 05:22 ABG Base Excess -0.7 mmol/L (-2.0-2.0) 05/02/17 05:22 Bar Test Na 05/02/17 05:22 A-a Gradient 134.0 mmHg 05/02/17 05:22 FiO2 35.000 05/02/17 05:22 Blood Gas Comments Mukund abg well. 05/02/17 05:22 Sodium 145 mmol/L (136-145) 05/02/17 05:15 Corrected Sodium 146 mmol/L (136-145) H 05/02/17 05:15 Potassium 3.8 mmol/L (3.5-5.1) 05/02/17 05:15 Chloride 110 mmol/L (98-107) H 05/02/17 05:15 Carbon Dioxide 22.8 mmol/L (21-32) 05/02/17 05:15 BUN 63 mg/dL (7-18) H 05/02/17 05:15 Creatinine 3.13 mg/dL (0.55-1.02) H 05/02/17 05:15 Est GFR (MDRD) Af Amer 18 (>60) L 05/02/17 05:15 Est GFR (MDRD) Non-Af 15 (>60) L 05/02/17 05:15 Glucose 130 mg/dL (65-99) H 05/02/17 05:15 POC Glucose (mg/dL) 129 mg/dL (65-99) H 05/02/17 11:50 Lactic Acid 1.2 mmol/L (0.4-2.0) 04/23/17 15:35 Calcium 7.6 mg/dL (8.5-10.1) L 05/02/17 05:15 Corrected Calcium 8.6 mg/dL (8.5-10.1) 05/02/17 05:15 Magnesium 2.8 mg/dL (1.7-2.9) 05/02/17 05:15 Total Bilirubin 0.80 mg/dL (0.2-1.0) 05/02/17 05:15 AST 526 Units/L (15-37) H 05/02/17 05:15 ALT 437 Units/L (12-78) H 05/02/17 05:15 Alkaline Phosphatase 71 Units/L (46-116) 05/02/17 05:15 Creatine Kinase 103 Units/L (26-192) 04/23/17 15:35 CK-MB (CK-2) < 1.0 ng/mL (0-4.0) 04/23/17 15:35 CK/CKMB % Calc 1.0 % (<4) 04/23/17 15:35 Troponin I 0.02 ng/mL (0-1.5) 04/23/17 15:35 B-Natriuretic Peptide 1620 pg/mL (0-79) H* 01/28/18 15:35 Total Protein 5.0 g/dL (6.4-8.2) L 05/02/17 05:15 Albumin 2.8 g/dL (3.4-5.0) L 05/02/17 05:15 Globulin 2.2 g/dL (2.5-4.5) L 05/02/17 05:15 Albumin/Globulin Ratio 1.3 Ratio (1.1-2.1) 05/02/17 05:15 Specimen Type Catherized urine 04/23/17 16:01 Urine Color Yellow (YELLOW) 04/23/17 16:01 Urine Appearance Hazy (CLEAR) 04/23/17 16:01 Urine pH 5.0 (5.0 - 8.0) 04/23/17 16:01 Ur Specific Bridger 1.025 (1.000-1.030) 04/23/17 16:01 Urine Protein 3+ (NEGATIVE) 04/23/17 16:01 Urine Glucose (UA) Negative (NEGATIVE) 04/23/17 16:01 Urine Ketones Negative (NEGATIVE) 04/23/17 16:01 Urine Occult Blood 2+ (NEGATIVE) 04/23/17 16:01 Urine Nitrite Negative (NEGATIVE) 04/23/17 16:01 Urine Bilirubin Negative (NEGATIVE) 04/23/17 16:01 Urine Urobilinogen Normal (NORMAL) 04/23/17 16:01 Ur Leukocyte Esterase 3+ (NEGATIVE) 04/23/17 16:01 Urine RBC 0-5 /HPF (NEGATIVE) 04/23/17 16:01 Urine WBC 6-10 /HPF (NEGATIVE) 04/23/17 16:01 Ur Squamous Epith Cells Negative /HPF (NEGATIVE) 04/23/17 16:01 Urine Bacteria 1+ /HPF (NEGATIVE) 04/23/17 16:01 Ur Culture Indicated? Yes/culture set up 04/23/17 16:01 Vancomycin Trough 39.9 ug/mL (15-20) H* 04/30/17 21:10 Random Vancomycin 36.5 ug/mL 05/01/17 11:07 Influenza Type A (PCR) Negative (NEGATIVE) 05/01/17 09:45 Influenza Type B (PCR) Negative (NEGATIVE) 05/01/17 09:45 Miscellaneous Test Leukemia panel flow 04/25/17 11:10 Blood Type O POSITIVE 04/30/17 06:50 Antibody Screen Negative 04/30/17 06:50 Crossmatch See Detail 04/30/17 06:50 - Plan (1) Respiratory failure Status: Acute Qualifiers: Chronicity: acute Respiratory failure complication: hypoxia and hypercapnia Qualified Code(s): J96.01 - Acute respiratory failure with hypoxia ; J96.02 - Acute respiratory failure with hypercapnia; J96.02 - Acute respiratory failure with hypercapnia; J96.02 - Acute respiratory failure with hypercapnia Plan: mechanical ventillation, monitor abg, continue to monitor (2) Pneumonia Status: Acute Qualifiers: Pneumonia type: due to methicillin-resistant Staphylococcus aureus (MRSA) Laterality: bilateral Lung location: lower lobe of lung Qualified Code(s): J15.212 - Pneumonia due to Methicillin resistant Staphylococcus aureus Plan: pneumonia protocol, levaquin 750mg iv daily, fortaz 1gm iv q8h, respiratory tx, supplemental oxygen, continue to monitor (3) Infection with Stenotrophomonas maltophilia resistant to multiple drugs Status: Acute Plan: BACTRIM DS 1 TAB PO BID, CONTINUE TO MONITOR (4) Altered mental state Status: Acute Qualifiers: Altered mental status type: transient alteration of awareness Qualified Code(s): R40.4 - Transient alteration of awareness Plan: treat uti, continue to monitor (5) Leukemoid reaction Status: Acute Plan: IV abx, consult , continue to monitor (6) Urinary tract infection Status: Acute Qualifiers: Urinary tract infection type: acute cystitis Hematuria presence: with hematuria Qualified Code(s): N30.01 - Acute cystitis with hematuria Plan: fortaz 1gm iv q8h, levaquin 750mg iv daily, continue to monitor (7) Congestive heart failure Status: Acute Qualifiers: Congestive heart failure type: unspecified Congestive heart failure chronicity: acute on chronic Qualified Code(s): I50.9 - Heart failure, unspecified Plan: LASIX 40MG IV BID X 2 DOSES, CONTINUE HEART FAILURE MEDS, CONTINUE RESPIRATORY TX AND SUPPLEMENTAL OXYGEN, CONTINUE TO MONITOR (8) Hypoalbuminemia Status: Acute Plan: ALBUMIN 25% 2 BAGS DAILY, CONTINUE TO MONITOR
[2017-05-02] MEDS ORDERED: DULCOLAX SUPPOSITORY 10 MG RECTAL ONE (15:32)
[2017-05-02] MEDS ORDERED: NS 100 ML IV 100 ML IV PRN (16:45)
[2017-05-02] MEDS: SNACK - Diabetic Appropriate PO SCH (19:49)
[2017-05-02] MEDS: LIPITOR TAB 40 MG PO SCH (21:28)
[2017-05-02] MEDS: COLACE CAP 100 MG PO SCH (21:28)
[2017-05-03] MEDS: DUONEB 0.5 MG/3 MG NEB SCH (00:55)
[2017-05-03] MEDS: NS 1000 ML 1,000 ML IV SCH ×2 (05:00→05:28)
[2017-05-03] MEDS: LOPRESSOR INJ 5 MG AMP IVP SCH ×2 (05:29→10:18)
[2017-05-03] MEDS: FORTAZ or TAZICEF INJ 1 GM in NS 50 ML IV 50 ML IV SCH ×2 (05:30→15:19)
[2017-05-03 06:02] LABS: ABG BASE EXCESS -4.1 mmol/L (-2.0-2.0); ABG HCO3 22.6 mmol/L (22-26)
[2017-05-03 06:39] LABS: BASOPHILS % (AUTO) 0 % (0.2-1.0); HEMATOCRIT 32.4 % (36.0-47.0); HEMOGLOBIN 10.5 g/dL (12.0-16.0); LYMPHOCYTES # (AUTO) 0.1 X10^3/uL (1.3-2.9); LYMPHOCYTES % (AUTO) 0.2 % (21.0-51.0); MEAN CORPUSCULAR HEMOGLOBIN 29.7 pg (27.0-34.0); MEAN CORPUSCULAR HGB CONC 32.3 g/dL (33.0-35.0); MEAN CORPUSCULAR VOLUME 92.1 fL (80.0-100.0); MEAN PLATELET VOLUME 11.4 fL (7.4-11.0); MONOCYTES # (AUTO) 33.3 x10^3/uL (0.3-0.8); MONOCYTES % (AUTO) 54.9 % (0.0-13.0); NEUTROPHILS # (AUTO) 27.3 x10^3/uL (2.2-4.8); NEUTROPHILS % (AUTO) 44.9 % (42.0-75.0); PLATELET COUNT 68 X10^3/uL (150.0-450.0); RED BLOOD COUNT 3.52 X10^6/uL (3.5-5.4); RED CELL DISTRIBUTION WIDTH 17.5 % (11.6-16.5)
[2017-05-03 06:52] LABS: ALBUMIN 3.1 g/dL (3.4-5.0); CALCIUM 7.7 mg/dL (8.5-10.1); CARBON DIOXIDE 23.4 mmol/L (21-32); COR CA(FOR HYPOALB) 8.4 mg/dL (8.5-10.1); CREATININE 3.61 mg/dL (0.55-1.02); TOTAL PROTEIN 5.5 g/dL (6.4-8.2)
--- NOTE | 2017-05-03 06:55 | RAD ---
History: Constipation Study: Supine abdomen Comparison: Yesterday Findings: There is a triangular-shaped calcific density likely representing a renal calculus in the l eft kidney or pelvis unchanged with smaller adjacent calculi. The bowel gas pattern is within normal limits. There are phleboliths in the pelvis. There is heavy arterial vascular calcification. There is severe lower lumbar degenerative disc disease. Impression: Large calculus and smaller calculi in the left kidney. No acute disease. Reported By:
[2017-05-03 07:07] LABS: WHITE BLOOD COUNT 60.8 X10^3/uL (3.6-10.0)
--- NOTE | 2017-05-03 07:25 | RAD ---
History: Respiratory insufficiency, ventilator protocol Study: Portable chest, comparison 05/02/2017 Findings: Portable AP erect chest labeled 6:45 a.m. shows no interval change in tube or line placemen t. The cardiac silhouette remains enlarged. The pulmonary vasculature appears at least at upper limits n ormal. There are bilateral consolidative infiltrates again seen. There is increasing size of the righ t pleural effusion. Impression: 1. Persistent bibasilar infiltrates suggestive of pneumonia. 2. Increasing size right pleural effusion. Reported By:
[2017-05-03] MEDS ORDERED: DIFLUCAN 100 MG IV (MIX by PHARMACY)* 100 MG/50 ML BAG IV SCH (09:00)
[2017-05-03] MEDS: BACTRIM DS TAB PO SCH (09:12)
[2017-05-03] MEDS: ALBUMIN HUMAN 25%- 100ML 200 ML IV SCH (09:12)
[2017-05-03] MEDS: ASPIRIN 81 MG CHEWTAB PO SCH (09:12)
[2017-05-03] MEDS: FOLIC ACID TAB 1 MG PO SCH (09:13)
[2017-05-03] MEDS: HEMOCYTE-PLUS PO SCH (09:13)
[2017-05-03] MEDS: LACRI-LUBE S.O.P. AFFEYE SCH (09:13)
[2017-05-03] MEDS: MEGACE PO SCH (09:14)
[2017-05-03] MEDS: LASIX IVP SCH (09:14)
[2017-05-03] MEDS: ROBITUSSIN DM PO SCH (09:14)
[2017-05-03] MEDS: SYNTHROID 25 mcg TAB PO SCH (09:14)
[2017-05-03] MEDS: XANAX PO SCH (09:14)
[2017-05-03] MEDS: MILK OF MAGNESIA PO SCH (09:15)
[2017-05-03] MEDS: PROzac PO SCH (09:15)
[2017-05-03] MEDS: NYSTATIN POWDER TOP SCH (09:15)
[2017-05-03] MEDS ORDERED: MORPHINE SULFATE PCA 30 MG IVP PRN (11:06)
[2017-05-03] MEDS ORDERED: VERSED 100 MG in NS 100 ML IV 80 ML IV PRN (11:06)
[2017-05-03 17:23] VITALS: BP 63/45
--- NOTE | 2017-05-03 19:26 | PCM.PROG ---
Progress Note - Progress Note for Day of Date: 05/01/17 - Subjective Subjective: WAS ADMITTED FOR LEUKOCYTOSIS, PNEUMONIA, A URINARY TRACT INFECTION, AND ALTERED MENTAL STATUS. SHE ON THE MECHANICAL VENTILLATOR TODAY. SHE IS UNRESPONSIVE TO VERBAL OR PAINFUL STIMULI. HER VITALS THIS MORNING ARE 98.2-337-17-100%-91/53. SHE HAS BEEN NOTED WITH AN ELEVATED TEMPERATURE THROUGHOUT THE NIGHT. TEMPERATURE WAS NOTED TO BE 102.2 AT 0300. LABS WERE OBTAINED. ABNORMAL LAB VALUES INCLUDE THE FOLLOWING: WBC 69.9, RBC 2.53, HGB 7.4 , HCT 23.2, SODIUM 147, BUN 50, CREATININE 2.47, GLUCOSE 192, CALCIUM 7.8, AST 645, ALT 330, TOTAL PROTEIN 5.0, ALBUMIN 2.7. ARTERIAL BLOOD GAS REVEALED PH 7.450, PC02 31, P02 74, HC03 21.5, BASE EXCESS -1.7. A REPEAT SPUTUM CULTURE IS PENDING. CHEST XRAY REPORTED BILATERAL CONSOLIDATION SUGGESTIVE OF PNEUMONIA. SHE RECEIVED ONE UNIT OF PACKED RED BLOOD CELLS YESTERDAY. WE DISCUSSED PATIENT S CONDITION WITH FAMILY. THEY WISH FOR PATIENT TO REMAIN ON VENTILLATOR AND CONTINUE TO RECEIVE BLOOD IF NECESSARY. TODAY, WE WILL TRANSFUSE TWO ADDITIONAL UNITS OF PACKED RED BLOOD CELLS. WE WILL OBTAIN AN INFLUENZA SWAB DUE TO ELEVATED TEMPERATURE AND TOUCH BASES WITH . OTHERWISE, WE WILL CONTINUE WITH IV ANTIBIOTICS FOR UTI AND PNEUMONIA. WE WILL FOLLOW UP WITH AM LABS AND CHEST XRAY AND CONTINUE TO MONITOR PATIENT. - Past Medical Family Social History Past Med/Fam/Surg Hx: No changes since H&P Allergies: Allergies No Known Drug Allergies Allergy (Verified 04/13/17 18:06) - Review of Systems ROS: No change since H&P - Vital Signs and I&O's Vital Signs: Temperature 101.0 F Pulse Rate [Apical] 103 Pulse Rate 144 Respiratory Rate 9 Blood Pressure [Left Arm] 63/45 Blood Pressure [Right Arm] 132/63 Blood Pressure 102/62 O2 Sat by Pulse Oximetry 76 Intake and Output: Intake & Output 05/01/17 05/02/17 05/03/17 05/04/17 11:59 11:59 11:59 11:59 Intake Total 3327 1608 1970 895 Output Total 635 400 600 5 Balance 2692 1208 1370 890 - Physical Exam Oriented: Unable to test Eyes: negative: Normal, Blurred Vision, Diplopia, Discharge, Pain, Redness, Photophobia, Other Ear: Normal. negative: Right, Left, Swelling, Ecchymosis, Hemotypanum, Abrasion , Laceration Nose: Normal Throat: Normal. negative: Tonsillar Hypertrophy, Red, Exudate, Dry, Other Respiratory: Right, Left, Generalized, Wheezes, Rhonchi Cardiovascular: Edema (bilateral lower extremity trace edema ) : Normal Auscultation: Bowel Sounds: Normal Palpation: Normal Tenderness: Normal. negative: Rebound, Guarding, Rigidity Skin: Wound Musculoskeletal: Normal Psychiatric: Other (unresponsive, on mechanical vent ) Mood Description: Calm Affect: Normal Speech Pattern: Artificially Ventilated - Laboratory and Diagnostics Result Diagrams: 05/03/17 05:15 05/03/17 05:15 Labs: 04/30/17 07:19 Sputum - Endotracheal Wash Sputum Culture - Final 04/30/17 07:19 Sputum - Endotracheal Wash - Final 04/23/17 15:40 Blood Blood Culture - Final 04/23/17 15:35 Blood Blood Culture - Final 04/23/17 17:00 Sputum - Expectorated Sputum Sputum Culture - Final Methicillin Resis Staph Aureus Stenotrophomonas Maltophilia 04/23/17 17:00 Sputum - Expectorated Sputum - Final 04/23/17 16:01 Urine,Catheterized Urine Culture - Final Laboratory WBC 60.8 X10^3/uL (3.6-10.0) H* 05/03/17 05:15 RBC 3.52 X10^6/uL (3.5-5.4) 05/03/17 05:15 Hgb 10.5 g/dL (12.0-16.0) L 05/03/17 05:15 Hct 32.4 % (36.0-47.0) L 05/03/17 05:15 MCV 92.1 fL (80.0-100.0) 05/03/17 05:15 MCH 29.7 pg (27.0-34.0) 05/03/17 05:15 MCHC 32.3 g/dL (33.0-35.0) L 05/03/17 05:15 RDW 17.5 % (11.6-16.5) H 05/03/17 05:15 Plt Count 68 X10^3/uL (150.0-450.0) L 05/03/17 05:15 Plt Count Comment Adequate (ADEQUATE) 04/25/17 05:49 MPV 11.4 fL (7.4-11.0) H 05/03/17 05:15 Neut % 44.9 % (42.0-75.0) 05/03/17 05:15 Lymph % 0.2 % (21.0-51.0) L 05/03/17 05:15 [place] % 54.9 % (0.0-13.0) H 05/03/17 05:15 Eos % 0.0 % (0.9-2.9) L 05/03/17 05:15 Baso % 0 % (0.2-1.0) L 05/03/17 05:15 Neut # 27.3 x10^3/uL (2.2-4.8) H 05/03/17 05:15 Lymph # 0.1 X10^3/uL (1.3-2.9) L 05/03/17 05:15 [place] # 33.3 x10^3/uL (0.3-0.8) H 05/03/17 05:15 Eos # 0.0 x10^3/uL (0.0-0.2) 05/03/17 05:15 Baso # 0.0 X10^3/uL (0.0-0.1) 05/03/17 05:15 Absolute Nucleated RBC 0.4 /100WBC 05/03/17 05:15 Total Counted 100 04/25/17 05:49 Neutrophils % (Manual) 18 % (39-76) L 04/25/17 05:49 Band Neutrophils % 2 % (0-10) 04/24/17 05:45 Lymphocytes % (Manual) 12 % (13-43) L 04/25/17 05:49 Monocytes % (Manual) 4 % (4-9) 04/25/17 05:49 Eosinophils % (Manual) Cancelled 04/30/17 06:20 Basophils % (Manual) Cancelled 04/30/17 06:20 Metamyelocytes % Cancelled 04/30/17 06:20 Myelocytes % Cancelled 04/30/17 06:20 Promyelocytes % Cancelled 04/30/17 06:20 Nucleated RBCs Cancelled 04/30/17 06:20 Atypical Lymphocytes 56 04/25/17 05:49 Blast Cells 10 (-1) H 04/25/17 05:49 Smudge Cells Cancelled 04/30/17 06:20 Toxic Granulation Cancelled 04/30/17 06:20 Dohle Bodies Cancelled 04/30/17 06:20 Donaldo Rods Cancelled 04/30/17 06:20 Plt Clumps, EDTA Cancelled 04/30/17 06:20 Giant Platelets Cancelled 04/30/17 06:20 Plt Morphology Comment Normal (NORMAL) 04/25/17 05:49 RBC Morphology Normal (NORMAL) 04/25/17 05:49 Dimorphic RBCs Cancelled 04/30/17 06:20 Polychromasia Cancelled 04/30/17 06:20 Hypochromasia Slight A 04/23/17 15:35 Poikilocytosis Cancelled 04/30/17 06:20 Basophilic Stippling Cancelled 04/30/17 06:20 Anisocytosis 1+ A 04/23/17 15:35 Microcytosis Slight A 04/23/17 15:35 Macrocytosis Slight A 04/23/17 15:35 Spherocytes Cancelled 04/30/17 06:20 Pappenheimer Bodies Cancelled 04/30/17 06:20 Sickle Cells Cancelled 04/30/17 06:20 Target Cells Cancelled 04/30/17 06:20 Tear Drop Cells Cancelled 04/30/17 06:20 Ovalocytes Cancelled 04/30/17 06:20 Stomatocytes Cancelled 04/30/17 06:20 Helmet Cells Cancelled 04/30/17 06:20 [place] Bodies Cancelled 04/30/17 06:20 [place] Rings Cancelled 04/30/17 06:20 [place] Cells Cancelled 04/30/17 06:20 Crenated Cell Cancelled 04/30/17 06:20 Acanthocytes (Spur) Cancelled 04/30/17 06:20 Rouleaux Cancelled 04/30/17 06:20 Schistocytes Cancelled 04/30/17 06:20 Smear Path Review See note 04/23/17 15:35 INR Target Range - 04/23/17 15:35 INR 1.04 (0.8-1.3) 04/23/17 15:35 PTT 30.3 SECONDS (22.9-36.5) 04/23/17 15:35 PTT Comment - 04/23/17 15:35 D-Dimer 843 ng/mL (0-400) H* 04/23/17 15:35 Sample Site Rbra 05/03/17 05:43 ABG pH 7.290 (7.35-7.45) L 05/03/17 05:43 ABG pCO2 47.0 mmHg (35.0-45.0) H 05/03/17 05:43 ABG pO2 65.0 mmHg (80.0-100.0) L 05/03/17 05:43 ABG HCO3 22.6 mmol/L (22-26) 05/03/17 05:43 ABG O2 Saturation 90.0 % (90-100) 05/03/17 05:43 ABG Base Excess -4.1 mmol/L (-2.0-2.0) L 05/03/17 05:43 Bar Test Na 05/03/17 05:43 A-a Gradient 126.0 mmHg 05/03/17 05:43 FiO2 35.000 05/03/17 05:43 Blood Gas Comments Mukund abg well-mtf 05/03/17 05:43 Sodium 146 mmol/L (136-145) H 05/03/17 05:15 Corrected Sodium 146 mmol/L (136-145) H 05/03/17 05:15 Potassium 4.4 mmol/L (3.5-5.1) 05/03/17 05:15 Chloride 110 mmol/L (98-107) H 05/03/17 05:15 Carbon Dioxide 23.4 mmol/L (21-32) 05/03/17 05:15 BUN 73 mg/dL (7-18) H 05/03/17 05:15 Creatinine 3.61 mg/dL (0.55-1.02) H 05/03/17 05:15 Est GFR (MDRD) Af Amer 16 (>60) L 05/03/17 05:15 Est GFR (MDRD) Non-Af 13 (>60) L 05/03/17 05:15 Glucose 114 mg/dL (65-99) H 05/03/17 05:15 POC Glucose (mg/dL) 110 mg/dL (65-99) H 05/03/17 05:23 Lactic Acid 1.2 mmol/L (0.4-2.0) 04/23/17 15:35 Calcium 7.7 mg/dL (8.5-10.1) L 05/03/17 05:15 Corrected Calcium 8.4 mg/dL (8.5-10.1) L 05/03/17 05:15 Magnesium 2.8 mg/dL (1.7-2.9) 05/02/17 05:15 Total Bilirubin 0.80 mg/dL (0.2-1.0) 05/03/17 05:15 AST 1060 Units/L (15-37) H 05/03/17 05:15 ALT 858 Units/L (12-78) H 05/03/17 05:15 Alkaline Phosphatase 103 Units/L (46-116) 05/03/17 05:15 Creatine Kinase 103 Units/L (26-192) 04/23/17 15:35 CK-MB (CK-2) < 1.0 ng/mL (0-4.0) 04/23/17 15:35 CK/CKMB % Calc 1.0 % (<4) 04/23/17 15:35 Troponin I 0.02 ng/mL (0-1.5) 04/23/17 15:35 B-Natriuretic Peptide 1620 pg/mL (0-79) H* 04/23/17 15:35 Total Protein 5.5 g/dL (6.4-8.2) L 05/03/17 05:15 Albumin 3.1 g/dL (3.4-5.0) L 05/03/17 05:15 Globulin 2.4 g/dL (2.5-4.5) L 05/03/17 05:15 Albumin/Globulin Ratio 1.3 Ratio (1.1-2.1) 05/03/17 05:15 Specimen Type Catherized urine 04/23/17 16:01 Urine Color Yellow (YELLOW) 04/23/17 16:01 Urine Appearance Hazy (CLEAR) 04/23/17 16:01 Urine pH 5.0 (5.0 - 8.0) 04/23/17 16:01 Ur Specific [place] 1.025 (1.000-1.030) 04/23/17 16:01 Urine Protein 3+ (NEGATIVE) 04/23/17 16:01 Urine Glucose (UA) Negative (NEGATIVE) 04/23/17 16:01 Urine Ketones Negative (NEGATIVE) 04/23/17 16:01 Urine Occult Blood 2+ (NEGATIVE) 04/23/17 16:01 Urine Nitrite Negative (NEGATIVE) 04/23/17 16:01 Urine Bilirubin Negative (NEGATIVE) 04/23/17 16:01 Urine Urobilinogen Normal (NORMAL) 04/23/17 16:01 Ur Leukocyte Esterase 3+ (NEGATIVE) 04/23/17 16:01 Urine RBC 0-5 /HPF (NEGATIVE) 04/23/17 16:01 Urine WBC 6-10 /HPF (NEGATIVE) 04/23/17 16:01 Ur Squamous Epith Cells Negative /HPF (NEGATIVE) 04/23/17 16:01 Urine Bacteria 1+ /HPF (NEGATIVE) 04/23/17 16:01 Ur Culture Indicated? Yes/culture set up 04/23/17 16:01 Vancomycin Trough 39.9 ug/mL (15-20) H* 04/30/17 21:10 Random Vancomycin 36.5 ug/mL 05/01/17 11:07 Influenza Type A (PCR) Negative (NEGATIVE) 05/01/17 09:45 Influenza Type B (PCR) Negative (NEGATIVE) 05/01/17 09:45 Miscellaneous Test Leukemia panel flow 04/25/17 11:10 Blood Type O POSITIVE 04/30/17 06:50 Antibody Screen Negative 04/30/17 06:50 Crossmatch See Detail 04/30/17 06:50 - Plan (1) Respiratory failure Status: Acute Qualifiers: Chronicity: acute Respiratory failure complication: hypoxia and hypercapnia Qualified Code(s): J96.01 - Acute respiratory failure with hypoxia ; J96.02 - Acute respiratory failure with hypercapnia; J96.02 - Acute respiratory failure with hypercapnia; J96.02 - Acute respiratory failure with hypercapnia Plan: mechanical ventillation, monitor abg, continue to monitor (2) Pneumonia Status: Acute Qualifiers: Pneumonia type: due to methicillin-resistant Staphylococcus aureus (MRSA) Laterality: bilateral Lung location: lower lobe of lung Qualified Code(s): J15.212 - Pneumonia due to Methicillin resistant Staphylococcus aureus Plan: pneumonia protocol, levaquin 750mg iv daily, fortaz 1gm iv q8h, respiratory tx, supplemental oxygen, continue to monitor (3) Infection with Stenotrophomonas maltophilia resistant to multiple drugs Status: Acute Plan: BACTRIM DS 1 TAB PO BID, CONTINUE TO MONITOR (4) Altered mental state Status: Acute Qualifiers: Altered mental status type: transient alteration of awareness Qualified Code(s): R40.4 - Transient alteration of awareness Plan: treat uti, continue to monitor (5) Leukemoid reaction Status: Acute Plan: IV abx, consult , continue to monitor (6) Urinary tract infection Status: Acute Qualifiers: Urinary tract infection type: acute cystitis Hematuria presence: with hematuria Qualified Code(s): N30.01 - Acute cystitis with hematuria Plan: fortaz 1gm iv q8h, levaquin 750mg iv daily, continue to monitor (7) Congestive heart failure Status: Acute Qualifiers: Congestive heart failure type: unspecified Congestive heart failure chronicity: acute on chronic Qualified Code(s): I50.9 - Heart failure, unspecified Plan: LASIX 40MG IV BID X 2 DOSES, CONTINUE HEART FAILURE MEDS, CONTINUE RESPIRATORY TX AND SUPPLEMENTAL OXYGEN, CONTINUE TO MONITOR (8) Hypoalbuminemia Status: Acute Plan: ALBUMIN 25% 2 BAGS DAILY, CONTINUE TO MONITOR (9) Anemia Status: Acute Qualifiers: Anemia type: other cause Other causes of anemia: chronic disease, neoplastic Qualified Code(s): D63.0 - Anemia in neoplastic disease Plan: TRANSFUSE 2 UNITS PACKED RED BLOOD CELLS, CONTINUE TO MONITOR
--- NOTE | 2017-05-04 11:48 | PCM.PROG ---
Progress Note - Progress Note for Day of Date: 05/02/17 - Subjective Subjective: WAS ADMITTED FOR LEUKOCYTOSIS, PNEUMONIA, A URINARY TRACT INFECTION, AND ALTERED MENTAL STATUS. SHE ON THE MECHANICAL VENTILLATOR TODAY. SHE CONTINUES TO BE UNRESPONSIVE TO VERBAL OR PAINFUL STIMULI. HER VITALS THIS MORNING ARE 97.9-241-28-100%-130/78. SHE HAS BEEN AFEBRILE THROUGHOUT THE NIGHT. LABS WERE OBTAINED. ABNORMAL LAB VALUES INCLUDE THE FOLLOWING: WBC 58.7, RBC 2.81, HGB 8.3, HCT 25.7, PLT COUNT 70, CORRECTED SODIUM 146, CHLORIDE 110, BUN 63, CREATININE 3.13, GLUCOSE 130, CALCIUM 7.6, AST 526, ALT 437, TOTAL PROTEIN 5.0, ALBUMIN 2.8. ARTERIAL BLOOD GAS REVEALED A P02 OF 71, OTHERWISE NORMAL. CHEST XRAY REPORTED PERSISTENT BILATERAL LUNG INFILTRATES SUGGESTING PNEUMONIA. THERE APPEAR TO BE INCREASING BILATERAL PLEURAL EFFUSIONS. A KUB WAS OBTAINED THIS MORNING DUE TO LACK OF BOWEL MOVMENTS. IT REPORTED NO EVIDENCE OF BOWEL OBSTRUCTION OR PNEUMOPERITONEUM. PROBABLY MODERATELY REDUNDANT SIGMOID COLON. SMALL TO MODERATE AMOUNT OF STOOL IN THE REGION OF THE SPLENIC FLEXURE AND PROBABLY WITHIN THE RECTUM. WE ORDERED FOR A DULCOLOX SUPPOSITORY TODAY. FAMILY REQUEST THAT WE NOT ADMINISTER SOAP SUDS ENEMAS AT THIS TIME. WE DISCUSSED PATIENTS CONDITION WITH FAMILY. THEY WISH FOR PATIENT TO REMAIN ON VENTILLATOR TODAY. IF NO SIGNIFICANT IMPROVEMENT IN THE MORNING, THEY WISH FOR US TO START PALLATIVE CARE MEASURES AND TO KEEP HER COMFORTABLE. WE WILL CONTINUE WITH CURRENT PLAN OF CARE TODAY. WE WILL FOLLOW UP WITH AM LABS AND CHEST XRAY AND CONTINUE TO MONITOR PATIENT. - Past Medical Family Social History Past Med/Fam/Surg Hx: No changes since H&P Allergies: Allergies No Known Drug Allergies Allergy (Verified 04/13/17 18:06) - Review of Systems ROS: No change since H&P - Vital Signs and I&O's Vital Signs: Temperature 101.0 F Pulse Rate [Apical] 103 Pulse Rate 144 Respiratory Rate 9 Blood Pressure [Left Arm] 63/45 Blood Pressure [Right Arm] 132/63 Blood Pressure 102/62 O2 Sat by Pulse Oximetry 76 Intake and Output: Intake & Output 05/01/17 05/02/17 05/03/17 05/04/17 11:59 11:59 11:59 11:59 Intake Total 3327 1608 1970 895 Output Total 635 400 600 5 Balance 2872 1208 1370 890 - Physical Exam Oriented: Unable to test Eyes: negative: Normal, Blurred Vision, Diplopia, Discharge, Pain, Redness, Photophobia, Other Ear: Normal. negative: Right, Left, Swelling, Ecchymosis, Hemotypanum, Abrasion , Laceration Nose: Normal Throat: Normal. negative: Tonsillar Hypertrophy, Red, Exudate, Dry, Other Respiratory: Right, Left, Generalized, Wheezes, Rhonchi Cardiovascular: Edema (bilateral lower extremity trace edema ) : Normal Auscultation: Bowel Sounds: Normal Palpation: Normal Tenderness: Normal. negative: Rebound, Guarding, Rigidity Skin: Wound Musculoskeletal: Normal Psychiatric: Other (unresponsive, on mechanical vent ) Mood Description: Calm Affect: Normal Speech Pattern: Artificially Ventilated - Laboratory and Diagnostics Result Diagrams: 05/03/17 05:15 05/03/17 05:15 Labs: 04/30/17 07:19 Sputum - Endotracheal Wash Sputum Culture - Final 04/30/17 07:19 Sputum - Endotracheal Wash - Final 04/23/17 15:40 Blood Blood Culture - Final 04/23/17 15:35 Blood Blood Culture - Final 04/23/17 17:00 Sputum - Expectorated Sputum Sputum Culture - Final Methicillin Resis Staph Aureus Stenotrophomonas Maltophilia 04/23/17 17:00 Sputum - Expectorated Sputum - Final 04/23/17 16:01 Urine,Catheterized Urine Culture - Final Laboratory WBC 60.8 X10^3/uL (3.6-10.0) H* 05/03/17 05:15 RBC 3.52 X10^6/uL (3.5-5.4) 05/03/17 05:15 Hgb 10.5 g/dL (12.0-16.0) L 05/03/17 05:15 Hct 32.4 % (36.0-47.0) L 05/03/17 05:15 MCV 92.1 fL (80.0-100.0) 05/03/17 05:15 MCH 29.7 pg (27.0-34.0) 05/03/17 05:15 MCHC 32.3 g/dL (33.0-35.0) L 05/03/17 05:15 RDW 17.5 % (11.6-16.5) H 05/03/17 05:15 Plt Count 68 X10^3/uL (150.0-450.0) L 05/03/17 05:15 Plt Count Comment Adequate (ADEQUATE) 04/25/17 05:49 MPV 11.4 fL (7.4-11.0) H 05/03/17 05:15 Neut % 44.9 % (42.0-75.0) 05/03/17 05:15 Lymph % 0.2 % (21.0-51.0) L 05/03/17 05:15 [place] % 54.9 % (0.0-13.0) H 05/03/17 05:15 Eos % 0.0 % (0.9-2.9) L 05/03/17 05:15 Baso % 0 % (0.2-1.0) L 05/03/17 05:15 Neut # 27.3 x10^3/uL (2.2-4.8) H 05/03/17 05:15 Lymph # 0.1 X10^3/uL (1.3-2.9) L 05/03/17 05:15 [place] # 33.3 x10^3/uL (0.3-0.8) H 05/03/17 05:15 Eos # 0.0 x10^3/uL (0.0-0.2) 05/03/17 05:15 Baso # 0.0 X10^3/uL (0.0-0.1) 05/03/17 05:15 Absolute Nucleated RBC 0.4 /100WBC 05/03/17 05:15 Total Counted 100 04/25/17 05:49 Neutrophils % (Manual) 18 % (39-76) L 04/25/17 05:49 Band Neutrophils % 2 % (0-10) 04/24/17 05:45 Lymphocytes % (Manual) 12 % (13-43) L 04/25/17 05:49 Monocytes % (Manual) 4 % (4-9) 04/25/17 05:49 Eosinophils % (Manual) Cancelled 04/30/17 06:20 Basophils % (Manual) Cancelled 04/30/17 06:20 Metamyelocytes % Cancelled 04/30/17 06:20 Myelocytes % Cancelled 04/30/17 06:20 Promyelocytes % Cancelled 04/30/17 06:20 Nucleated RBCs Cancelled 04/30/17 06:20 Atypical Lymphocytes 56 04/25/17 05:49 Blast Cells 10 (-1) H 04/25/17 05:49 Smudge Cells Cancelled 04/30/17 06:20 Toxic Granulation Cancelled 04/30/17 06:20 Dohle Bodies Cancelled 04/30/17 06:20 Donaldo Rods Cancelled 04/30/17 06:20 Plt Clumps, EDTA Cancelled 04/30/17 06:20 Giant Platelets Cancelled 04/30/17 06:20 Plt Morphology Comment Normal (NORMAL) 04/25/17 05:49 RBC Morphology Normal (NORMAL) 04/25/17 05:49 Dimorphic RBCs Cancelled 04/30/17 06:20 Polychromasia Cancelled 04/30/17 06:20 Hypochromasia Slight A 04/23/17 15:35 Poikilocytosis Cancelled 04/30/17 06:20 Basophilic Stippling Cancelled 04/30/17 06:20 Anisocytosis 1+ A 04/23/17 15:35 Microcytosis Slight A 04/23/17 15:35 Macrocytosis Slight A 04/23/17 15:35 Spherocytes Cancelled 04/30/17 06:20 Pappenheimer Bodies Cancelled 04/30/17 06:20 Sickle Cells Cancelled 04/30/17 06:20 Target Cells Cancelled 04/30/17 06:20 Tear Drop Cells Cancelled 04/30/17 06:20 Ovalocytes Cancelled 04/30/17 06:20 Stomatocytes Cancelled 04/30/17 06:20 Helmet Cells Cancelled 04/30/17 06:20 [place] Bodies Cancelled 04/30/17 06:20 [place] Rings Cancelled 04/30/17 06:20 [place] Cells Cancelled 04/30/17 06:20 Crenated Cell Cancelled 04/30/17 06:20 Acanthocytes (Spur) Cancelled 04/30/17 06:20 Rouleaux Cancelled 04/30/17 06:20 Schistocytes Cancelled 04/30/17 06:20 Smear Path Review See note 04/23/17 15:35 INR Target Range - 04/23/17 15:35 INR 1.04 (0.8-1.3) 04/23/17 15:35 PTT 30.3 SECONDS (22.9-36.5) 04/23/17 15:35 PTT Comment - 04/23/17 15:35 D-Dimer 843 ng/mL (0-400) H* 04/23/17 15:35 Sample Site Rbra 05/03/17 05:43 ABG pH 7.290 (7.35-7.45) L 05/03/17 05:43 ABG pCO2 47.0 mmHg (35.0-45.0) H 05/03/17 05:43 ABG pO2 65.0 mmHg (80.0-100.0) L 05/03/17 05:43 ABG HCO3 22.6 mmol/L (22-26) 05/03/17 05:43 ABG O2 Saturation 90.0 % (90-100) 05/03/17 05:43 ABG Base Excess -4.1 mmol/L (-2.0-2.0) L 05/03/17 05:43 Bar Test Na 05/03/17 05:43 A-a Gradient 126.0 mmHg 05/03/17 05:43 FiO2 35.000 05/03/17 05:43 Blood Gas Comments Mukund abg well-mtf 05/03/17 05:43 Sodium 146 mmol/L (136-145) H 05/03/17 05:15 Corrected Sodium 146 mmol/L (136-145) H 05/03/17 05:15 Potassium 4.4 mmol/L (3.5-5.1) 05/03/17 05:15 Chloride 110 mmol/L (98-107) H 05/03/17 05:15 Carbon Dioxide 23.4 mmol/L (21-32) 05/03/17 05:15 BUN 73 mg/dL (7-18) H 05/03/17 05:15 Creatinine 3.61 mg/dL (0.55-1.02) H 05/03/17 05:15 Est GFR (MDRD) Af Amer 16 (>60) L 05/03/17 05:15 Est GFR (MDRD) Non-Af 13 (>60) L 05/03/17 05:15 Glucose 114 mg/dL (65-99) H 05/03/17 05:15 POC Glucose (mg/dL) 110 mg/dL (65-99) H 05/03/17 05:23 Lactic Acid 1.2 mmol/L (0.4-2.0) 04/23/17 15:35 Calcium 7.7 mg/dL (8.5-10.1) L 05/03/17 05:15 Corrected Calcium 8.4 mg/dL (8.5-10.1) L 05/03/17 05:15 Magnesium 2.8 mg/dL (1.7-2.9) 05/02/17 05:15 Total Bilirubin 0.80 mg/dL (0.2-1.0) 05/03/17 05:15 AST 1060 Units/L (15-37) H 05/03/17 05:15 ALT 858 Units/L (12-78) H 05/03/17 05:15 Alkaline Phosphatase 103 Units/L (46-116) 05/03/17 05:15 Creatine Kinase 103 Units/L (26-192) 04/23/17 15:35 CK-MB (CK-2) < 1.0 ng/mL (0-4.0) 04/23/17 15:35 CK/CKMB % Calc 1.0 % (<4) 04/23/17 15:35 Troponin I 0.02 ng/mL (0-1.5) 04/23/17 15:35 B-Natriuretic Peptide 1620 pg/mL (0-79) H* 04/23/17 15:35 Total Protein 5.5 g/dL (6.4-8.2) L 05/03/17 05:15 Albumin 3.1 g/dL (3.4-5.0) L 05/03/17 05:15 Globulin 2.4 g/dL (2.5-4.5) L 05/03/17 05:15 Albumin/Globulin Ratio 1.3 Ratio (1.1-2.1) 05/03/17 05:15 Specimen Type Catherized urine 04/23/17 16:01 Urine Color Yellow (YELLOW) 04/23/17 16:01 Urine Appearance Hazy (CLEAR) 04/23/17 16:01 Urine pH 5.0 (5.0 - 8.0) 04/23/17 16:01 Ur Specific [place] 1.025 (1.000-1.030) 04/23/17 16:01 Urine Protein 3+ (NEGATIVE) 04/23/17 16:01 Urine Glucose (UA) Negative (NEGATIVE) 04/23/17 16:01 Urine Ketones Negative (NEGATIVE) 04/23/17 16:01 Urine Occult Blood 2+ (NEGATIVE) 04/23/17 16:01 Urine Nitrite Negative (NEGATIVE) 04/23/17 16:01 Urine Bilirubin Negative (NEGATIVE) 04/23/17 16:01 Urine Urobilinogen Normal (NORMAL) 04/23/17 16:01 Ur Leukocyte Esterase 3+ (NEGATIVE) 04/23/17 16:01 Urine RBC 0-5 /HPF (NEGATIVE) 04/23/17 16:01 Urine WBC 6-10 /HPF (NEGATIVE) 04/23/17 16:01 Ur Squamous Epith Cells Negative /HPF (NEGATIVE) 04/23/17 16:01 Urine Bacteria 1+ /HPF (NEGATIVE) 04/23/17 16:01 Ur Culture Indicated? Yes/culture set up 04/23/17 16:01 Vancomycin Trough 39.9 ug/mL (15-20) H* 04/30/17 21:10 Random Vancomycin 36.5 ug/mL 05/01/17 11:07 Influenza Type A (PCR) Negative (NEGATIVE) 05/01/17 09:45 Influenza Type B (PCR) Negative (NEGATIVE) 05/01/17 09:45 Miscellaneous Test Leukemia panel flow 04/25/17 11:10 Blood Type O POSITIVE 04/30/17 06:50 Antibody Screen Negative 04/30/17 06:50 Crossmatch See Detail 04/30/17 06:50 - Plan (1) Respiratory failure Status: Acute Qualifiers: Chronicity: acute Respiratory failure complication: hypoxia and hypercapnia Qualified Code(s): J96.01 - Acute respiratory failure with hypoxia ; J96.02 - Acute respiratory failure with hypercapnia; J96.02 - Acute respiratory failure with hypercapnia; J96.02 - Acute respiratory failure with hypercapnia Plan: mechanical ventillation, monitor abg, continue to monitor (2) Pneumonia Status: Acute Qualifiers: Pneumonia type: due to methicillin-resistant Staphylococcus aureus (MRSA) Laterality: bilateral Lung location: lower lobe of lung Qualified Code(s): J15.212 - Pneumonia due to Methicillin resistant Staphylococcus aureus Plan: pneumonia protocol, levaquin 750mg iv daily, fortaz 1gm iv q8h, respiratory tx, supplemental oxygen, continue to monitor (3) Infection with Stenotrophomonas maltophilia resistant to multiple drugs Status: Acute Plan: BACTRIM DS 1 TAB PO BID, CONTINUE TO MONITOR (4) Altered mental state Status: Acute Qualifiers: Altered mental status type: transient alteration of awareness Qualified Code(s): R40.4 - Transient alteration of awareness Plan: treat uti, continue to monitor (5) Leukemoid reaction Status: Acute Plan: IV abx, consult , continue to monitor (6) Urinary tract infection Status: Acute Qualifiers: Urinary tract infection type: acute cystitis Hematuria presence: with hematuria Qualified Code(s): N30.01 - Acute cystitis with hematuria Plan: fortaz 1gm iv q8h, levaquin 750mg iv daily, continue to monitor (7) Congestive heart failure Status: Acute Qualifiers: Congestive heart failure type: unspecified Congestive heart failure chronicity: acute on chronic Qualified Code(s): I50.9 - Heart failure, unspecified Plan: LASIX 40MG IV BID X 2 DOSES, CONTINUE HEART FAILURE MEDS, CONTINUE RESPIRATORY TX AND SUPPLEMENTAL OXYGEN, CONTINUE TO MONITOR (8) Hypoalbuminemia Status: Acute Plan: ALBUMIN 25% 2 BAGS DAILY, CONTINUE TO MONITOR (9) Anemia Status: Acute Qualifiers: Anemia type: other cause Other causes of anemia: chronic disease, neoplastic Qualified Code(s): D63.0 - Anemia in neoplastic disease Plan: TRANSFUSE 2 UNITS PACKED RED BLOOD CELLS, CONTINUE TO MONITOR
== END 2017-05-03 19:20 | disposition expired | DRG 208 ==
LOC: ER 15:28 → ICU 18:28
PROVIDERS: ADMIT Internal Medicine; ATTEND Internal Medicine
PROC: 5A12012 Performance of Cardiac Output, Single, Manual (ICD-10-PCS; principal; 2017-04-30)
PROC: 0BH17EZ Insertion of Endotracheal Airway into Trachea, Via Natural or Artificial Opening (ICD-10-PCS; 2017-04-30)
PROC: 5A1945Z Respiratory Ventilation, 24-96 Consecutive Hours (ICD-10-PCS; 2017-04-30)
PROC: 0D9670Z Drainage of Stomach with Drainage Device, Via Natural or Artificial Opening (ICD-10-PCS; 2017-04-30)
PROC: 30233N1 Transfusion of Nonautologous Red Blood Cells into Peripheral Vein, Percutaneous Approach (ICD-10-PCS; 2017-04-30)
PROC: 05H533Z Insertion of Infusion Device into Right Subclavian Vein, Percutaneous Approach (ICD-10-PCS; 2017-04-30)
PROC: 30233N1 Transfusion of Nonautologous Red Blood Cells into Peripheral Vein, Percutaneous Approach (ICD-10-PCS; 2017-05-01)
PROC: 30233N1 Transfusion of Nonautologous Red Blood Cells into Peripheral Vein, Percutaneous Approach (ICD-10-PCS; 2017-05-02)
DX: J15.212 Pneumonia due to Methicillin resistant Staphylococcus aureus (principal); J15.1 Pneumonia due to Pseudomonas; J96.01 Acute respiratory failure with hypoxia; J96.02 Acute respiratory failure with hypercapnia; N30.01 Acute cystitis with hematuria; J90 Pleural effusion, not elsewhere classified; C85.90 Non-Hodgkin lymphoma, unspecified, unspecified site; D72.823 Leukemoid reaction; R41.82 Altered mental status, unspecified; E78.2 Mixed hyperlipidemia; I10 Essential (primary) hypertension; E11.65 Type 2 diabetes mellitus with hyperglycemia; R94.31 Abnormal electrocardiogram [ECG] [EKG]; Z99.81 Dependence on supplemental oxygen; R53.1 Weakness; E03.8 Other specified hypothyroidism; R60.1 Generalized edema; I50.9 Heart failure, unspecified; I51.7 Cardiomegaly; D63.0 Anemia in neoplastic disease; Z66 Do not resuscitate; R26.89 Other abnormalities of gait and mobility
CPT/HCPCS: 31500; 36415; 36430; 36600; 70450; 71045; 74018; 80053; 80202; 81001; 82550; 82553; 82565; 82803; 82947; 83605; 83735; 83880; 84484; 85014; 85018; 85025; 85060; 85378; 85610; 85730; 86850; 86900; 86901; 86922; 87040; 87070; 87077; 87086; 87186; 87205; 87502; 88184; 88185; 93005; 94002; 94003; 94640; 96365; 96367; 97535; 99284; 99285; A4216; A4217; A4222; P9016; P9047; S0179; J0713; J1200; J1265; J1940; J1956; J2250; J2271; J2405; J3370; J3490; J7620